=== PATIENT | male | born 1965 | race Caucasian/White ===

== ENCOUNTER 2016-03-13 05:55 | Emergency (ER) | payer OTHER ==
[~2016-03-13] VITALS: Ht 172.7 cm; Wt 125.0 kg
[~2016-03-13 05:55] MED LIST: CMD5 PO; OMEP40CA PO; PRAM1TAB52 PO
[2016-03-13 05:59] VITALS: Ht 172.7 cm; Wt 125.0 kg
[2016-03-13] MEDS ORDERED: PROPARACAINE HCL 0.5% OP SOLN 15 ML BTL OP STA (06:02)
[2016-03-13] MEDS ORDERED: VANCOMYCIN INJ 2,000 MG in SODIUM CHLORIDE 0.9% 500ML 500 ML IV STA (06:09)
[2016-03-13] MEDS ORDERED: ACETAMINOPHEN 500 MG TAB PO STA (06:09)
[2016-03-13] MEDS ORDERED: CEFTRIAXONE SOD INJ 2,000 MG in DEXTROSE 5% 50ML 50 ML IV STA (06:09)
[2016-03-13] MEDS ORDERED: WARF5TAB90 PO (06:15)
[2016-03-13] MEDS ORDERED: DEXAMETHASONE SOD INJ 10 MG/ML VIAL IV ONE (06:15)
[2016-03-13 06:36] LABS: BASO % 0.6 %; BASO ABS # 0.03 K/uL (0-0.2); COMPLETE YES; EOS % 7.7 %; HEMATOCRIT 43.1 % (42-52); IG% 0.2 %; LYMPH % 32.8 %; LYMPH ABS # 1.57 K/uL (1.2-3.4); MEAN CELL VOLUME 88.5 fL (80-100); MEAN CORPUSCULAR HEMOGLOBIN 30.4 pg (25-34); MEAN CORPUSCULAR HGB CONC 34.3 g/dl (32-36); MEAN PLATELET VOLUME 8.9 fL (7.4-10.4); MONO % 11.9 %; NEUT % 46.8 %; PLATELET COUNT 220 K/uL (130-400); RED BLOOD COUNT 4.87 M/uL (4.7-6.1); WHITE BLOOD COUNT 4.78 K/uL (4.8-10.8)
[2016-03-13] MEDS ORDERED: CIPROFLOXACIN HCL 0.3% OP SOLN 2.5 ML BTL OP STA (06:39)
[2016-03-13 06:57] LABS: INR 2.1 (0.9-1.1); PARTIAL THROMBOPLASTIN RATIO 1.5; PROTHROMBIN TIME (PATIENT) 23.2 SECONDS (9.0-12.0)
[2016-03-13 07:08] LABS: CALCIUM 9.1 mg/dl (8.5-10.1); CREATININE 0.8 mg/dl (0.60-1.40); POTASSIUM 4.1 mmol/L (3.5-5.1)
--- NOTE | 2016-03-13 08:19 | DIAGNOSTIC IMAGING REPORT ---
CT ORBITS/SELLA/TEMP WITH CT DOSE: 966.75 mGy.cm CLINICAL HISTORY: Left orbital infection. Possible orbital cellulitis. TECHNIQUE: The patient was scanned in a dynamic helical fashion during intravenous administration of 94 cc of Optiray 320. COMPARISON STUDY: None. FINDINGS: No salivary gland masses are visualized. There is no evidence of pathologic adenopathy. There is preseptal left periorbital edema, consistent with the diagnosis of a cellulitis. There is a tiny collection adjacent the left globe laterally. This may represent a small abscess. There is no evidence of a post septal abscess. There is mild mucosal thickening within the right maxilla sinus. There is a left maxilla sinus polyp/retention cyst. There are inflammatory changes within the void and sphenoid sinuses. There is sphenoid sinus wall thickening suggesting a chronic process. IMPRESSION: 1. Edema adjacent to the left globe with a possible tiny abscess adjacent the lateral margin of the left globe. The findings are consistent with the clinical diagnosis of a orbital cellulitis. There is no evidence of a post septal abscess. 2. Inflammatory changes within the maxillary ethmoid and sphenoid sinuses. Electronically signed by: Leroy Moran M.D. 03/13/2016 8:17 AM Dictated Date/Time: 03/13/2016 8:12 AM
[2016-03-13 09:45] VITALS: TEMP 36.7
--- NOTE | 2016-03-13 10:33 | EMERGENCY ROOM VISIT NOTE ---
ED Visit Note First contact with patient: 09:15 Patient care was assumed from Lexie Lora PA-C at the time of shift change. Please see Ms. Lora's dictation for full history of present illness and emergency Department course outside of this dictation. In short, the patient has what appears to be a left periorbital cellulitis on examination. Blood work was obtained and he does not have an elevated white blood cell count or lactic acid. The patient does have some pain with ocular movement of the left thigh, and CT scan was pending at the time of shift change. The patient's CT scan returned as below: CT ORBITS/SELLA/TEMP WITH CT DOSE: 966.75 mGy.cm CLINICAL HISTORY: Left orbital infection. Possible orbital cellulitis. TECHNIQUE: The patient was scanned in a dynamic helical fashion during intravenous administration of 94 cc of Optiray 320. COMPARISON STUDY: None. FINDINGS: No salivary gland masses are visualized. There is no evidence of pathologic adenopathy. There is preseptal left periorbital edema, consistent with the diagnosis of a cellulitis. There is a tiny collection adjacent the left globe laterally. This may represent a small abscess. There is no evidence of a post septal abscess. There is mild mucosal thickening within the right maxilla sinus. There is a left maxilla sinus polyp/retention cyst. There are inflammatory changes within the void and sphenoid sinuses. There is sphenoid sinus wall thickening suggesting a chronic process. IMPRESSION: 1. Edema adjacent to the left globe with a possible tiny abscess adjacent the lateral margin of the left globe. The findings are consistent with the clinical diagnosis of a orbital cellulitis. There is no evidence of a post septal abscess. 2. Inflammatory changes within the maxillary ethmoid and sphenoid sinuses. The CT scan is concerning for periorbital cellulitis and abscess. I discussed the case with ophthalmology, Dr. Minor, and we do not have the capacity to handle orbital surgery at this facility if his abscess requires drainage. Because of this the recommendation was for transfer to a tertiary care center. I discussed the CT findings and recommendations with the patient. He has a preference to go to [facility], and I spoke with the emergency department. The ED attending Dr. Dickson accepted transfer to the emergency department. Appropriate paperwork and consents were completed. The patient will be transferred via ALS. He remained in stable condition until the time of his transfer. Problem List Medical Problems: (1) Shelton esophagus Status: Chronic (2) Hernia, incisional Status: Resolved Surgical Problems: (1) H/O exploratory laparotomy Status: Resolved Current/Historical Medications Scheduled Omeprazole (Prilosec), 40 MG PO DAILY Pramipexole Dihydrochloride (Mirapex), 0.5 MG PO HS Warfarin Sod (Coumadin), 5 MG PO DAILY@16 Warfarin Sodium (Coumadin), Unknown Dose PO DAILY Allergies Coded Allergies: Latex (Verified Allergy, Intermediate, RASH, 03/13/16) Penicillin V (Verified Allergy, Intermediate, RASH, 03/13/16) Clarithromycin (Verified Allergy, Unknown, 0, 03/13/16) Vital Signs Date Time Temp Pulse Resp B/P Pulse Ox O2 Delivery O2 Flow Rate FiO2 03/13/16 09:45 36.7 78 18 153/99 96 Room Air 03/13/16 08:02 68 18 156/88 95 Room Air 03/13/16 06:11 164/94 03/13/16 05:59 36.8 77 18 174/98 95 Room Air Laboratory Results 03/13/16 06:20 Red Blood Count 4.87, Mean Corpuscular Volume 88.5, Mean Corpuscular Hemoglobin 30.4, Mean Corpuscular Hemoglobin Concent 34.3, Mean Platelet Volume 8.9, Neutrophils (%) (Auto) 46.8, Lymphocytes (%) (Auto) 32.8, Monocytes (%) (Auto) 11.9, Eosinophils (%) (Auto) 7.7, Basophils (%) (Auto) 0.6, Neutrophils # (Auto ) 2.23, Lymphocytes # (Auto) 1.57, Monocytes # (Auto) 0.57, Eosinophils # (Auto ) 0.37, Basophils # (Auto) 0.03 03/13/16 06:20 Test 03/13/16 06:20 03/13/16 06:22 White Blood Count 4.78 K/uL (4.8-10.8) Red Blood Count 4.87 M/uL (4.7-6.1) Hemoglobin 14.8 g/dL (14.0-18.0) Hematocrit 43.1 % (42-52) Mean Corpuscular Volume 88.5 fL (80-100) Mean Corpuscular Hemoglobin 30.4 pg (25-34) Mean Corpuscular Hemoglobin Concent 34.3 g/dl (32-36) Platelet Count 220 K/uL (130-400) Mean Platelet Volume 8.9 fL (7.4-10.4) Neutrophils (%) (Auto) 46.8 % Lymphocytes (%) (Auto) 32.8 % Monocytes (%) (Auto) 11.9 % Eosinophils (%) (Auto) 7.7 % Basophils (%) (Auto) 0.6 % Neutrophils # (Auto) 2.23 K/uL (1.4-6.5) Lymphocytes # (Auto) 1.57 K/uL (1.2-3.4) Monocytes # (Auto) 0.57 K/uL (0.11-0.59) Eosinophils # (Auto) 0.37 K/uL (0-0.5) Basophils # (Auto) 0.03 K/uL (0-0.2) RDW Standard Deviation 40.2 fL (36.4-46.3) RDW Coefficient of Variation 12.5 % (11.5-14.5) Immature Granulocyte % (Auto) 0.2 % Immature Granulocyte # (Auto) 0.01 K/uL (0.00-0.02) Prothrombin Time 23.2 SECONDS (9.0-12.0) Prothromb Time International Ratio 2.1 (0.9-1.1) Activated Partial Thromboplast Time 39.2 SECONDS (21.0-31.0) Partial Thromboplastin Ratio 1.5 Anion Gap 10.0 mmol/L (3-11) Est Creatinine Clear Calc Drug Dose 139.1 ml/min Estimated GFR () 119.0 Estimated GFR (Non- 102.7 BUN/Creatinine Ratio 19.0 (10-20) Calcium Level 9.1 mg/dl (8.5-10.1) Chemistry Specimen Hemolysis Bedside Lactic Acid Venous 0.94 mmol/L (0.90-1.70) Medications Administered Medications (Trade) Dose Ordered Sig/Sarah Route Start Time Stop Time Status Last Admin Dose Admin Proparacaine HCl (Alcaine 0.5% Oph Soln) 2 drops NOW STAT OP 03/13/16 06:02 03/13/16 06:04 DC 03/13/16 06:02 2 DROPS Dexamethasone Sodium Phosphate (Decadron Inj) 10 mg NOW ONCE IV 03/13/16 06:15 03/13/16 06:17 DC 03/13/16 06:35 10 MG Acetaminophen 1000 mg 1,000 mg NOW STAT PO 03/13/16 06:09 03/13/16 06:17 DC 03/13/16 06:35 1,000 MG Ceftriaxone Sodium 2000 mg/ Dextrose 70 ml @ 100 mls/hr ONE STAT IV 03/13/16 06:09 03/13/16 06:50 DC 03/13/16 07:02 100 MLS/HR Vancomycin HCl/ Sodium Chloride (Vancomycin Inj/ Nss 500ml) 540 ml @ 200 mls/hr ONE STAT IV 03/13/16 06:09 03/13/16 08:50 DC 03/13/16 08:00 200 MLS/HR Ciprofloxacin HCl (Ciprofloxacin 0.3% Op Soln) 1 drops NOW STAT OP 03/13/16 06:39 03/13/16 06:41 DC 03/13/16 06:53 1 DROPS Departure Information Impression Primary Impression: Periorbital cellulitis of left eye Additional Impression: Abscess of left periorbital region Dispostion Transfer Acute Care Facility Referrals Baljeet De La Cruz M.D.([facility]) (PCP) Patient Instructions A Signature Page, My [facility]
[2016-03-13 10:35] VITALS: BP 155/96; PULSE 88; O2SAT 95
--- NOTE | 2016-03-22 06:23 | EMERGENCY ROOM VISIT NOTE ---
History First contact with patient: 06:02 Chief Complaint: EYE PAIN Stated Complaint: SWOLLEN LEFT EYE, BURNING, EYE PAIN History of Present Illness The patient is a 51 year old male who presents to the Emergency Room with complaints of swollen left eye with white drainage and pain for the past day. Patient went to the family yesterday and was started on clindamycin. He states this has gotten worse. He describes pain as throbbing, ranging in severity 6 out of 10. He has pain with EOMI. Patient denies loss of vision, chest pain, dyspnea, fever, chills, cough, congestion, injury to the eye, ear pain, dental pain, sore throat, dysphagia. Tetanus is current. His renal carcinoma is in remission. No recent chemotherapy or radiation. Review of Systems See HPI for pertinent positives & negatives. A total of 10 systems reviewed and were otherwise negative. Past Medical/Surgical History Medical Problems: (1) Shelton esophagus (2) Hernia, incisional (3) Pulmonary embolism Surgical Problems: (1) H/O exploratory laparotomy Social History Smoking Status: Never Smoker Drug Use: none Marital Status: Housing Status: lives with family Occupation Status: employed Current/Historical Medications Scheduled Omeprazole (Prilosec), 40 MG PO DAILY Pramipexole Dihydrochloride (Mirapex), 0.5 MG PO HS Warfarin Sod (Coumadin), 5 MG PO DAILY@16 Warfarin Sodium (Coumadin), Unknown Dose PO DAILY Allergies Coded Allergies: Latex (Verified Allergy, Intermediate, RASH, 03/13/16) Penicillin V (Verified Allergy, Intermediate, RASH, 03/13/16) Clarithromycin (Verified Allergy, Unknown, 0, 03/13/16) Physical Exam Vital Signs Date Time Temp Pulse Resp B/P Pulse Ox O2 Delivery O2 Flow Rate FiO2 03/13/16 10:35 88 18 155/96 95 Room Air 03/13/16 09:45 36.7 78 18 153/99 96 Room Air 03/13/16 08:02 68 18 156/88 95 Room Air 03/13/16 06:11 164/94 03/13/16 05:59 36.8 77 18 174/98 95 Room Air Right Eye Acuity: 20/30 Physical Exam VITALS: Vitals are noted on the nurse's note and reviewed by myself. Vital signs stable. GENERAL: Pleasant male, in no acute distress, nondiaphoretic, well-developed well-nourished. SKIN: Left eye with periorbital edema and erythema concerning for cellulitis The rest of the skin was without rashes, erythema, edema, or bruising. There is no tenting of the skin. Capillary reflex less than 2 seconds. HEAD: Normocephalic atraumatic. EARS: External auditory canals clear, tympanic membranes pearly ruiz without erythema or effusion bilaterally. EYES: Pupils equal round and reactive to light and accommodation. Left conjunctiva with injection and chemosis present with minimal white discharge; right Conjunctivae without injection, sclerae without icterus. Extraocular movements intact. Painful EOMI of the left eye. NOSE: Patent, turbinates without inflammation or discharge. No sinus tenderness. MOUTH: Mucous membranes moist. Tonsils are not enlarged. Pharynx without erythema or exudate. Uvula midline. Airway patent. Tongue does not deviate. NECK: Supple without nuchal rigidity. No lymphadenopathy. No thyromegaly. Cervical spine is nontender. No JVD. HEART: Regular rate and rhythm LUNGS: Clear to auscultation bilaterally without wheezes, rales or rhonchi. No dullness to percussion. No retractions or accessory muscle use. ABDOMEN: Positive bowel sounds x 4. Normal tympanic percussion. Soft, nontender, without masses or organomegaly. Perales sign negative. No guarding or rebound tenderness. MUSCULOSKELETAL: No muscle atrophy, erythema, noted. NEURO: Patient was alert and oriented to person place and time. Normal sensation to light and sharp touch. No focal neurological deficits. Medical Decision & Procedures Laboratory Results 03/13/16 06:20 Red Blood Count 4.87, Mean Corpuscular Volume 88.5, Mean Corpuscular Hemoglobin 30.4, Mean Corpuscular Hemoglobin Concent 34.3, Mean Platelet Volume 8.9, Neutrophils (%) (Auto) 46.8, Lymphocytes (%) (Auto) 32.8, Monocytes (%) (Auto) 11.9, Eosinophils (%) (Auto) 7.7, Basophils (%) (Auto) 0.6, Neutrophils # (Auto ) 2.23, Lymphocytes # (Auto) 1.57, Monocytes # (Auto) 0.57, Eosinophils # (Auto ) 0.37, Basophils # (Auto) 0.03 03/13/16 06:20 Test 03/13/16 06:20 03/13/16 06:22 White Blood Count 4.78 K/uL (4.8-10.8) Red Blood Count 4.87 M/uL (4.7-6.1) Hemoglobin 14.8 g/dL (14.0-18.0) Hematocrit 43.1 % (42-52) Mean Corpuscular Volume 88.5 fL (80-100) Mean Corpuscular Hemoglobin 30.4 pg (25-34) Mean Corpuscular Hemoglobin Concent 34.3 g/dl (32-36) Platelet Count 220 K/uL (130-400) Mean Platelet Volume 8.9 fL (7.4-10.4) Neutrophils (%) (Auto) 46.8 % Lymphocytes (%) (Auto) 32.8 % Monocytes (%) (Auto) 11.9 % Eosinophils (%) (Auto) 7.7 % Basophils (%) (Auto) 0.6 % Neutrophils # (Auto) 2.23 K/uL (1.4-6.5) Lymphocytes # (Auto) 1.57 K/uL (1.2-3.4) Monocytes # (Auto) 0.57 K/uL (0.11-0.59) Eosinophils # (Auto) 0.37 K/uL (0-0.5) Basophils # (Auto) 0.03 K/uL (0-0.2) RDW Standard Deviation 40.2 fL (36.4-46.3) RDW Coefficient of Variation 12.5 % (11.5-14.5) Immature Granulocyte % (Auto) 0.2 % Immature Granulocyte # (Auto) 0.01 K/uL (0.00-0.02) Prothrombin Time 23.2 SECONDS (9.0-12.0) Prothromb Time International Ratio 2.1 (0.9-1.1) Activated Partial Thromboplast Time 39.2 SECONDS (21.0-31.0) Partial Thromboplastin Ratio 1.5 Anion Gap 10.0 mmol/L (3-11) Est Creatinine Clear Calc Drug Dose 139.1 ml/min Estimated GFR () 119.0 Estimated GFR (Non- 102.7 BUN/Creatinine Ratio 19.0 (10-20) Calcium Level 9.1 mg/dl (8.5-10.1) Chemistry Specimen Hemolysis Bedside Lactic Acid Venous 0.94 mmol/L (0.90-1.70) Medications Administered Medications (Trade) Dose Ordered Sig/Sarah Route Start Time Stop Time Status Last Admin Dose Admin Proparacaine HCl (Alcaine 0.5% Oph Soln) 2 drops NOW STAT OP 03/13/16 06:02 03/13/16 06:04 DC 03/13/16 06:02 2 DROPS Dexamethasone Sodium Phosphate (Decadron Inj) 10 mg NOW ONCE IV 03/13/16 06:15 03/13/16 06:17 DC 03/13/16 06:35 10 MG Acetaminophen 1000 mg 1,000 mg NOW STAT PO 03/13/16 06:09 03/13/16 06:17 DC 03/13/16 06:35 1,000 MG Ceftriaxone Sodium 2000 mg/ Dextrose 70 ml @ 100 mls/hr ONE STAT IV 03/13/16 06:09 03/13/16 06:50 DC 03/13/16 07:02 100 MLS/HR Vancomycin HCl/ Sodium Chloride (Vancomycin Inj/ Nss 500ml) 540 ml @ 200 mls/hr ONE STAT IV 03/13/16 06:09 03/13/16 08:50 DC 03/13/16 08:00 200 MLS/HR Ciprofloxacin HCl (Ciprofloxacin 0.3% Op Soln) 1 drops NOW STAT OP 03/13/16 06:39 03/13/16 06:41 DC 03/13/16 06:53 1 DROPS Procedure Slit Lamp Examination Indication: Left eye erythema and drainage The left eye was prepped with topical proparacaine. Slit lamp examination was performed in the standard fashion. Cornea appeared clear. Anterior chamber clear. Conjunctiva injection present of the left eye with clear white discharge present. Fluorescein examination performed and revealed no uptake. No foreign bodies noted. Negative Benji sign. The patient tolerated the procedure well without complication. ED Course Prior records reviewed and summarized as above. Triage Nursing notes reviewed. Additional history obtained from family The patient's history was concerning for swelling and redness of the skin around the left eye. Differential diagnosis: Etiologies such as orbital cellulitis, preseptal cellulitis, abscess, MRSA infection, conjunctivitis, as well as others were entertained.. Physical examination: As above ER treatment provided: Rocephin, vancomycin On reassessment the patient felt better. Diagnostics interpreted by me: The labs revealed no anemia No leukocytosis. Negative lactic acid Imaging studies: Pending Case was signed out to Keegan Gonzalez PA-C pending CT and reevaluation in stable condition. Medical Decision As above Impression Primary Impression: Preseptal cellulitis of left eye Departure Information Referrals Baljeet De La Cruz M.D.([facility]) (PCP) Patient Instructions A Signature Page, My [facility]
[2016-05-01] MEDS ORDERED: WARF5TAB7 PO (14:58)
[2016-05-01] MEDS ORDERED: WARF7.5T4 PO (14:58)
[2016-05-01] MEDS ORDERED: ACET325T96 PO (14:59)
[2016-05-10] MEDS ORDERED: ENOX120I SQ (07:21)
[2016-05-10] MEDS ORDERED: OXYC-57 PO (10:34)
== END 2016-03-13 10:50 | disposition short-term general hospital (02) ==
LOC: C.EDB 05:56
DX: L03.213 Periorbital cellulitis (principal); H05.012 Cellulitis of left orbit; Z79.4 Long term (current) use of insulin; K22.70 Barrett's esophagus without dysplasia

== ENCOUNTER → 2016-05-10 | Day surgery (SDC) | payer OTHER ==
[2016-05-01 15:00] VITALS: BMI 42.0
--- NOTE | 2016-05-01 15:29 | PAT Medication Instructions ---
Service Date May 01, 2016. Current Home Medication List Acetaminophen Tab (Tylenol), 650 MG PO PRN Omeprazole (Prilosec), 40 MG PO QAM Pramipexole Dihydrochloride (Mirapex), 0.5 MG PO HS Warfarin Sod (Jantoven), 5 MG PO 2XWEEK Warfarin Sod (Jantoven), 7.5 MG PO 5XWEEK Medication Instructions For Your Scheduled Surgery - Instructions per [facility] (to bridge with Lovenox): Warfarin Sod (Jantoven), 5 MG PO 2XWEEK Warfarin Sod (Jantoven), 7.5 MG PO 5XWEEK - Take the following medications the morning of surgery with a sip of water OTHERWISE NOTHING TO EAT OR DRINK AFTER MIDNIGHT: Omeprazole (Prilosec), 40 MG PO QAM Acetaminophen Tab (Tylenol), 650 MG PO PRN (may take if needed up to 4 hours prior to surgery) - DO NOT take the following medications the night before surgery: Pramipexole Dihydrochloride (Mirapex), 0.5 MG PO HS If you have any questions please call us at [phone] or [phone] or [phone]
--- NOTE | 2016-05-06 21:01 | HISTORY & PHYSICAL EXAMINATION ---
DATE OF ADMISSION: 05/10/2016 PREOPERATIVE HISTORY AND PHYSICAL CHIEF COMPLAINT: Left shoulder pain. HISTORY OF PRESENT ILLNESS: The patient is a 51-year-old male with left shoulder pain. He states that the pain was and nontraumatic in nature. The pain occurs constantly. He describes his symptoms as moderate. The pain is described as aching and sharp. He has been treated with a cortisone injection and physical therapy with no relief. He wishes to proceed with a surgical option. PAST MEDICAL HISTORY: Significant for pulmonary embolus, kidney cancer, factor V Leiden deficiency. PAST SURGICAL HISTORY: Kidney cryotherapy, sinus surgery, and shoulder surgery. SOCIAL HISTORY: He drinks alcohol occasionally. Denies smoking or tobacco use. Denies IV or illegal drug use. Lives in a [address] currently. 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 FAMILY HISTORY: His sister has a history of blood clots. MEDICATIONS: Mirapex 0.5 mg 1 tablet 3 times a day, omeprazole 40 mg 1 capsule every day, warfarin 5 mg 1 tablet every day, and acetaminophen 325 mg p.r.n. ALLERGIES: LATEX, PENICILLINS, AND CLARITHROMYCIN. REVIEW OF SYSTEMS: He denies fevers, chills, headaches, weight loss, double vision, blurry vision, sore throat, hearing loss, tremors, dizziness, numbness or tingling, tired, thirsty, hot and cold intolerance, abdominal pain, nausea, vomiting, diarrhea, heartburn, chest pain, swelling into the legs or feet, frequency, going to the bathroom, pain or burning with urination, wheezing, cough, shortness of breath, depression, thoughts to harm herself or harm others, nervousness or anxiousness. It is positive for joint pain of his left shoulder as well as swelling of his left shoulder. OBJECTIVE: GENERAL APPEARANCE: The patient is a 51-year-old male, sitting, in no acute distress. He is well dressed, well nourished. He is awake, alert and oriented x3. VITAL SIGNS: He is 5 feet 8 inches tall, 265 pounds blood pressure is 140/84. HEENT: Extraocular movements are intact. PERRLA. Mucosa was moist. No septal deviation. NECK: Supple with no lymphadenopathy, no JVD, no thyromegaly. HEART: Regular rate and rhythm with no murmurs or gallops. LUNGS: Clear to auscultation but distant. No wheezing or rhonchi. ABDOMEN: Soft, nontender, nondistended, normal bowel sounds hepatosplenomegaly. EXTREMITIES: Paying particular attention to the left upper extremity. He has tenderness over the AC joint as well as over the biceps tendon. He has active forward flexion to 90 degrees, abduction to 90 degrees, and external rotation to 35 degrees. He has a positive empty can, positive Mahmood Alvarez, positive Neer's. NEUROLOGIC: Cranial nerves II-XII are intact. Pulses were compared bilaterally and were equal. IMAGING: MRI of the left shoulder demonstrates supraspinatus calcific tendinopathy, subscapularis tendinopathy with mild interstitial tearing in the mid portion of its insertion, posterior superior labral tear, and mild acromioclavicular osteoarthritis. IMPRESSION: Calcific tendinitis of the left shoulder with possible rotator cuff tear. PLAN: The patient will be scheduled for a left shoulder subacromial decompression and possible rotator cuff repair. The patient has failed conservative therapies which cortisone injections, physical therapy and nonsteroidal anti-inflammatories. He would like to proceed with a left shoulder subacromial decompression, possible rotator cuff repair and removal of calcific deposits. Risks and benefits to surgery were discussed and included but not limited to blood loss, nerve damage, blood vessel damage, failure to relieve all pain, revision surgeries, retear and anesthesia risks. The patient understands these risks and wishes to proceed. All questions were answered to his satisfaction. PARTH
[~2016-05-10] VITALS: Ht 172.7 cm; Wt 126.5 kg
[~2016-05-10] MED LIST changes: +ACET325T96 PO; +ACETAMINOPHEN 325 MG TAB PO PRN; +ATROPINE SULFATE 0.1 MG/ML 5ML SYR IV PRN; +BUPIVACAINE 0.5 % 5 MG/1 ML MPF 30ML VIAL ONE; +BUPIVACAINE 0.5 % 5 MG/1 ML PF 10ML VIAL ONE; +CLINDAMYCIN 600 MG/54 ML D5W IV SCH; -CMD5 PO; +DEXAMETHASONE SOD INJ 4 MG/ML VIAL ONE; +ENOX120I SQ; +EpHEDrine SULFATE 50MG/5ML SYR ONE; +EpHEDrine SULFATE INJ 50 MG/ML AMP IV PRN; +FENTANYL CITRATE INJ 50 MCG/1 ML 2 ML VIAL ONE; +FLUMAZENIL 0.1 MG/1 ML 10 ML VIAL IV PRN; +GLYCOPYRROLATE INJ 0.2 MG/ML VIAL ONE; +HYDROmorphone INJ 2 MG/ML SYR/VIAL ONE; +KETOROLAC TROMETHAMINE 30 MG/ML VIAL ONE; +LABETALOL HCL IV 5 MG/ML 20ML IV PRN; +LACTATED RINGER'S 1000ML 1,000 ML IV SCH; +LIDOCAINE HCL 2% 2 ML VIAL (20MG/ML) ONE; +LIDOCAINE/EPINEPHRINE 1% 20 ML VIAL ONE; +MEPIVACAINE HCL 1.5% 30 ML VIAL ONE; +MIDAZOLAM HCL 1 MG/ML 2ML VIAL ONE; +NALOXONE HCL 0.4 MG/1 ML VIAL/CARP IV PRN; +NEOSTIGMINE METHYLSULFATE 5 MG/5 ML SYR ONE; +OMEP20CA9 PO; +ONDANSETRON INJ 2 MG/ML 2 ML VIAL IV PRN; +ONDANSETRON INJ 2 MG/ML 2 ML VIAL ONE; +OXYC-57 PO; +OXYCODONE/ACETAMINOPHEN 5-325 TAB PO PRN; +PROMETHAZINE HCL INJ 12.5 MG in SODIUM CHLORIDE 0.9% 50ML 50 ML IV PRN; +PROPOFOL IV EMULSION 10 MG/ML 20 ML VIAL IV ONE; +ROCURONIUM BROMID 50MG/5ML SYR ONE; +SUCCINYLCHOLINE 100MG/5ML SYR IV ONE; +WARF5TAB7 PO; +WARF7.5T4 PO
--- NOTE | 2016-05-10 06:55 | History & Physical Bridge Note ---
H&P Re-Evaluation Bridge Note: I have examined the patient, reviewed the History & Physical and in the interval since the performance of the History & Physical I have noted the following changes of clinical significance: No changes noted
[2016-05-10 07:10] VITALS: BP 150/90; PULSE 73; TEMP 36.9; O2SAT 95; Ht 172.7 cm; Wt 126.5 kg
[2016-05-10 07:18] LABS: INR 1.1 (0.9-1.1); PARTIAL THROMBOPLASTIN RATIO 1.2; PROTHROMBIN TIME (PATIENT) 11.4 SECONDS (9.0-12.0)
--- NOTE | 2016-05-10 10:39 | Discharge Instructions ---
Discharge Instructions Date of Service May 10, 2016. Admission Reason for Admission: Left Shoulder Impingement Syndrome, Rotator Cuff T Discharge Discharge Diagnosis / Problem: Left shoulder removal of calcific deposits, extensive debridement, SAD Discharge Goals Goal(s): Decrease discomfort, Improve function Activity Recommendations Activity Limitations: per Instructions/Follow-up section . Instructions / Follow-Up Instructions / Follow-Up [facility] DISCHARGE INSTRUCTIONS: SHOULDER ARTHROSCOPY with or without Distal Clavicle Excision SELF CARE INSTRUCTIONS AFTER: A. You are allowed to use your arm actively as comfort allows. Recommend NOT doing repetitive overhead activity or heavy lifting. B. You should start Physical Therapy within 1-3 days from your surgery. You will be provided a prescription with specific restrictions, if needed, at time of discharge. C. You can discontinue the sling as comfort allows within one to two days after surgery. A. At 48 hours post-operatively, you may change your dressing. . (Leave white steri-strips intact if present). Use band-aids and change daily. You are allowed to shower at this time and get the incision area wet, but DO NOT soak or submerge incision area in water. (No baths, swimming pools, hot tubs) B. Do NOT apply soap or any ointment/lotions directly over incision. C. You may use ice as needed to operative shoulder SPECIAL CARE INSTRUCTIONS: VERY IMPORTANT TO READ AND REVIEW A. There are a few signs you need to watch for after you are home. Call [facility] at [phone] if you experience any of the following: a. Increased severe shoulder pain. Some pain is expected especially when you exercise b. Increased swelling in your shoulder or arm; pain or swelling in either upper extremity. (Note: swelling and stiffness is normal and expected for several weeks post op, depending on type of shoulder surgery you had). c. Any fluid or drainage from the incision; redness of the incision. d. Shortness of breath or chest pain. B. Please call [facility] at [phone] if you have any questions or concerns about your operation or recovery. C. Call your physician if: a. Temperature is greater than 101 degrees (F). b. Pain is not relieved by prescribed pain medications. c. Increase drainage or redness from incision. d. Unanswered questions or concerns. D. Pain Medication: a. You will be prescribed pain medication upon discharge that should last till your first post-operative appointment. b. You may also take Advil or Ibuprofen between medication doses if you do not have any contraindication to taking them. c. You may also take Advil or Ibuprofen in place of your pain medication if the pain is tolerable. d. If you experience nausea and/or skin rash, discontinue this medication and contact our office for an alternative medication. e. Caution- narcotic pain medication can cause constipation. FOLLOW UP VISIT: Please call [facility] at [phone] to schedule a follow up appointment 10-14 days from your surgery date. Current Hospital Diet Patient's current hospital diet: Regular Diet Discharge Diet Recommended Diet: Regular Diet Procedures Procedures Performed: Left Shoulder: Arthrscopy, Subacromial Decompression, Removal of Calcium Deposits, Possible Rotator Cuff Repair Pending Studies Studies pending at discharge: no Medical Emergencies . Who to Call and When: Medical Emergencies: If at any time you feel your situation is an emergency, please call 911 immediately. . Non-Emergent Contact Non-Emergency issues call your: Surgeon Call Non-Emergent contact if: temperature is above 101.5, your pain is worsening, wound has increased drainage, wound has increased redness . "Provider Documentation" section prepared by Roger Holliday. VTE Core Measure Inpt VTE Proph given/why not?: Treatment not indicated [place] Drug Monitoring Program Search Results: patient reviewed within database, no issues identified Drug Monitoring Findings: Patient's Status reviewed and no alert or issues with this patient
--- NOTE | 2016-05-10 10:52 | [facility] Post Operative Brief Note ---
Immediate Operative Summary Operative Date May 10, 2016. Pre-Operative Diagnosis Left Shoulder calcific deposits in the RTC, impingement, labral tear, synovitis Post-Operative Diagnosis same Procedure(s) Performed Left Shoulder: Arthrscopy, Subacromial Decompression, Removal of Calcium Deposits, extensive debridement Surgeon Dr. 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
[2016-05-10 11:45] VITALS: BP 131/72; PULSE 65; TEMP 36.7; O2SAT 95
[2016-05-10 12:09] VITALS: O2SAT 94
[2016-05-10 12:15] VITALS: BP 113/65; PULSE 67; O2SAT 93
--- NOTE | 2016-05-10 12:18 | Anesthesiology Progress Note ---
Anesthesia Post Op Note Date & Time May 10, 2016 at 12:18 Vital Signs Pain Intensity: 0 Vital Signs Past 12 Hours Date Time Temp Pulse Resp B/P Pulse Ox O2 Delivery O2 Flow Rate FiO2 05/10/16 12:09 94 Nasal Cannula 1 05/10/16 11:45 36.7 65 20 131/72 95 Room Air 2 05/10/16 11:35 36.0 72 22 132/81 94 Nasal Cannula 2 05/10/16 11:25 70 17 129/86 94 Nasal Cannula 2 05/10/16 11:15 67 16 146/87 100 Mask 10 05/10/16 11:05 78 21 162/89 98 Mask 10 05/10/16 10:57 36.2 77 16 169/91 96 Mask 10 05/10/16 07:10 36.9 73 20 150/90 95 Room Air Notes Mental Status: alert / awake / arousable, participated in evaluation Pt Amnestic to Procedure: Yes Nausea / Vomiting: adequately controlled Pain: adequately controlled Airway Patency, RR, SpO2: stable & adequate BP & HR: stable & adequate Hydration State: stable & adequate Anesthetic Complications: no major complications apparent
[2016-05-10 12:45] VITALS: BP 116/77; PULSE 88; TEMP 36.5; O2SAT 93
[2016-05-10 13:17] VITALS: PULSE 77; O2SAT 92
--- NOTE | 2016-05-10 15:56 | OPERATIVE REPORT ---
DATE OF OPERATION: 05/10/2016 PREOPERATIVE DIAGNOSIS: Left shoulder impingement, calcium deposits rotator cuff, labral tear, synovitis. POSTOPERATIVE DIAGNOSIS: Same. PROCEDURES: Left shoulder subacromial decompression and extensive debridement and removal of calcific deposits in the rotator cuff. SURGEON: Dr. Gibbs. INVENTORY CONTROL ANALYST: None. ANESTHESIA: General endotracheal anesthesia with interscalene block. SPECIMENS: None. COMPLICATIONS: None. ESTIMATED BLOOD LOSS: Minimal. INDICATIONS: The patient is a 51-year-old male with persistent left shoulder pain. He has failed conservative measures including cortisone injection, physical therapy, anti-inflammatory medications. Failing conservative measures, he wished to proceed with arthroscopy. Risks, benefits, and alternatives of surgery including but not limited to infection, DVT, pain, stiffness, need for surgery, failure to relieve all symptoms, damage to blood vessels, damage to nerves, risks of anesthesia were discussed with the patient and he wished to proceed. PROCEDURE: The patient was identified, laterality was confirmed and marked. He received a preoperative antibiotic as well as interscalene block. He was transferred to the operating room, placed in supine position, induced with general endotracheal anesthesia by the anesthesia staff. He was then safely transferred to lateral decubitus position. All pressure points were well padded. Limb was placed in 10 pounds of lateral traction and then prepped and draped in usual sterile manner with ChloraPrep. Portal sites were anesthetized with lidocaine. I made a standard posterior viewing portal, made a stab incision, bluntly entered the glenohumeral joint and then spinal localization established anterior superior lateral portal. Degenerative tearing in the anterior and superior aspects of the glenoid labrum this was debrided utilizing a shaver. Synovitic change anteriorly was debrided utilizing a shaver. Cartilage of the humeral head and glenoid was normal. Undersurface of supraspinatus and infraspinatus was normal. Long head of biceps tendon and subscapularis were normal. I then removed instrumentation from the joint and entered subacromial space and established a lateral portal. There was some calcific deposit within the junction of the supraspinatus and infraspinatus that was debrided back to a stable base utilizing a shaver. There was no significant tearing of the rotator cuff, no rotator cuff repair was required. I then released the CA ligament with cautery, performed a subacromial decompression first removing the anterior inferior spur from laterally and then completing it with a cutting block technique. All instrumentation was removed from the shoulder. Portal sites were closed with nylon. Sterile dressing was applied and sling placed. All needle and sponge counts were correct at the end of procedure. The patient was transferred to the PACU in stable condition without apparent complication. I attest to the content of the Intraoperative Record and any orders documented therein. Any exceptions are noted below. ALLD
== END | disposition home or self-care (01) ==
LOC: C.ACU 06:33
PROVIDERS: ATTEND Orthopaedic Surgery
DX: M75.42 Impingement syndrome of left shoulder (principal); M71.40 Calcium deposit in bursa, unspecified site; M65.9 Synovitis and tenosynovitis, unspecified; I26.99 Other pulmonary embolism without acute cor pulmonale; D68.51 Activated protein C resistance; Z85.528 Personal history of other malignant neoplasm of kidney; Z98.890 Other specified postprocedural states; Z88.0 Allergy status to penicillin; Z88.1 Allergy status to other antibiotic agents

== ENCOUNTER 2016-05-14 07:13 | Observation (INO) | payer OTHER ==
[~2016-05-14] VITALS: Ht 172.7 cm; Wt 123.9 kg
[~2016-05-14 07:13] MED LIST changes: -ACETAMINOPHEN 325 MG TAB PO PRN; -ATROPINE SULFATE 0.1 MG/ML 5ML SYR IV PRN; -BUPIVACAINE 0.5 % 5 MG/1 ML MPF 30ML VIAL ONE; -BUPIVACAINE 0.5 % 5 MG/1 ML PF 10ML VIAL ONE; -CLINDAMYCIN 600 MG/54 ML D5W IV SCH; -DEXAMETHASONE SOD INJ 4 MG/ML VIAL ONE; -EpHEDrine SULFATE 50MG/5ML SYR ONE; -EpHEDrine SULFATE INJ 50 MG/ML AMP IV PRN; -FENTANYL CITRATE INJ 50 MCG/1 ML 2 ML VIAL ONE; -FLUMAZENIL 0.1 MG/1 ML 10 ML VIAL IV PRN; -GLYCOPYRROLATE INJ 0.2 MG/ML VIAL ONE; -HYDROmorphone INJ 2 MG/ML SYR/VIAL ONE; -KETOROLAC TROMETHAMINE 30 MG/ML VIAL ONE; -LABETALOL HCL IV 5 MG/ML 20ML IV PRN; -LACTATED RINGER'S 1000ML 1,000 ML IV SCH; -LIDOCAINE HCL 2% 2 ML VIAL (20MG/ML) ONE; -LIDOCAINE/EPINEPHRINE 1% 20 ML VIAL ONE; -MEPIVACAINE HCL 1.5% 30 ML VIAL ONE; -MIDAZOLAM HCL 1 MG/ML 2ML VIAL ONE; -NALOXONE HCL 0.4 MG/1 ML VIAL/CARP IV PRN; -NEOSTIGMINE METHYLSULFATE 5 MG/5 ML SYR ONE; -OMEP20CA9 PO; -OMEP40CA PO; -ONDANSETRON INJ 2 MG/ML 2 ML VIAL IV PRN; -ONDANSETRON INJ 2 MG/ML 2 ML VIAL ONE; -OXYCODONE/ACETAMINOPHEN 5-325 TAB PO PRN; -PROMETHAZINE HCL INJ 12.5 MG in SODIUM CHLORIDE 0.9% 50ML 50 ML IV PRN; -PROPOFOL IV EMULSION 10 MG/ML 20 ML VIAL IV ONE; -ROCURONIUM BROMID 50MG/5ML SYR ONE; -SUCCINYLCHOLINE 100MG/5ML SYR IV ONE
[2016-05-14] MEDS ORDERED: SODIUM CHLORIDE 0.9% 1000ML 1,000 ML IV STA (07:29)
[2016-05-14] MEDS: MoRPHine SULFATE 4 MG/ML 1 ML CARP\\VIAL IV PRN ×2 (07:38→08:49)
[2016-05-14 07:42] LABS: BASO % 0.4 %; BASO ABS # 0.02 K/uL (0-0.2); COMPLETE YES; EOS % 4.5 %; HEMATOCRIT 45.1 % (42-52); IG% 0.4 %; LYMPH % 34.4 %; LYMPH ABS # 1.74 K/uL (1.2-3.4); MEAN CELL VOLUME 88.1 fL (80-100); MEAN CORPUSCULAR HEMOGLOBIN 31.1 pg (25-34); MEAN CORPUSCULAR HGB CONC 35.3 g/dl (32-36); MEAN PLATELET VOLUME 8.8 fL (7.4-10.4); MONO % 10.1 %; NEUT % 50.2 %; PLATELET COUNT 244 K/uL (130-400); RED BLOOD COUNT 5.12 M/uL (4.7-6.1); WHITE BLOOD COUNT 5.06 K/uL (4.8-10.8)
[2016-05-14] MEDS ORDERED: OPTIRAY 320 IV PRN (07:45)
[2016-05-14 07:48] LABS: ISTAT CREATININE 0.7 mg/dl (0.6-1.3); ISTAT HEMOGLOBIN 16.3 g/dl (14.0-18.0); ISTAT IONIZED CALCIUM 1.16 mmol/l (1.12-1.32)
--- NOTE | 2016-05-14 07:51 | EMERGENCY ROOM VISIT NOTE ---
History Report prepared by Ruthie: Cristina Carlos Under the Supervision of: Dr. Filiberto Varghese D.O. First contact with patient: 07:25 Chief Complaint: CHEST PAIN Stated Complaint: CHEST PAIN, S/P SURGERY LEFT SHOULDER History of Present Illness The patient is a 51 year old male who presents to the Emergency Room with complaints of persistent chest pain that began around 0530 this morning. He currently rates his discomfort as a 7/10 in severity, describing his discomfort as a sharp pain. The patient states that Friday he had left shoulder surgery, noting a soreness to his left shoulder secondary to the surgery. He states that this morning he woke at 0400 with significant shortness of breath. The patient states that he was having difficulty getting enough air in. He states that around 0530 he began experiencing the chest pain. The patient localized his chest pain to his left chest, but states that now it is diffuse across his chest. He states that the pain radiates to his back. The patient states that his pain is worsened with leaning backwards. He notes pain and swelling to his right leg for the past few months. 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 He states that his PE came from his right leg in the past. The patient denies any fever, nausea, vomiting, or abdominal pain. He notes a very slight cough. The patient notes a surgical history of a kidney surgery, sinus surgery, and a previous shoulder surgery. 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 The patient states that he is a previous tobacco user. Source of History: patient Onset: 0530 this morning Position: chest Symptom Intensity: 7/10 Quality: sharp Timing: other (persistent) Modifying Factors (Worsening): other (leaning backwards) Associated Symptoms: + SOB, No abdominal pain, No fevers, No nausea, No vomiting Note: Associated Symptoms: pain and swelling to right leg Review of Systems See HPI for pertinent positives & negatives. A total of 10 systems reviewed and were otherwise negative. Past Medical & Surgical Medical Problems: (1) Shelton esophagus (2) Hernia, incisional (3) Pulmonary embolism Surgical Problems: (1) H/O exploratory laparotomy Family History Pulmonary embolism Social History Smoking Status: Unknown if Ever Smoked Drug Use: none Marital Status: Housing Status: lives with family Occupation Status: employed Current/Historical Medications Scheduled Acetaminophen Tab (Tylenol), 650 MG PO PRN Enoxaparin (Lovenox), 120 MG SQ Q12H Pramipexole Dihydrochloride (Mirapex), 0.5 MG PO HS Warfarin Sod (Jantoven), 5 MG PO 2XWEEK Warfarin Sod (Jantoven), 7.5 MG PO 5XWEEK Scheduled PRN Oxycodone/Acetaminophen 5MG/325MG (Percocet 5MG/325MG), 1-2 TABLETS PO Q4H PRN for Pain Allergies Coded Allergies: Latex (Verified Allergy, Intermediate, RASH, 05/14/16) Penicillin V (Verified Adverse Reaction, Intermediate, gi upset, 05/14/16) Clarithromycin (Verified Adverse Reaction, Unknown, DEPRESSION, 05/14/16) Physical Exam Vital Signs Date Time Temp Pulse Resp B/P Pulse Ox O2 Delivery O2 Flow Rate FiO2 05/14/16 10:03 70 18 141/91 93 Room Air 05/14/16 08:45 73 20 154/85 93 Room Air 05/14/16 08:06 68 22 144/82 94 Room Air 05/14/16 07:27 78 05/14/16 07:26 96 Room Air 05/14/16 07:26 95 Room Air 05/14/16 07:14 36.6 72 20 162/96 96 Room Air Physical Exam GENERAL: Patient is awake, alert, somewhat anxious appearing and uncomfortable. EYES: The conjunctivae are clear. The pupils are round and reactive. EARS, NOSE, MOUTH AND THROAT: The nose is without any evidence of any deformity. Mucous membranes are moist tongue is midline NECK: The neck is nontender and supple. RESPIRATORY: Normal respiratory effort is noted there is no evidence of wheezing rhonchi or rales CARDIOVASCULAR: Regular rate and rhythm noted there no murmurs rubs or gallops normal S1 normal S2 GASTROINTESTINAL: The abdomen is soft. Bowel sounds are present in all quadrants. Abdomen is nontender MUSCULOSKELETAL/EXTREMITIES: Recent left shoulder surgery site noted with swelling over the left shoulder. No erythema or warmth to the joint. Pulses were symmetric in both upper extremities. SKIN: No significant edema noted in either lower extremity. No calf tenderness. NEUROLOGIC: Patient is awake alert and oriented x3. Medical Decision & Procedures ER Provider Diagnostic Interpretation: Radiology results as stated below per my review and radiologist interpretation: CHEST ONE VIEW PORTABLE CLINICAL HISTORY: EVALUATE RESPIRATORY DISTRESS. DYSPNEA chest pain COMPARISON STUDY: 06/20/2009 FINDINGS: Moderate cardiomegaly. Lungs are clear. Diaphragms smooth. IMPRESSION: Cardiomegaly. Otherwise negative study Electronically signed by: Al Bloom M.D. 05/14/2016 8:07 AM Dictated Date/Time: 05/14/2016 7:47 AM CHEST CTA for PULMONARY ARTERIES CT DOSE: 710.06 mGy.cm HISTORY: Atypical chest pain. TECHNIQUE: Multiaxial CT images of the chest were performed following the intravenous administration of contrast to evaluate the pulmonary arteries. Maximal intensity projection images were also obtained. COMPARISON STUDY: Chest CTA 10/21/2015. FINDINGS: There is a normal caliber thoracic aorta with no evidence for dissection. There is no evidence for pulmonary embolus. No pleural effusions. No pneumothorax. Hepatic steatosis. Metallic clips are again noted within the liver. There is left basilar subsegmental atelectasis. Punctate calcified granuloma within the right middle lobe on image 129. There are a few calcified mediastinal lymph nodes. No mediastinal or hilar lymphadenopathy. The central airways are patent. IMPRESSION: No evidence for pulmonary embolus. Electronically signed by: Eric Low M.D. 05/14/2016 8:21 AM Dictated Date/Time: 05/14/2016 8:11 AM Laboratory Results 05/14/16 07:27 Red Blood Count 5.12, Mean Corpuscular Volume 88.1, Mean Corpuscular Hemoglobin 31.1, Mean Corpuscular Hemoglobin Concent 35.3, Mean Platelet Volume 8.8, Neutrophils (%) (Auto) 50.2, Lymphocytes (%) (Auto) 34.4, Monocytes (%) (Auto) 10.1, Eosinophils (%) (Auto) 4.5, Basophils (%) (Auto) 0.4, Neutrophils # (Auto ) 2.54, Lymphocytes # (Auto) 1.74, Monocytes # (Auto) 0.51, Eosinophils # (Auto ) 0.23, Basophils # (Auto) 0.02 05/14/16 07:27 Test 05/14/16 07:27 05/14/16 07:33 05/14/16 07:35 05/14/16 09:32 White Blood Count 5.06 K/uL (4.8-10.8) Red Blood Count 5.12 M/uL (4.7-6.1) Hemoglobin 15.9 g/dL (14.0-18.0) Hematocrit 45.1 % (42-52) Mean Corpuscular Volume 88.1 fL (80-100) Mean Corpuscular Hemoglobin 31.1 pg (25-34) Mean Corpuscular Hemoglobin Concent 35.3 g/dl (32-36) Platelet Count 244 K/uL (130-400) Mean Platelet Volume 8.8 fL (7.4-10.4) Neutrophils (%) (Auto) 50.2 % Lymphocytes (%) (Auto) 34.4 % Monocytes (%) (Auto) 10.1 % Eosinophils (%) (Auto) 4.5 % Basophils (%) (Auto) 0.4 % Neutrophils # (Auto) 2.54 K/uL (1.4-6.5) Lymphocytes # (Auto) 1.74 K/uL (1.2-3.4) Monocytes # (Auto) 0.51 K/uL (0.11-0.59) Eosinophils # (Auto) 0.23 K/uL (0-0.5) Basophils # (Auto) 0.02 K/uL (0-0.2) RDW Standard Deviation 40.5 fL (36.4-46.3) RDW Coefficient of Variation 12.7 % (11.5-14.5) Immature Granulocyte % (Auto) 0.4 % Immature Granulocyte # (Auto) 0.02 K/uL (0.00-0.02) Prothrombin Time 19.6 SECONDS (9.0-12.0) Prothromb Time International Ratio 1.8 (0.9-1.1) Activated Partial Thromboplast Time 38.7 SECONDS (21.0-31.0) Partial Thromboplastin Ratio 1.5 Est Creatinine Clear Calc Drug Dose 148.2 ml/min Estimated GFR () 122.2 Estimated GFR (Non- 105.5 BUN/Creatinine Ratio 15.7 (10-20) Calcium Level 9.1 mg/dl (8.5-10.1) Total Bilirubin 0.4 mg/dl (0.2-1) Aspartate Amino Transf (AST/SGOT) 41 U/L (15-37) Alanine Aminotransferase (ALT/SGPT) 69 U/L (12-78) Alkaline Phosphatase 91 U/L (45-117) Total Creatine Kinase 53 U/L (39-308) Creatine Kinase MB < 0.5 ng/ml (0.5-3.6) Creatine Kinase MB Ratio (0-3.0) Total Protein 7.3 gm/dl (6.4-8.2) Albumin 3.2 gm/dl (3.4-5.0) Globulin 4.1 gm/dl (2.5-4.0) Albumin/Globulin Ratio 0.8 (0.9-2) Chemistry Specimen Hemolysis Bedside D-Dimer 299 ng/mlFEU (0-450) Bedside Hemoglobin 16.3 g/dl (14.0-18.0) Bedside Hematocrit 48 % (42-52) Bedside Sodium 137 mEq/L (135-144) Bedside Potassium 4.3 mEq/L (3.3-5.0) Bedside Chloride 99 mEq/L (101-112) Bedside Total CO2 26 mEq/l (24-31) Anion Gap 17.0 mmol/L (16-25) Bedside Blood Urea Nitrogen 14 mg/dl (7-18) Bedside Creatinine 0.7 mg/dl (0.6-1.3) Bedside Glucose (other) 151 mg/dl (70-99) Bedside Ionized Calcium (Marni) 1.16 mmol/l (1.12-1.32) Bedside Troponin I 0.000 ng/ml (0-0.045) Laboratory results per my review. Medications Administered Medications (Trade) Dose Ordered Sig/Sarah Route Start Time Stop Time Status Last Admin Dose Admin Sodium Chloride (Nss 1000ml) 1,000 ml @ 999 mls/hr Q1H1M STAT IV 05/14/16 07:29 05/14/16 08:29 DC 05/14/16 07:38 999 MLS/HR Morphine Sulfate (MoRPHine SULFATE INJ) 4 mg Q15M PRN IV 05/14/16 07:30 05/28/16 07:29 05/14/16 08:49 4 MG ECG Indication: chest pain Rate (beats per minute): 72 Rhythm: normal sinus Findings: no ectopy, other (no acute ST segment abnormalities) Comparison ECG Date: 10/23/15 Change: no significant change ED Course 0726: The patient was evaluated in room B6. A complete history and physical examination were performed. 0729: Ordered Sodium Chloride 1000 ml @ 999 mls/hr IV, Morphine Sulfate 4 mg IV. 0846: I reevaluated the patient and he is still experiencing pain. Ordered Morphine 4 mg IV. 0945: I reevaluated the patient and he is resting comfortably. 1018: I reevaluated the patient and he is resting comfortably. I discussed the exam findings and I offered evaluation for further treatment in the hospital. The patient and his are going to discuss the options. 1035: After further discussion with the patient the patient will be evaluated further. 1044: I discussed the patient's case with Jayy Macias PA-C. She is going to evaluate the patient for further treatment. Medical Decision Differential diagnosis: Etiologies such as cardiac ischemia, aortic dissection, pulmonary embolism, pneumonia, pneumothorax, musculoskeletal, infections, pericarditis, myocarditis , esophageal rupture, gastrointestinal, as well as others were entertained. Nursing notes reviewed. The patient is a 51-year-old male who presented to the department with left- sided chest pain. The patient has a history of venous thromboembolic disease. He recently had surgery on his left shoulder. The patient is currently taking Lovenox injections. The patient had very significant left-sided chest pain initially I thought his pretest probability for pulmonary and wasn't were very high given his complaints as well as his past medical history. For this reason CT the chest was obtained in the emergency department. EKG did not show any acute changes from previous in his cardiac biomarkers were negative. He even had a subsequent troponin draw which was still negative. I discussed the patient 's laboratory radiographic studies with him. Because of his ongoing symptoms I also discussed his case with the [facility]. They've agreed to evaluate the patient in the emergency department for further management and disposition. Consults Time Called: [phone] Consulting Physician: Jayy Macias PA-C Returned Call: [phone] I discussed the patient's case with Jayy Macias PA-C. She is going to evaluate the patient for further treatment. Impression Primary Impression: Left sided chest pain Scribe Attestation The scribe's documentation has been prepared under my direction and personally reviewed by me in its entirety. I confirm that the note above accurately reflects all work, treatment, procedures, and medical decision making performed by me. Departure Information Dispostion Being Evaluated By Hospitalist Referrals Baljeet De La Cruz M.D.(KASH) (PCP)
[2016-05-14 07:58] LABS: INR 1.8 (0.9-1.1); PARTIAL THROMBOPLASTIN RATIO 1.5; PROTHROMBIN TIME (PATIENT) 19.6 SECONDS (9.0-12.0)
[2016-05-14 08:06] LABS: BLOOD UREA NITROGEN 12 mg/dl (7-18); BUN/CREATININE RATIO 15.7 (10-20); CALCIUM 9.1 mg/dl (8.5-10.1); CARBON DIOXIDE 27 mmol/L (21-32); CHLORIDE 102 mmol/L (98-107); CREATININE 0.75 mg/dl (0.60-1.40); GLUCOSE 143 mg/dl (70-99); POTASSIUM 4.6 mmol/L (3.5-5.1); SODIUM 137 mmol/L (136-145)
--- NOTE | 2016-05-14 08:08 | DIAGNOSTIC IMAGING REPORT ---
CHEST ONE VIEW PORTABLE CLINICAL HISTORY: EVALUATE RESPIRATORY DISTRESS. DYSPNEA chest pain COMPARISON STUDY: 06/20/2009 FINDINGS: Moderate cardiomegaly. Lungs are clear. Diaphragms smooth. IMPRESSION: Cardiomegaly. Otherwise negative study Electronically signed by: Al Bloom M.D. 05/14/2016 8:07 AM Dictated Date/Time: 05/14/2016 7:47 AM
[2016-05-14 08:10] LABS: ALB/GLOB RATIO 0.8 (0.9-2); ALKALINE PHOSPHATASE 91 U/L (45-117); ALT/SGPT 69 U/L (12-78); AST/SGOT 41 U/L (15-37)
--- NOTE | 2016-05-14 08:23 | DIAGNOSTIC IMAGING REPORT ---
CHEST CTA for PULMONARY ARTERIES CT DOSE: 710.06 mGy.cm HISTORY: Atypical chest pain. TECHNIQUE: Multiaxial CT images of the chest were performed following the intravenous administration of contrast to evaluate the pulmonary arteries. Maximal intensity projection images were also obtained. COMPARISON STUDY: Chest CTA 10/21/2015. FINDINGS: There is a normal caliber thoracic aorta with no evidence for dissection. There is no evidence for pulmonary embolus. No pleural effusions. No pneumothorax. Hepatic steatosis. Metallic clips are again noted within the liver. There is left basilar subsegmental atelectasis. Punctate calcified granuloma within the right middle lobe on image 129. There are a few calcified mediastinal lymph nodes. No mediastinal or hilar lymphadenopathy. The central airways are patent. IMPRESSION: No evidence for pulmonary embolus. Electronically signed by: Eric Low M.D. 05/14/2016 8:21 AM Dictated Date/Time: 05/14/2016 8:11 AM
[2016-05-14] MEDS ORDERED: ONDANSETRON INJ 2 MG/ML 2 ML VIAL IV PRN (11:15)
[2016-05-14] MEDS ORDERED: NITROGLYCERIN 0.4 MG SL PER TAB CHARGE SL PRN (11:15)
[2016-05-14 11:16] VITALS: O2SAT 93; Ht 172.7 cm; Wt 123.9 kg
[2016-05-14] MEDS ORDERED: OMEP20CA9 PO (11:21)
[2016-05-14] MEDS: ENOXAPARIN 120 MG/0.8 ML SYR SQ SCH ×2 (12:00→22:24)
[2016-05-14] MEDS ORDERED: ENOXAPARIN 1 MG/KG SQ SCH (12:00)
[2016-05-14 12:13] VITALS: O2SAT 95
[2016-05-14 12:14] VITALS: BP 143/85; PULSE 69; TEMP 36.6; O2SAT 95
[2016-05-14] MEDS ORDERED: OXYCODONE/ACETAMINOPHEN 5-325 TAB PO PRN (12:30)
--- NOTE | 2016-05-14 12:36 | History and Physical ---
History & Physical Date & Time of Service: May 14, 2016 at 11:28 Chief Complaint: Chest Pain, S/P Surgery Left Shoulder Primary Care Physician: Baljeet De La Cruz M.D.(KASH) History of Present Illness Source: patient This is a 51 y/o male with PMHx of prothrombin II mutation with h/o PEs on chronic anticoagulation and other problems as outlined below who presents to the ED c/o chest pain that began this morning. Pt reports that yesterday morning around 4am he woke up feeling SOB like he "couldn't get enough air." He was feeling better throughout the day however this morning he was woken up again around 0400 feeling short of breath. The SOB felt better when he was sitting up straight and ambulating. Around 0530 patient developed chest pain that he describes as 6/10 chest "tightness" that radiated to his back. Sxs persisted for approx 2 hours. Per attending history, patient's mentioned patient complaining of blurred vision for the past 2 days as well as "feeling off". Pt has a history of prothrombin II mutation and multiple PEs. He is on chronic anticoagulation with Coumadin. Pt had L shoulder surgery 05/10 to remove bone spurs. He was bridged with Lovenox for the procedure. He restarted the Coumadin 4 days ago. Pt denies fever/chills, diaphoresis, palpitations, wheezing , abd pain, N/V, bowel or bladder issues, LE edema, calf pain, lightheadedness/ dizziness. In the ED, vitals are stable. Pt is saturating well on room air. INR 1.8. Trop x 2 negative and EKG no acute ischemic change. CT chest negative for PE and dissection. Chest pain was relieved with morphine upon arrival to the ED. Pt will be admitted for further evaluation and treatment. Past Medical/Surgical History Medical Problems: (1) Shelton esophagus Status: Chronic (2) Pulmonary embolism Status: Resolved Surgical Problems: (1) H/O exploratory laparotomy Status: Resolved (2) H/O shoulder surgery Permanent Comment: remove bone spurs L shoulder 05/10/16 Dr. Gibbs Status: Resolved (3) H/O sinus surgery Status: Resolved (4) H/O umbilical hernia repair Status: Resolved (5) H/O vasectomy Status: Resolved Family History Pulmonary embolism Social History Smoking Status: Never Smoker Smokeless Tobacco Use: 1-2 cans per day for 10 years; quit 05/2015 Drug Use: none Marital Status: Housing status: lives with family Occupational Status: employed Immunizations History of Influenza Vaccine: Yes Influenza Vaccine Date: Dec 21, 2008 History of Tetanus Vaccine?: Unknown History of Pneumococcal: No History of Hepatitis B Vaccine: No Multi-Drug Resistant Organisms History of MDRO: No Allergies Coded Allergies: Latex (Verified Allergy, Intermediate, RASH, 05/14/16) Penicillin V (Verified Adverse Reaction, Intermediate, gi upset, 05/14/16) Clarithromycin (Verified Adverse Reaction, Unknown, DEPRESSION, 05/14/16) Home Medications Scheduled Acetaminophen Tab (Tylenol), 650 MG PO PRN Omeprazole (Prilosec), 40 MG PO DAILY Pramipexole Dihydrochloride (Mirapex), 0.5 MG PO HS Warfarin Sod (Jantoven), 5 MG PO 2XWEEK Warfarin Sod (Jantoven), 7.5 MG PO 5XWEEK Scheduled PRN Oxycodone/Acetaminophen 5MG/325MG (Percocet 5MG/325MG), 1-2 TABLETS PO Q4H PRN for Pain Review of Systems Constitutional: No chills, No fatigue, No fever, No sweats, No weakness Eyes: No worsening of vision Respiratory: + shortness of breath, No cough Cardiovascular: + chest pain, No edema Abdomen: No constipation, No diarrhea, No nausea, No pain, No vomiting Musculoskeletal: No calf pain, No swelling Genitourinary - Male: No dysuria Neurologic: No weakness Psychiatric: No depression symptoms Endocrine: No fatigue Hematologic / Lymphatic: No abnormal bleeding/bruising Integumentary: No new/changing skin lesions Physical Exam Vital Signs Date Time Temp Pulse Resp B/P Pulse Ox O2 Delivery O2 Flow Rate FiO2 05/14/16 10:03 70 18 141/91 93 Room Air 05/14/16 08:45 73 20 154/85 93 Room Air 05/14/16 08:06 68 22 144/82 94 Room Air 05/14/16 07:27 78 05/14/16 07:26 96 Room Air 05/14/16 07:26 95 Room Air 05/14/16 07:14 36.6 72 20 162/96 96 Room Air General Appearance: WD/WN, no apparent distress, + obese, + pertinent finding ( Pt is sitting in bed with at bedside ) Head: normocephalic, atraumatic Eyes: normal inspection ENT: hearing grossly normal Neck: supple Respiratory/Chest: chest non-tender, lungs clear, normal breath sounds, no respiratory distress Abdomen/GI: normal bowel sounds, non tender, soft Back: normal inspection Extremities/Musculoskelatal: normal inspection, no calf tenderness, + swelling (trace swelling to bilat LE), + pertinent finding ([address] over small healing incisions on L shoulder; no erythema or drainage noted) Neurologic/Psych: alert, normal mood/affect, oriented x 3 Skin: normal color, warm/dry Diagnostics Laboratory Results Results Past 24 Hours Test 05/14/16 07:27 05/14/16 07:33 05/14/16 07:35 05/14/16 09:32 Range/Units White Blood Count 5.06 4.8-10.8 K/uL Red Blood Count 5.12 4.7-6.1 M/uL Hemoglobin 15.9 14.0-18.0 g/dL Hematocrit 45.1 42-52 % Mean Corpuscular Volume 88.1 80-100 fL Mean Corpuscular Hemoglobin 31.1 25-34 pg Mean Corpuscular Hemoglobin Concent 35.3 32-36 g/dl Platelet Count 244 130-400 K/uL Mean Platelet Volume 8.8 7.4-10.4 fL Neutrophils (%) (Auto) 50.2 % Lymphocytes (%) (Auto) 34.4 % Monocytes (%) (Auto) 10.1 % Eosinophils (%) (Auto) 4.5 % Basophils (%) (Auto) 0.4 % Neutrophils # (Auto) 2.54 1.4-6.5 K/uL Lymphocytes # (Auto) 1.74 1.2-3.4 K/uL Monocytes # (Auto) 0.51 0.11-0.59 K/uL Eosinophils # (Auto) 0.23 0-0.5 K/uL Basophils # (Auto) 0.02 0-0.2 K/uL RDW Standard Deviation 40.5 36.4-46.3 fL RDW Coefficient of Variation 12.7 11.5-14.5 % Immature Granulocyte % (Auto) 0.4 % Immature Granulocyte # (Auto) 0.02 0.00-0.02 K/uL Prothrombin Time 19.6 9.0-12.0 SECONDS Prothromb Time International Ratio 1.8 0.9-1.1 Activated Partial Thromboplast Time 38.7 21.0-31.0 SECONDS Partial Thromboplastin Ratio 1.5 Sodium Level 137 136-145 mmol/L Potassium Level 4.6 3.5-5.1 mmol/L Chloride Level 102 98-107 mmol/L Carbon Dioxide Level 27 21-32 mmol/L Anion Gap 8.0 17.0 16-25 mmol/L Blood Urea Nitrogen 12 7-18 mg/dl Creatinine 0.75 0.60-1.40 mg/dl Est Creatinine Clear Calc Drug Dose 148.2 ml/min Estimated GFR () 122.2 Estimated GFR (Non- 105.5 BUN/Creatinine Ratio 15.7 10-20 Random Glucose 143 70-99 mg/dl Calcium Level 9.1 8.5-10.1 mg/dl Total Bilirubin 0.4 0.2-1 mg/dl Aspartate Amino Transf (AST/SGOT) 41 15-37 U/L Alanine Aminotransferase (ALT/SGPT) 69 12-78 U/L Alkaline Phosphatase 91 45-117 U/L Total Creatine Kinase 53 39-308 U/L Creatine Kinase MB < 0.5 0.5-3.6 ng/ml Creatine Kinase MB Ratio 0-3.0 Total Protein 7.3 6.4-8.2 gm/dl Albumin 3.2 3.4-5.0 gm/dl Globulin 4.1 2.5-4.0 gm/dl Albumin/Globulin Ratio 0.8 0.9-2 Chemistry Specimen Hemolysis Bedside D-Dimer 299 0-450 ng/mlFEU Bedside Troponin I 0.000 0.000 0-0.045 ng/ml Bedside Hemoglobin 16.3 14.0-18.0 g/dl Bedside Hematocrit 48 42-52 % Bedside Sodium 137 135-144 mEq/L Bedside Potassium 4.3 3.3-5.0 mEq/L Bedside Chloride 99 101-112 mEq/L Bedside Total CO2 26 24-31 mEq/l Bedside Blood Urea Nitrogen 14 7-18 mg/dl Bedside Creatinine 0.7 0.6-1.3 mg/dl Bedside Glucose (other) 151 70-99 mg/dl Bedside Ionized Calcium (Marni) 1.16 1.12-1.32 mmol/l Diagnostic Radiology CXR IMPRESSION: Cardiomegaly. Otherwise negative study CTA CHEST IMPRESSION: No evidence for pulmonary embolus. EKG EKG: NSR at 72 bpm with no acute ischemic changes; no change when compared to EKG from 10/23/15 Impression Assessment and Plan CHEST PAIN/SOB R/O PE VS. ACS pt presented with chest pain assoc with SOB; h/o prothrombin II mutation with multiple PEs -admit observation status to telemetry -RFs include obesity and prior tobacco use -CT chest negative. no evidence of PE or dissection -EKG NSR with no acute ischemic changes; repeat EKG PRN chest pain and in AM -Troponin negative x 2; continue to monitor with serial cardiac enzymes q6h -start ASA -stress echo in AM -hold off on cardiology consult for now -pt is currently chest pain free -continue to monitor VISUAL CHANGES per attending, patient c/o blurred vision and "feeling off" -check CT head to r/o CVA SUBTHERAPEUTIC INR -INR 1.8 -bridge with Lovenox until INR therapeutic -cont Coumadin -monitor INR daily RECENT SHOULDER SURGERY -L shoulder surgery to remove bone spurs performed by Dr. 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 Pt seen in collaboration with Dr. Goetz. Please see her addendum for further details. Thanks! -Pt will be followed by Dr. Adams starting tomorrow AM. I have seen, examined and discussed this patient with Lisa Workman and I agree with the above note. Patient notes feeling "off" for the past 2 days. He woke with an episode of SOB yesterday morning and this morning. He also experienced an episode of chest pain this morning. He notes blurry vision for the past 2 days. He states that he just does not "feel normal". Vitals reviewed. PE: General- awake; alert; NAD Eyes- EOMI; peripheral vision intact; pinpoint pupils ENT- clear OC/OP Neck- large circumference; no stridor Lungs- CTA bilaterally; no wheezes/crackles Heart- RRR; no m/r/g Abdomen- soft; obese; NT; nBS Back- no gross abnormalities Extremities- trace RLE edema; no deformity Neuro- strength 5/5; sensation to light touch slightly diminished on the left per patient; cn ii-xii grossly intact Skin- no appreciable rash or bruising; left shoulder surgical site c/d/i EKG with NSR; no ischemic changes. CT chest normal. CXR normal. Patient presented with episode of SOB and chest pain. SOB - Episode sounded more c/w sleep apnea. Patient does have a h/o this and does not wear his mask. CT chest negative. Patient has a f/u appointment with Pulmonary (Tawnya) in June. Chest pain - Resolved in ED with morphine. Will complete ACS r/o but initial enzymes/EKG normal. Plan for treadmill stress test tomorrow. Prothrombin mutation - Does have h/o PE/DVT. Continue Coumadin. Will bridge with Lovenox given subtherapeutic INR. Given c/o blurry vision, subjective left sided decreased sensation and feeling "not normal", CT head ordered. Anticipate discharge tomorrow. Resuscitation Status FULL RESUSCITATION VTE Prophylaxis VTE Risk Assessment Done? Y/N: Yes Risk Level: Moderate Given or contraindicated: Warfarin (Coumadin)
--- NOTE | 2016-05-14 13:52 | DIAGNOSTIC IMAGING REPORT ---
HEAD CT NONCONTRAST CT DOSE: 537.48 mGy.cm HISTORY: Mental status change visual changes r/o CVA TECHNIQUE: Multiaxial CT images of the head were performed without the use of intravenous contrast. Comparison: 03/13/2016 Findings: Moderate mucosal thickening of the ethmoid and sphenoid sinuses. Improved left periorbital cellulitis. The calvarium and skull base are intact. The ventricles and sulci are within normal limits. There is no mass, hematoma, midline shift, or acute infarct. Impression: No acute intracranial abnormality. Improved left periorbital cellulitis Electronically signed by: Al Bloom M.D. 05/14/2016 1:51 PM Dictated Date/Time: 05/14/2016 1:49 PM
[2016-05-14] MEDS ORDERED: IV FLUIDS COMPLETED PRN (14:00)
[2016-05-14 15:25] VITALS: BP 169/93; PULSE 74; TEMP 36.7; O2SAT 96
[2016-05-14] MEDS ORDERED: WARFARIN SOD 7.5 MG TAB PO SCH (16:00)
[2016-05-14 18:46] VITALS: BP 133/79; PULSE 69; TEMP 36.7; O2SAT 96
[2016-05-14] MEDS: ACETAMINOPHEN 325 MG TAB PO PRN (19:56)
[2016-05-14] MEDS ORDERED: PRAMIPEXOLE DIHYDROCHLORIDE 0.5 MG TAB PO SCH (21:00)
[2016-05-14 22:08] LABS: MANUAL MICROSCOPIC REQUIRED? NO; REVIEW REQ? NO; URINE APPEARANCE CLEAR (CLEAR); URINE BILIRUBIN NEG (NEG); URINE COLOR YELLOW; URINE NITRITE NEG (NEG); URINE PH 6.5 (4.5-7.5); UROBILINOGEN NEG (NEG)
[2016-05-14 23:53] VITALS: BP 125/80; PULSE 73; TEMP 36.8; O2SAT 96
[2016-05-15 04:05] VITALS: BP 128/72; PULSE 73; TEMP 36.8; O2SAT 94
[2016-05-15] MEDS: ACETAMINOPHEN 325 MG TAB PO PRN ×2 (05:19→11:41)
[2016-05-15 05:42] LABS: HEMATOCRIT 43.5 % (42-52); MEAN CELL VOLUME 88.8 fL (80-100); MEAN CORPUSCULAR HEMOGLOBIN 30.6 pg (25-34); MEAN CORPUSCULAR HGB CONC 34.5 g/dl (32-36); PLATELET COUNT 223 K/uL (130-400)
[2016-05-15 05:51] LABS: INR 1.9 (0.9-1.1); PROTHROMBIN TIME (PATIENT) 20.7 SECONDS (9.0-12.0)
[2016-05-15 06:10] LABS: BUN/CREATININE RATIO 16.7 (10-20); CALCIUM 8.8 mg/dl (8.5-10.1); CREATININE 0.78 mg/dl (0.60-1.40); POTASSIUM 4.2 mmol/L (3.5-5.1)
[2016-05-15 07:34] VITALS: BP 158/82; PULSE 74; TEMP 36.8; O2SAT 94
[2016-05-15] MEDS: ENOXAPARIN 120 MG/0.8 ML SYR SQ SCH (08:14)
[2016-05-15] MEDS ORDERED: ASPIRIN 81 MG ECTAB PO SCH (09:00)
[2016-05-15] MEDS ORDERED: PANTOprazole SOD 40 MG TAB PO SCH (09:00)
[2016-05-15] MEDS ORDERED: METOPROLOL TARTRATE 1 MG/ML VIAL ONE (09:50)
[2016-05-15] MEDS ORDERED: ATROPINE SULFATE 0.1 MG/ML 5ML SYR ONE (09:50)
[2016-05-15] MEDS ORDERED: DOBUTamine HCL 12.5 MG/ML 20 ML VIAL ONE (09:50)
[2016-05-15 10:59] VITALS: BP 116/77; PULSE 75; TEMP 37.1; O2SAT 90
[2016-05-15] MEDS ORDERED: PERFLUTREN LIPID MICROSPHERE (DEFINITY) IV ONE (11:47)
--- NOTE | 2016-05-15 13:10 | DOBUTAMINE ECHO ---
*NOTICE TO RECEIVING DEMOCRAT AGENCY This information is strictly Confidential and protected under [place] law. [place] law prohibits you from making any further disclosure of this information unless further disclosure is expressly permitted by the written consent of the person to whom it pertains or is authorized by law. A general authorization for the release of medical or other information is not sufficient for this purpose. Hospital accepts no responsibility if the information is made available to any other person, INCLUDING THE PATIENT. Interpretation Summary * Name: MENDY SALEEM JR Study Date: 05/15/2016 09:12 AM BP: 118/85 mmHg * Patient Location: [facility] HR: 77 * : 1965 (M/d/yyyy) Gender: Male Height: 68 in * Age: 51 yrs Ethnicity: CA Weight: 275 lb * Ordering Physician: Edwige Adams DO * Performed By: Ariana Gleason RDCS * * Reason For Study: Chest pain * BSA: 2.3 m2 * -- Conclusions -- * Nonischemic dobutamine stress echocardiogram. * No arrhythmias. * Normal HR and BP response to dobutamine infusion. * At rest, normal LV chamber size and wall thickness. * Normal LV systolic function, EF 55-60%. * No segmental left ventricular wall motion abnormalities are noted. * Grade II diastolic dysfunction. * No significant valvular pathology. Procedure Details * DOBUTAMINE ECHO, CPT#99362 * ECHO DOPPLER, CPT #94295 * ECHO COLOR FLOW, CPT #60943 * A contrast injection of Definity was performed to improve assessment of LV function. * Contrast was injected into an intravenous site in the right arm. * One vial of Definity ultrasound contrast was diluted in normal saline to a total volume of 10 ml. A total of '4.5' ml of solution was administered during imaging. * Lot # [id number] of Definity utilized for procedure. * Expiration date MAR 20. * The attending nurse who injected the contrast agent was Marija Rucker RN. Left Ventricle * The left ventricle is normal in size. * There is normal left ventricular wall thickness. * Ejection Fraction = 55-60%. * Left ventricular systolic function is normal. * No segmental left ventricular wall motion abnormalities are noted. * Resting wall motion: Normal. Stress wall motion: Appropriate increase in Left ventricular systolic function and decrease in cavity size. No stress induced segmental wall motion abnormalities. Right Ventricle * The right ventricular cavity size is normal (basal dimension <4.2 cm in right ventricular apical 4-chamber view). * The right ventricular systolic function is normal as assessed by tricuspid annular plane systolic excursion (TAPSE) (normal >1.5 cm). Atria * The left atrial size is normal. * Right atrial size is normal. * No ASD detected; PFO is not assessed. Mitral Valve * The mitral valve is normal in structure and function. Tricuspid Valve * The tricuspid valve is normal in structure and function. Aortic Valve * The aortic valve is not well visualized. * No hemodynamically significant valvular aortic stenosis. * There is no significant aortic regurgitation. Pulmonic Valve * The pulmonary valve is not well seen, but the Doppler examination is normal without significant regurgitation or stenosis. Great Vessels * The aortic root and proximal ascending aorta are normal sized. Pericardium * There is no pericardial effusion. Stress Parameters * Normal baseline electrocardiogram. * Stress ECG: No ST changes. No arrhythmias. * No arrhythmia were noted with stress. * The stress portion of this study was personally supervised by the undersigned interpreting physician. * Rest heart rate was '77' BPM. * Rest blood pressure was '118/85' * Maximum heart rate achieved was 155 bpm. * Maximum heart rate was 92 % of maximum age-predicted heart rate. * Maximum blood pressure was '181/55' * Maximum Dobutamine infusion rate was '50' mcg/kg/min. * A total of 1 mg of intravenous Atropine was used to supplement Dobutamine for heart rate response. * Dobutamine infusion was terminated due to achieving target heart rate * A total of 10 mg of IV Metoprolol was administered to reverse Dobutamine-induced tachycardia. * The patient did not exhibit any symptoms during drug infusion. Left Ventricular Diastolic Function * Diastolic dysfunction, Grade II (pseudonormalization pattern). MMode 2D Measurements and Calculations IVSd 0.96 cm LVIDd 5.0 cm LVIDs 3.5 cm LVPWd 1.2 cm IVS/LVPW 0.77 FS 29.9 % EDV(Teich) 118.6 ml ESV(Teich) 51.2 ml EF(Teich) 56.8 % EDV(cubed) 125.5 ml ESV(cubed) 43.2 ml EF(cubed) 65.6 % LV mass(C)d 208.4 grams LV mass(C)dI 89.1 grams/m\S\2 SV(Teich) 67.4 ml SI(Teich) 28.8 ml/m\S\2 SV(cubed) 82.3 ml SI(cubed) 35.1 ml/m\S\2 Ao root diam 2.9 cm Ao root area 6.8 cm\S\2 ACS 1.7 cm LA dimension 2.8 cm asc Aorta Diam 2.9 cm LA/Ao 0.97 LVOT diam 2.0 cm LVOT area 3.3 cm\S\2 LVAd ap4 31.0 cm\S\2 LVLd ap4 7.6 cm EDV(MOD-sp4) 103.6 ml EDV(sp4-el) 107.6 ml LVAs ap4 18.4 cm\S\2 LVLs ap4 6.3 cm ESV(MOD-sp4) 44.6 ml ESV(sp4-el) 45.2 ml EF(MOD-sp4) 57.0 % EF(sp4-el) 58.0 % LVAd ap2 27.7 cm\S\2 LVLd ap2 7.4 cm EDV(MOD-sp2) 85.8 ml EDV(sp2-el) 87.9 ml LVAs ap2 16.5 cm\S\2 LVLs ap2 6.2 cm ESV(MOD-sp2) 35.6 ml ESV(sp2-el) 37.2 ml EF(MOD-sp2) 58.5 % EF(sp2-el) 57.7 % LVLd %diff -2.74 % EDV(MOD-bp) 94.3 ml LVLs %diff -1.54 % ESV(MOD-bp) 40.3 ml EF(MOD-bp) 57.3 % SV(MOD-sp4) 59.0 ml SI(MOD-sp4) 25.2 ml/m\S\2 SV(MOD-sp2) 50.2 ml SI(MOD-sp2) 21.4 ml/m\S\2 SV(MOD-bp) 54.0 ml SI(MOD-bp) 23.1 ml/m\S\2 SV(sp4-el) 62.4 ml SI(sp4-el) 26.7 ml/m\S\2 SV(sp2-el) 50.7 ml SI(sp2-el) 21.7 ml/m\S\2 Doppler Measurements and Calculations MV E max jad 65.8 cm/sec MV A max jad 55.4 cm/sec MV E/A 1.2 MV dec time 0.23 sec Ao V2 max 126.3 cm/sec Ao max PG 6.4 mmHg Ao max PG (full) 4.8 mmHg Ao V2 mean 87.3 cm/sec Ao mean PG 3.5 mmHg Ao V2 VTI 22.2 cm MYKEL(V,A) 1.6 cm\S\2 MYKEL(V,D) 1.6 cm\S\2 LV V1 max PG 1.5 mmHg LV V1 max 61.8 cm/sec SV(Ao) 150.9 ml SI(Ao) 64.5 ml/m\S\2 PA V2 max 61.9 cm/sec PA max PG 1.5 mmHg PA acc slope 388.2 cm/sec\S\2 PA acc time 0.13 sec PA pr(Accel) 22.8 mmHg
--- NOTE | 2016-05-15 15:26 | Progress Note ---
Subjective Date of Service: May 15, 2016. Subjective Pt evaluation today including: conversation w/ patient, conversation w/ family , physical exam, lab review, review of studies, conversation w/ instructional design consultant, review of inpatient medication list Saw/examined the patient in room 229 He presented with some chest pain stress test was performed today and negative - other w/up negative no other problems/issues to note Problem List Medical Problems: (1) Abscess of left periorbital region Status: Acute (2) DVT (deep venous thrombosis) Status: Acute (3) Left sided chest pain Status: Acute (4) Periorbital cellulitis of left eye Status: Acute (5) Right groin pain Status: Acute Review of Systems Constitutional: No chills, No fever Respiratory: No cough, No dyspnea at rest, No dyspnea on exertion, No hemoptysis, No shortness of breath, No sputum, No wheezing Cardiac: No chest pain, No edema, No palpitations Abdomen: No diarrhea, No nausea, No pain, No vomiting Medications Current Inpatient Medications Medications (Trade) Dose Ordered Sig/Sarah Route Start Time Stop Time Status Last Admin Dose Admin Ioversol (Optiray 320) 100 ml UD PRN IV 05/14/16 07:45 05/18/16 07:44 Acetaminophen (Tylenol Tab) 650 mg Q4H PRN PO 05/14/16 11:15 06/13/16 11:14 05/15/16 11:41 650 MG Ondansetron HCl (Zofran Inj) 4 mg Q6H PRN IV 05/14/16 11:15 06/13/16 11:14 Nitroglycerin (Nitrostat Tab) 0.4 mg UD PRN SL 05/14/16 11:15 06/13/16 11:14 Aspirin (Ecotrin Tab) 81 mg QAM PO 05/15/16 09:00 06/14/16 08:59 05/15/16 08:14 81 MG Enoxaparin Sodium (Lovenox Inj) 120 mg Q12 SQ 05/14/16 12:00 06/13/16 11:59 05/15/16 08:14 120 MG Oxycodone/ Acetaminophen (Percocet 5-325mg Tab) 1 tab Q6 PRN PO 05/14/16 12:30 05/28/16 12:29 05/14/16 15:11 1 TAB Pramipexole Dihydrochloride (miraPEX TAB) 0.5 mg HS PO 05/14/16 21:00 06/13/16 20:59 05/14/16 19:54 0.5 MG Warfarin Sodium (Coumadin Tab) 5 mg SuTh@1600 PO 05/16/16 16:00 06/15/16 15:59 Warfarin Sodium (Coumadin Tab) 7.5 mg MoTuWeFrSa@1600 PO 05/14/16 16:00 06/13/16 15:59 05/14/16 19:55 7.5 MG Pantoprazole Sodium (Protonix Tab) 40 mg QAM PO 05/15/16 09:00 06/14/16 08:59 05/15/16 08:14 40 MG Miscellaneous (Iv Fluids Completed) 1 ea PRN PRN N/A 05/14/16 14:00 05/14/17 13:59 Objective Vital Signs Date Time Temp Pulse Resp B/P Pulse Ox O2 Delivery O2 Flow Rate FiO2 05/15/16 11:30 Room Air 05/15/16 07:34 36.8 74 18 158/82 94 Room Air 05/15/16 07:30 Room Air 05/15/16 04:05 36.8 73 18 128/72 94 Room Air 05/15/16 04:00 Room Air 05/15/16 00:01 Room Air 05/14/16 23:53 36.8 73 20 125/80 96 Room Air 05/14/16 20:00 Room Air 05/14/16 18:46 36.7 69 16 133/79 96 Room Air 05/14/16 16:00 Room Air 05/14/16 15:25 36.7 74 16 169/93 96 Room Air Physical Exam General Appearance: no apparent distress, + obese Respiratory/Chest: lungs clear, normal breath sounds, no respiratory distress, no accessory muscle use Cardiovascular: regular rate, rhythm, no edema, no murmur Abdomen: normal bowel sounds, non tender, soft Extremities: normal inspection, no pedal edema Laboratory Results Last 24 Hours Test 05/14/16 15:30 05/14/16 15:31 05/14/16 21:27 05/14/16 21:51 Creatine Kinase MB Ratio Creatine Kinase MB < 0.5 ng/ml < 0.5 ng/ml Troponin I < 0.015 ng/ml < 0.015 ng/ml Urine Color YELLOW Urine Appearance CLEAR Urine pH 6.5 Urine Specific [place] 1.020 Urine Protein NEG Urine Glucose (UA) NEG Urine Ketones NEG Urine Occult Blood NEG Urine Nitrite NEG Urine Bilirubin NEG Urine Urobilinogen NEG Urine Leukocyte Esterase NEG Test 05/15/16 05:03 White Blood Count 5.20 K/uL Red Blood Count 4.90 M/uL Hemoglobin 15.0 g/dL Hematocrit 43.5 % Mean Corpuscular Volume 88.8 fL Mean Corpuscular Hemoglobin 30.6 pg Mean Corpuscular Hemoglobin Concent 34.5 g/dl RDW Standard Deviation 41.9 fL RDW Coefficient of Variation 12.8 % Platelet Count 223 K/uL Mean Platelet Volume 9.0 fL Prothrombin Time 20.7 SECONDS Prothromb Time International Ratio 1.9 Sodium Level 136 mmol/L Potassium Level 4.2 mmol/L Chloride Level 101 mmol/L Carbon Dioxide Level 27 mmol/L Anion Gap 8.0 mmol/L Blood Urea Nitrogen 13 mg/dl Creatinine 0.78 mg/dl Est Creatinine Clear Calc Drug Dose 141.9 ml/min Estimated GFR () 120.3 Estimated GFR (Non- 103.8 BUN/Creatinine Ratio 16.7 Random Glucose 134 mg/dl Calcium Level 8.8 mg/dl Assessment and Plan This is a 51 year old male with PMH of prothrombin II mutation with history of PEs and chronic anticoagulation use presents with chest pain Chest Pain r/o ACS patient presented with chest pain concerning for PE Chest CT - negative for PE Lovenox to Coumadin bridge dobutamine stress performed and negative clinically patient feels better labs and vitals look fine will d/c patient home outpatient Coumadin clinic follow-up DVT ppx Lovenox --> Coumadin FULL CODE
--- NOTE | 2016-05-15 15:28 | Discharge Instructions ---
Discharge Instructions Date of Service May 15, 2016. Admission Reason for Admission: Left Sided Chest Pain Discharge Discharge Diagnosis / Problem: Chest Pain - ACS ruled out Discharge Goals Goal(s): Decrease discomfort, Improve function Activity Recommendations Activity Limitations: resume your previous activity . Instructions / Follow-Up Instructions / Follow-Up Please follow-up with Dr. De La Cruz on May 21 @ 1:00PM * Take an 7.5mg of Coumadin on , 05/16 - follow-up with Coumadin clinic to recheck INR Current Hospital Diet Patient's current hospital diet: Regular Diet Discharge Diet Recommended Diet: Regular Diet Pending Studies Studies pending at discharge: no Medical Emergencies . Who to Call and When: Medical Emergencies: If at any time you feel your situation is an emergency, please call 911 immediately. . Non-Emergent Contact Non-Emergency issues call your: Primary Care Provider . . "Provider Documentation" section prepared by Edwige Adams. VTE Core Measure Inpt VTE Proph given/why not?: Warfarin (Coumadin)
[2016-05-15 15:29] VITALS: BP 158/82; PULSE 74; TEMP 36.8; O2SAT 94
--- NOTE | 2016-05-15 15:30 | Discharge Summary ---
Discharge Summary Date of Service May 15, 2016. Discharge Summary Admission Date: May 14, 2016 at 11:18 Discharge Date: May 15, 2016 Discharge Disposition: Home Principal Diagnosis: Chest Pain - ACS ruled out, no acute PE Medication Reconciliation Continued Medications: Acetaminophen Tab (Tylenol) 325 Mg Tab 650 MG PO PRN, TAB Omeprazole (Prilosec) 20 Mg Cap 40 MG PO DAILY, CAP Oxycodone/Acetaminophen 5MG/325MG (Percocet 5MG/325MG) Tab 1-2 TABLETS PO Q4H PRN for Pain, #60 TAB Pramipexole Dihydrochloride (Mirapex) 0.25 Mg Tab 0.5 MG PO HS, TAB Warfarin Sod (Jantoven) 5 Mg Tab 5 MG PO 2XWEEK, TAB ,FRIDAYT Warfarin Sod (Jantoven) 7.5 Mg Tab 7.5 MG PO 5XWEEK, TAB Friday Admission Information HPI (per Admitting provider): This is a 51 y/o male with PMHx of prothrombin II mutation with h/o PEs on chronic anticoagulation and other problems as outlined below who presents to the ED c/o chest pain that began this morning. Pt reports that yesterday morning around 4am he woke up feeling SOB like he "couldn't get enough air." He was feeling better throughout the day however this morning he was woken up again around 0400 feeling short of breath. The SOB felt better when he was sitting up straight and ambulating. Around 0530 patient developed chest pain that he describes as 6/10 chest "tightness" that radiated to his back. Sxs persisted for approx 2 hours. Per attending history, patient's mentioned patient complaining of blurred vision for the past 2 days as well as "feeling off". Pt has a history of prothrombin II mutation and multiple PEs. He is on chronic anticoagulation with Coumadin. Pt had L shoulder surgery 05/10 to remove bone spurs. He was bridged with Lovenox for the procedure. He restarted the Coumadin 4 days ago. Pt denies fever/chills, diaphoresis, palpitations, wheezing , abd pain, N/V, bowel or bladder issues, LE edema, calf pain, lightheadedness/ dizziness. In the ED, vitals are stable. Pt is saturating well on room air. INR 1.8. Trop x 2 negative and EKG no acute ischemic change. CT chest negative for PE and dissection. Chest pain was relieved with morphine upon arrival to the ED. Pt will be admitted for further evaluation and treatment. Physical Exam (per Admitting): General Appearance: WD/WN, no apparent distress, + obese, + pertinent finding (Pt is sitting in bed with at bedside ) Head: normocephalic, atraumatic Eyes: normal inspection ENT: hearing grossly normal Neck: supple Respiratory/Chest: chest non-tender, lungs clear, normal breath sounds, no respiratory distress Abdomen/GI: normal bowel sounds, non tender, soft Back: normal inspection Extremities/Musculoskelatal: normal inspection, no calf tenderness, + swelling (trace swelling to bilat LE), + pertinent finding ([address] over small healing incisions on L shoulder; no erythema or drainage noted) Neurologic/Psych: alert, normal mood/affect, oriented x 3 Skin: normal color, warm/dry Hospital Course This is a 51 year old male with PMH of prothrombin II mutation with history of PEs and chronic anticoagulation use presents with chest pain Chest Pain r/o ACS patient presented with chest pain concerning for PE Chest CT - negative for PE Lovenox to Coumadin bridge dobutamine stress performed and negative clinically patient feels better labs and vitals look fine will d/c patient home outpatient Coumadin clinic follow-up DVT ppx Lovenox --> Coumadin FULL CODE Total time spent on discharge = 25 minutes This includes examination of the patient, discharge planning, medication reconciliation, and communication with other providers. Discharge Instructions Please follow-up with Dr. De La Cruz on May 21 @ 1:00PM * Take an 7.5mg of Coumadin on , 05/16 - follow-up with Coumadin clinic to recheck INR
[2016-05-16] MEDS ORDERED: WARFARIN SOD 5 MG TAB PO SCH (16:00)
== END 2016-05-15 15:39 | disposition home or self-care (01) ==
LOC: ENRESERVTM → ENRESERVDT → C.EDB 07:14 → UNDOADMOB 11:18 → C.2T 11:18
PROVIDERS: ADMIT Internal Medicine; ATTEND Family Medicine
DX: R07.9 Chest pain, unspecified (principal); D68.52 Prothrombin gene mutation; H53.9 Unspecified visual disturbance; E66.9 Obesity, unspecified; K21.9 Gastro-esophageal reflux disease without esophagitis; R79.1 Abnormal coagulation profile; G47.33 Obstructive sleep apnea (adult) (pediatric); Z85.528 Personal history of other malignant neoplasm of kidney; Z79.01 Long term (current) use of anticoagulants; Z86.711 Personal history of pulmonary embolism; Z88.0 Allergy status to penicillin; Z87.891 Personal history of nicotine dependence; Z91.040 Latex allergy status

== ENCOUNTER 2016-10-22 16:50 | Emergency (ER) | payer OTHER ==
[~2016-10-22] VITALS: Ht 172.7 cm; Wt 126.0 kg
[~2016-10-22 16:50] MED LIST changes: -ENOX120I SQ; +OMEP20CA9 PO
[2016-10-22 16:57] VITALS: BP 149/91; PULSE 78; TEMP 36.7; O2SAT 97; Ht 172.7 cm; Wt 126.0 kg
== END 2016-10-22 17:55 | disposition left against medical advice (07) ==
LOC: C.EDB 16:51
DX: R06.02 Shortness of breath (principal)

== ENCOUNTER 2017-03-02 23:26 | Emergency (ER) | payer OTHER ==
[~2017-03-02] VITALS: Ht 172.7 cm; Wt 113.4 kg
[~2017-03-02 23:26] MED LIST changes: +ACET-1693 PO; -ACET325T96 PO; -OXYC-57 PO
[2017-03-02 23:45] VITALS: TEMP 36.9; Ht 172.7 cm; Wt 113.4 kg
[2017-03-02] MEDS ORDERED: SODIUM CHLORIDE 0.9% 1000ML 1,000 ML IV STA (23:50)
[2017-03-02] MEDS ORDERED: ACETAMINOPHEN 500 MG TAB PO STA (23:50)
[2017-03-03] MEDS ORDERED: ALBUT/IPRATROP 3MG/0.5MG NEB 3 ML VIAL INH ONE
[2017-03-03] MEDS ORDERED: ONDANSETRON INJ 2 MG/ML 2 ML VIAL IV STA (00:11)
[2017-03-03 00:21] VITALS: PULSE 85; O2SAT 96
[2017-03-03 00:37] LABS: BASO % 0.4 %; BASO ABS # 0.03 K/uL (0-0.2); EOS % 2.2 %; EOS ABS # 0.15 K/uL (0-0.5); HEMATOCRIT 45.2 % (42-52); HEMOGLOBIN 15.6 g/dL (14.0-18.0); IG# 0.01 K/uL (0.00-0.02); LYMPH % 12.9 %; MEAN CELL VOLUME 89.3 fL (80-100); MEAN CORPUSCULAR HEMOGLOBIN 30.8 pg (25-34); MEAN CORPUSCULAR HGB CONC 34.5 g/dl (32-36); MEAN PLATELET VOLUME 8.8 fL (7.4-10.4); MONO % 10.4 %; MONO ABS # 0.72 K/uL (0.11-0.59); NEUT ABS # 5.14 K/uL (1.4-6.5); PLATELET COUNT 203 K/uL (130-400); RED CELL DISTRIBUTION WIDTH CV 12.7 % (11.5-14.5); RED CELL DISTRIBUTION WIDTH SD 41.2 fL (36.4-46.3); WHITE BLOOD COUNT 6.95 K/uL (4.8-10.8)
[2017-03-03 00:50] LABS: INR 2.3 (0.9-1.1)
[2017-03-03 00:58] LABS: ALBUMIN 3.4 gm/dl (3.4-5.0); ALT/SGPT 61 U/L (12-78); AST/SGOT 33 U/L (15-37); BLOOD UREA NITROGEN 11 mg/dl (7-18); CALCIUM 9.1 mg/dl (8.5-10.1); CARBON DIOXIDE 27 mmol/L (21-32); CREATININE 0.86 mg/dl (0.60-1.40); GLUCOSE 120 mg/dl (70-99); LIPASE 223 U/L (73-393); SODIUM 135 mmol/L (136-145)
[2017-03-03 01:03] LABS: ALKALINE PHOSPHATASE 95 U/L (45-117); TOTAL PROTEIN 7.9 gm/dl (6.4-8.2)
[2017-03-03] MEDS ORDERED: FAMOTIDINE 20MG/5ML IV PUSH IV STA (01:36)
[2017-03-03] MEDS ORDERED: LEVOFLOXACIN 250 MG TAB PO STA (01:36)
[2017-03-03] MEDS ORDERED: METOCLOPRAMIDE HCL INJ 5 MG/ML 2 ML VIAL IV STA (01:36)
[2017-03-03] MEDS ORDERED: LEVO-18 PO (01:51)
[2017-03-03] MEDS ORDERED: PRED20TA PO (01:51)
--- NOTE | 2017-03-03 01:52 | EMERGENCY ROOM VISIT NOTE ---
History Report prepared by Ruthie: Diogenes Tan Under the Supervision of: Dr. Angelito Dawn M.D. First contact with patient: 23:47 Chief Complaint: SHORTNESS OF BREATH Stated Complaint: SOB, WHEEZING, COUGHING, NAUSEA History of Present Illness The patient is a 52 year old male who presents to the Emergency Room with complaints of a persistent cough beginning this week. The patient also complains of shortness of breath, chills, chest pain with coughing, headache, and nausea beginning today. He states that he developed a sore throat last night. He denies any fevers, or diarrhea. The patient was seen by his PCP last week and was diagnosed with a sinus infection for which he was started on antibiotics. He stopped taking his antibiotics this week before. The patient has a history of Factor V with PE x3, and restrictive lung disease. Source of History: patient Onset: This week Quality: other (cough) Timing: other (persistent) Associated Symptoms: + chills, + headache, + sorethroat, + chest pain (with coughing), + SOB, No fevers, No diarrhea Review of Systems See HPI for pertinent positives and negatives. A total of ten systems were reviewed and were otherwise negative. Past Medical & Surgical Medical Problems: (1) Shelton esophagus (2) Pulmonary embolism Surgical Problems: (1) H/O exploratory laparotomy (2) H/O shoulder surgery (3) H/O sinus surgery (4) H/O umbilical hernia repair (5) H/O vasectomy Family History Pulmonary embolism Social History Smoking Status: Never Smoker Drug Use: none Marital Status: Housing Status: lives with family Occupation Status: employed Current/Historical Medications Scheduled Levofloxacin (Levaquin), 750 MG PO DAILY Pramipexole Dihydrochloride (Mirapex), 0.5 MG PO HS Prednisone (Prednisone), 3 TAB PO DAILY Warfarin Sod (Jantoven), 5 MG PO 2XWEEK Warfarin Sod (Jantoven), 7.5 MG PO 5XWEEK Allergies Coded Allergies: Latex (Verified Allergy, Intermediate, RASH, 03/03/17) Penicillin V (Verified Adverse Reaction, Intermediate, gi upset, 03/03/17) Clarithromycin (Verified Adverse Reaction, Unknown, DEPRESSION, 03/03/17) Physical Exam Vital Signs Date Time Temp Pulse Resp B/P (MAP) Pulse Ox O2 Delivery O2 Flow Rate FiO2 03/03/17 02:18 116 18 102/66 95 03/03/17 01:46 124 26 93 03/03/17 01:31 120 24 111/70 94 03/03/17 01:16 122 23 100 03/03/17 01:01 112 35 100 03/03/17 01:00 143/92 03/03/17 00:46 98 26 100 03/03/17 00:41 96 25 100 Nebulizer 03/03/17 00:30 131/79 03/03/17 00:26 89 17 100 03/03/17 00:21 85 23 96 Room Air 03/03/17 00:11 93 18 96 Room Air 03/03/17 00:10 90 03/03/17 00:03 121/77 03/02/17 23:45 36.9 96 18 137/85 97 Room Air Physical Exam GENERAL: Awake, alert, well-appearing, in no distress HENT: Normocephalic, atraumatic. Oropharynx unremarkable. EYES: Normal conjunctiva. Sclera non-icteric. NECK: Supple. No nuchal rigidity. FROM. No JVD. RESPIRATORY: Scant scattered wheezes. CARDIAC: Regular rate, normal rhythm. Extremities warm and well perfused. Pulses equal. ABDOMEN: Soft, non-distended. No tenderness to palpation. No rebound or guarding. No masses. RECTAL: Deferred. MUSCULOSKELETAL: Chest examination reveals no tenderness. The back is symmetrical on inspection without obvious abnormality. There is no CVA tenderness to palpation. No joint edema. LOWER EXTREMITIES: Calves are equal size bilaterally and non-tender. No edema. No discoloration. NEURO: Normal sensorium. No sensory or motor deficits noted. SKIN: No rash or jaundice noted. Medical Decision & Procedures ER Provider Diagnostic Interpretation: One View Chest X-ray interpreted by me: Peribronchial thickening. No gross infiltrates. Laboratory Results 03/03/17 00:25 Red Blood Count 5.06, Mean Corpuscular Volume 89.3, Mean Corpuscular Hemoglobin 30.8, Mean Corpuscular Hemoglobin Concent 34.5, Mean Platelet Volume 8.8, Neutrophils (%) (Auto) 74.0, Lymphocytes (%) (Auto) 12.9, Monocytes (%) (Auto) 10.4, Eosinophils (%) (Auto) 2.2, Basophils (%) (Auto) 0.4, Neutrophils # (Auto ) 5.14, Lymphocytes # (Auto) 0.90, Monocytes # (Auto) 0.72, Eosinophils # (Auto ) 0.15, Basophils # (Auto) 0.03 03/03/17 00:25 Test 03/03/17 00:25 White Blood Count 6.95 K/uL (4.8-10.8) Red Blood Count 5.06 M/uL (4.7-6.1) Hemoglobin 15.6 g/dL (14.0-18.0) Hematocrit 45.2 % (42-52) Mean Corpuscular Volume 89.3 fL (80-100) Mean Corpuscular Hemoglobin 30.8 pg (25-34) Mean Corpuscular Hemoglobin Concent 34.5 g/dl (32-36) Platelet Count 203 K/uL (130-400) Mean Platelet Volume 8.8 fL (7.4-10.4) Neutrophils (%) (Auto) 74.0 % Lymphocytes (%) (Auto) 12.9 % Monocytes (%) (Auto) 10.4 % Eosinophils (%) (Auto) 2.2 % Basophils (%) (Auto) 0.4 % Neutrophils # (Auto) 5.14 K/uL (1.4-6.5) Lymphocytes # (Auto) 0.90 K/uL (1.2-3.4) Monocytes # (Auto) 0.72 K/uL (0.11-0.59) Eosinophils # (Auto) 0.15 K/uL (0-0.5) Basophils # (Auto) 0.03 K/uL (0-0.2) RDW Standard Deviation 41.2 fL (36.4-46.3) RDW Coefficient of Variation 12.7 % (11.5-14.5) Immature Granulocyte % (Auto) 0.1 % Immature Granulocyte # (Auto) 0.01 K/uL (0.00-0.02) Prothrombin Time 23.8 SECONDS (9.0-12.0) Prothromb Time International Ratio 2.3 (0.9-1.1) Anion Gap 7.0 mmol/L (3-11) Est Creatinine Clear Calc Drug Dose 121.4 ml/min Estimated GFR () 114.7 Estimated GFR (Non- 99.0 BUN/Creatinine Ratio 12.7 (10-20) Calcium Level 9.1 mg/dl (8.5-10.1) Total Bilirubin 0.7 mg/dl (0.2-1) Direct Bilirubin 0.1 mg/dl (0-0.2) Aspartate Amino Transf (AST/SGOT) 33 U/L (15-37) Alanine Aminotransferase (ALT/SGPT) 61 U/L (12-78) Alkaline Phosphatase 95 U/L (45-117) Troponin I < 0.015 ng/ml (0-0.045) Total Protein 7.9 gm/dl (6.4-8.2) Albumin 3.4 gm/dl (3.4-5.0) Lipase 223 U/L (73-393) Laboratory results reviewed by me Medications Administered Medications (Trade) Dose Ordered Sig/Sarah Route Start Time Stop Time Status Last Admin Dose Admin Sodium Chloride 1,000 ml @ 999 mls/hr Q1H1M STAT IV 03/02/17 23:50 03/03/17 00:50 DC 03/03/17 00:24 999 MLS/HR Acetaminophen (Tylenol Tab) 1,000 mg NOW STAT PO 03/02/17 23:50 03/02/17 23:56 DC 03/03/17 00:04 1,000 MG Albuterol/ Ipratropium (Duoneb) 12 ml ONE ONCE INH 03/03/17 00:00 03/03/17 00:01 DC 03/03/17 00:18 12 ML Prednisone (PredniSONE TAB) 60 mg NOW STAT PO 03/02/17 23:50 03/02/17 23:56 DC 03/03/17 00:04 60 MG Ondansetron HCl (Zofran Inj) 4 mg NOW STAT IV 03/03/17 00:11 03/03/17 00:12 DC 03/03/17 00:51 4 MG Metoclopramide HCl (Reglan Inj) 10 mg NOW STAT IV 03/03/17 01:36 03/03/17 01:39 DC 03/03/17 01:55 10 MG Famotidine (Pepcid 20mg Iv Push) 20 mg NOW STAT IV 03/03/17 01:36 03/03/17 01:39 DC 03/03/17 01:51 20 MG Levofloxacin (Levaquin Tab) 750 mg NOW STAT PO 03/03/17 01:36 03/03/17 01:39 DC 03/03/17 01:49 750 MG ECG Indication: SOB/dyspnea Rate (beats per minute): 86 Rhythm: normal sinus Findings: no acute ischemic change, other (Normal axis. ) ED Course 2350: The patient was evaluated in room B11B. A complete history and physical exam was performed. 0145: I reevaluated the patient. Discussed results and discharge instructions: he verbalized understanding and agreement. The patient is ready for discharge. Medical Decision I reviewed the patient's past medical history, medications, and the nursing notes as described above. The patient's presentation and history were concerning for URI, bronchitis, pneumonia, restrictive lung disease, ACS, and CHF. The patient is a 52 yo gentleman with a pmhx of restrictive lung disease and factor V leiden who presents to the ED with persistent cough and congestion for the past week per HPI. ON arrival the patient is in NAD, AFVSS. Of note, patieint was being treated by pcp for sinusiis with augmentin and had felt improvement but missed and dose and then stopped taking it. Patient has scant scattered wheezes on exam. Sating normally on RA. Patient given hour long neb with steroids and had some improvement. Additional given reglan for nausea and VALENZUELA. Labs unremarkable including wbc wnl. CXR prelim read with peribronchial thickening but no gross infiltrates. Given patient's h/o RLD will tx with course of Levaquin. Findings and plan for follow-up reviewed with patient. Patient agreeable and d/c'd per discharge instructions. Medication Reconcilliation Current Medication List: was personally reviewed by me Blood Pressure Screening Patient's blood pressure: Normal blood pressure Blood pressure disposition: Did not require urgent referral Impression Primary Impression: Acute bronchitis Scribe Attestation The scribe's documentation has been prepared under my direction and personally reviewed by me in its entirety. I confirm that the note above accurately reflects all work, treatment, procedures, and medical decision making performed by me. Departure Information Dispostion Home / Self-Care Prescriptions Prednisone (Prednisone) 20 Mg Tab 3 TAB PO DAILY for 4 Days, #12 TAB FOR 4 DAYS Prov: Angelito Dawn M.D. 03/03/17 Levofloxacin (LEVAQUIN) 750 Mg Tab 750 MG PO DAILY for 4 Days, #4 TAB Prov: Angelito Dawn M.D. 03/03/17 Referrals Baljeet De La Cruz M.D.(KASH) (PCP) Patient Instructions Bronchitis Acute Dc, My [facility] Additional Instructions Please follow up with your primary care physician on Friday for re-evaluation and to recheck your INR since you were started on prednisone. You likely have a bronchitis. Otherwise, your exam, EKG, chest xray, and lab results did not show signs of an emergent condition at this time. Levaquin and Prednisone as directed. Use your albuterol inhaler 2 puffs every 4 hours for the next 48 hours and then as needed thereafter Return to the emergency department for worsening symptoms as described in the accompanying instructions.
[2017-03-03 02:18] VITALS: BP 102/66; PULSE 116; O2SAT 95
--- NOTE | 2017-03-03 11:00 | DIAGNOSTIC IMAGING REPORT ---
SINGLE VIEW CHEST CLINICAL HISTORY: Atypical chest pain. FINDINGS: An AP, portable, upright chest radiograph is compared to chest x-ray and chest CT dated 05/14/2016. The examination is degraded by portable technique, large body habitus, and patient rotation. The cardiomediastinal silhouette is unremarkable. There is minimal bibasilar atelectasis. The lungs and pleural spaces are otherwise clear. No pneumothorax is seen. The bony thorax is grossly intact. Surgical clips are noted in the right upper quadrant. IMPRESSION: No acute cardiopulmonary abnormality. Electronically signed by: Ezequiel Byers M.D. 03/03/2017 10:58 AM Dictated Date/Time: 03/03/2017 10:57 AM
[2017-03-09] MEDS ORDERED: PRED10TA PO (11:23)
[2017-03-09] MEDS ORDERED: LVQ750 PO (11:23)
[2017-03-09] MEDS ORDERED: FLNIN (11:23)
[2017-03-09] MEDS ORDERED: TMF75 PO (11:23)
== END 2017-03-03 02:19 | disposition home or self-care (01) ==
LOC: C.EDB 23:26
DX: J20.9 Acute bronchitis, unspecified (principal); D68.51 Activated protein C resistance; Z86.711 Personal history of pulmonary embolism; Z98.52 Vasectomy status; Z98.890 Other specified postprocedural states; Z82.49 Family history of ischemic heart disease and other diseases of the circulatory system; Z79.01 Long term (current) use of anticoagulants

== ENCOUNTER 2017-03-07 17:22 | Inpatient (IN) | payer OTHER ==
[~2017-03-07] VITALS: Ht 172.7 cm; Wt 124.6 kg
[~2017-03-07 17:22] MED LIST changes: -ACET-1693 PO; +LEVO-18 PO; -OMEP20CA9 PO; +PRED20TA PO
[2017-03-07] MEDS ORDERED: ALBUT/IPRATROP 3MG/0.5MG NEB 3 ML VIAL INH STA (17:33)
[2017-03-07] MEDS ORDERED: SODIUM CHLORIDE 0.9% 1000ML 1,000 ML IV STA ×2 (17:33→17:52)
--- NOTE | 2017-03-07 17:37 | EMERGENCY ROOM VISIT NOTE ---
History Report prepared by Ruthie: Juan Antonio Reid Under the Supervision of: Dr. Ubaldo Ribeiro M.D. First contact with patient: 17:26 Chief Complaint: SHORTNESS OF BREATH Stated Complaint: REF BY ,JOE,BLURRY VISION,PNEUMONIA History of Present Illness The patient is a 52 year old male who presents to the Emergency Room with complaints of shortness of breath that began 11 days ago. He recently completed a course of Levaquin and Augmentin and had a CT scan at [facility] that showed Pneumonia. He reports chills, shakiness, nausea, dizziness, and visual changes. The patient denies fevers, chest pain, and syncope. The patient denies a history of diabetes mellitus. The patient is currently on Coumadin for history of PEs. Admits chronic lung disease with previous admission for respiratory difficulties. No trauma, chest pain, vomiting, passing out. Does not have any headache though did have one recently. No head injuries. Source of History: patient Onset: 11 days ago Position: other (global) Timing: constant Associated Symptoms: + chills, + SOB, + nausea, No fevers, No chest pain Note: Pt reports shakiness, dizziness, and visual changes. Pt denies syncope. Review of Systems See HPI for pertinent positives & negatives. A total of 10 systems reviewed and were otherwise negative. Past Medical & Surgical Medical Problems: (1) Shelton esophagus (2) Influenza (3) Pneumonia (4) Pulmonary embolism Surgical Problems: (1) H/O exploratory laparotomy (2) H/O shoulder surgery (3) H/O sinus surgery (4) H/O umbilical hernia repair (5) H/O vasectomy Family History Pulmonary embolism Social History Smoking Status: Never Smoker Drug Use: none Marital Status: Housing Status: lives with family Occupation Status: employed Current/Historical Medications Scheduled Pramipexole Dihydrochloride (Mirapex), 0.5 MG PO HS Prednisone (Prednisone Tab), 20 MG PO TAPER Warfarin Sod (Jantoven), 5 MG PO 2XWEEK Warfarin Sod (Jantoven), 7.5 MG PO 5XWEEK Allergies Coded Allergies: Latex (Verified Allergy, Intermediate, RASH, 03/07/17) Penicillin V (Verified Adverse Reaction, Intermediate, gi upset, 03/07/17) Clarithromycin (Verified Adverse Reaction, Unknown, DEPRESSION, 03/07/17) Physical Exam Vital Signs Date Time Temp Pulse Resp B/P (MAP) Pulse Ox O2 Delivery O2 Flow Rate FiO2 03/07/17 19:44 71 20 164/90 94 Room Air 03/07/17 18:22 77 03/07/17 18:06 96 Room Air 03/07/17 18:04 97 Room Air 5.0 Mask 03/07/17 18:00 67 22 146/78 98 Nebulizer 5.0 03/07/17 17:26 36.4 68 24 153/76 95 Room Air Physical Exam GENERAL: Patient is uncomfortable appearing and in moderate distress. HEENT: No acute trauma, normocephalic atraumatic, dry mucous membranes, no nasal congestion, no scleral icterus. NECK: No stridor, no adenopathy, no meningismus, trachea is midline. LUNGS: Dyspneic. Tachypneic. Clear to auscultation and equal bilaterally. Right lung wheezing and crackles. HEART: Regular rate and rhythm. No murmurs, rubs, gallops appreciated. ABDOMEN: Soft, nontender, bowel sounds positive, no masses appreciated, no peritonitis. BACK: No midline tenderness, no CVA tenderness EXTREMITIES: Normal motion all extremities, no cyanosis, no edema. NEUROLOGIC: Alert and oriented, no acute motor or sensory deficits, no focal weakness, cranial nerves grossly intact. SKIN: No rash, no jaundice, no diaphoresis. Medical Decision & Procedures ER Provider Diagnostic Interpretation: Radiology results and stated below per my review and radiologist interpretation: CHEST ONE VIEW PORTABLE CLINICAL HISTORY: Shortness of breath. Pneumonia. COMPARISON STUDY: 03/02/2017 FINDINGS: The heart is mildly enlarged. There is no failure. There is no focal pulmonary consolidation. There are no pleural effusions. Surgical clips project over the liver.[ IMPRESSION: No active disease in the chest. Electronically signed by: Leroy Moran M.D. 03/07/2017 6:03 PM Dictated Date/Time: 03/07/2017 6:02 PM Laboratory Results 03/07/17 17:40 Red Blood Count 5.28, Mean Corpuscular Volume 90.0, Mean Corpuscular Hemoglobin 31.1, Mean Corpuscular Hemoglobin Concent 34.5, Mean Platelet Volume 8.8, Neutrophils (%) (Auto) 77.5, Lymphocytes (%) (Auto) 16.4, Monocytes (%) (Auto) 5.8, Eosinophils (%) (Auto) 0.0, Basophils (%) (Auto) 0.0, Neutrophils # (Auto) 4.57, Lymphocytes # (Auto) 0.97, Monocytes # (Auto) 0.34, Eosinophils # (Auto) 0.00, Basophils # (Auto) 0.00 03/07/17 17:40 Test 03/07/17 17:40 03/07/17 17:48 03/07/17 18:10 White Blood Count 5.90 K/uL (4.8-10.8) Red Blood Count 5.28 M/uL (4.7-6.1) Hemoglobin 16.4 g/dL (14.0-18.0) Hematocrit 47.5 % (42-52) Mean Corpuscular Volume 90.0 fL (80-100) Mean Corpuscular Hemoglobin 31.1 pg (25-34) Mean Corpuscular Hemoglobin Concent 34.5 g/dl (32-36) Platelet Count 232 K/uL (130-400) Mean Platelet Volume 8.8 fL (7.4-10.4) Neutrophils (%) (Auto) 77.5 % Lymphocytes (%) (Auto) 16.4 % Monocytes (%) (Auto) 5.8 % Eosinophils (%) (Auto) 0.0 % Basophils (%) (Auto) 0.0 % Neutrophils # (Auto) 4.57 K/uL (1.4-6.5) Lymphocytes # (Auto) 0.97 K/uL (1.2-3.4) Monocytes # (Auto) 0.34 K/uL (0.11-0.59) Eosinophils # (Auto) 0.00 K/uL (0-0.5) Basophils # (Auto) 0.00 K/uL (0-0.2) RDW Standard Deviation 42.8 fL (36.4-46.3) RDW Coefficient of Variation 12.9 % (11.5-14.5) Immature Granulocyte % (Auto) 0.3 % Immature Granulocyte # (Auto) 0.02 K/uL (0.00-0.02) Prothrombin Time 26.5 SECONDS (9.0-12.0) Prothromb Time International Ratio 2.6 (0.9-1.1) Venous Blood pH 7.46 (7.36-7.41) Venous Blood Partial Pressure CO2 36 mmHg (38.0-50.0) Venous Blood Partial Pressure O2 60 mmHg Venous Blood HCO3 25 mmol/L Venous Blood Oxygen Saturation 90.8 % Venous Blood Base Excess 1.1 mEq/L Anion Gap 9.0 mmol/L (3-11) Est Creatinine Clear Calc Drug Dose 115.3 ml/min Estimated GFR () 106.9 Estimated GFR (Non- 92.2 BUN/Creatinine Ratio 21.0 (10-20) Calcium Level 8.9 mg/dl (8.5-10.1) Magnesium Level 1.8 mg/dl (1.8-2.4) Total Creatine Kinase 64 U/L (39-308) Creatine Kinase MB 0.7 ng/ml (0.5-3.6) Creatine Kinase MB Ratio 1.1 (0-3.0) Troponin I < 0.015 ng/ml (0-0.045) Beta-Hydroxybutyric Acid 0.83 mg/dL (0.2-2.81) Procalcitonin < 0.05 ng/ml (0-0.5) Bedside Lactic Acid Venous 2.40 mmol/L (0.90-1.70) Influenza Type A (RT-PCR) POS for Influ A (NEG) Influenza Type A Antigen Neg for Influ A (NEG) Influenza Type B Antigen Neg for Influ B (NEG) Influenza Type B (RT-PCR) Neg for Influ B (NEG) Laboratory results as reviewed by me. Medications Administered Medications (Trade) Dose Ordered Sig/Sarah Route Start Time Stop Time Status Last Admin Dose Admin Sodium Chloride 1,000 ml @ 75 mls/hr [id number] STAT IV 03/07/17 17:33 03/08/17 06:52 03/07/17 17:56 75 MLS/HR Albuterol/ Ipratropium (Duoneb) 3 ml NOW STAT INH 03/07/17 17:33 03/07/17 17:35 DC 03/07/17 17:56 3 ML Sodium Chloride 1,000 ml @ 999 mls/hr Q1H1M STAT IV 03/07/17 17:52 03/07/17 18:52 DC 03/07/17 17:56 999 MLS/HR Cefepime HCl 2000 mg/Dextrose 122 ml @ 200 mls/hr NOW STAT IV 03/07/17 17:52 03/07/17 18:28 DC 03/07/17 18:13 200 MLS/HR Vancomycin HCl 2500 mg/Sodium Chloride 550 ml @ 200 mls/hr ONE STAT IV 03/07/17 17:52 03/07/17 20:38 DC 03/07/17 18:14 200 MLS/HR Oseltamivir Phosphate (Tamiflu Cap) 75 mg NOW STAT PO 03/07/17 19:27 03/07/17 19:28 DC 03/07/17 19:43 75 MG ECG Indication: SOB/dyspnea Rate (beats per minute): 69 Rhythm: normal sinus Findings: no acute ischemic change, no ectopy ED Course 172: The patient was evaluated in room A10. A complete history and physical exam was performed. 1754: I checked on the patient and they are doing better. 1847: Discussed the patient's case with Dr. Myrtle GALAN hospitalist. The patient will be evaluated for further treatment and disposition. Medical Decision Differential: Infectious, Reactive Airway Disease, Pneumonia, Pneumothorax, COPD , CHF, ACS, Pulmonary Embolism, MSK, GI, Dissection, amongst other etiologies entertained. 52 yr old male with 2 weeks respiratory difficulties significantly worse over last week. Initially Augmentin and then Levaquin for the last 5 days with continued worsening. Seen by PCP and outpatient CT showing pneumonia still and thus sent here. Not hypoxic though is dyspneic. CXR unremarkable though suspect he is on dry side, which may be cause of his lactic acid elevation as well. CBC and temp OK. Not hypotensive. Given empiric broad abx just in case this is early sepsis. Given IV fluids for re-hydration, hold on 30ml/kg as not in septic shock. Already had prednisone today thus will hold on current steroids. On coumadin for PE treatment and I feel repeat CT is not indicated. Recent headache though none now and thus I feel ct head not indicated given gcs 15 without neuro deficits by exam. Hyperglycemic likely secondary to steroids and stress response will need to be further monitored and addressed by hospitalist as well. Medication Reconcilliation Current Medication List: was personally reviewed by me Blood Pressure Screening Patient's blood pressure: Elevated blood pressure Blood pressure disposition: Elevated BP felt to be situational Consults Time Called: [id number] Consulting Physician: Dr. Myrtle GALAN hospitalist Returned Call: [phone] Discussed the patient's case with Dr. Myrtle GALAN hospitalist. The patient will be evaluated for further treatment and disposition. Impression Primary Impression: Pneumonia Additional Impressions: Dehydration Influenza Respiratory distress Hyperglycemia Scribe Attestation The scribe's documentation has been prepared under my direction and personally reviewed by me in its entirety. I confirm that the note above accurately reflects all work, treatment, procedures, and medical decision making performed by me. Departure Information Referrals Baljeet De La Cruz M.D.(KASH) (PCP) Patient Instructions [facility] Problem Qualifiers
[2017-03-07] MEDS ORDERED: CEFEPIME IV 2,000 MG in DEXTROSE 5% 100ML 100 ML IV STA (17:52)
[2017-03-07] MEDS ORDERED: VANCOMYCIN INJ 2,500 MG in SODIUM CHLORIDE 0.9% 500ML 500 ML IV STA (17:52)
[2017-03-07] MEDS ORDERED: PRED20TA2 PO (18:00)
[2017-03-07 18:02] LABS: HEMATOCRIT 47.5 % (42-52); HEMOGLOBIN 16.4 g/dL (14.0-18.0); IG# 0.02 K/uL (0.00-0.02); LYMPH % 16.4 %; LYMPH ABS # 0.97 K/uL (1.2-3.4); MEAN CORPUSCULAR HEMOGLOBIN 31.1 pg (25-34); MEAN CORPUSCULAR HGB CONC 34.5 g/dl (32-36); MEAN PLATELET VOLUME 8.8 fL (7.4-10.4); MONO % 5.8 %; MONO ABS # 0.34 K/uL (0.11-0.59); NEUT % 77.5 %; NEUT ABS # 4.57 K/uL (1.4-6.5); PLATELET COUNT 232 K/uL (130-400); RED CELL DISTRIBUTION WIDTH CV 12.9 % (11.5-14.5); RED CELL DISTRIBUTION WIDTH SD 42.8 fL (36.4-46.3)
--- NOTE | 2017-03-07 18:04 | DIAGNOSTIC IMAGING REPORT ---
CHEST ONE VIEW PORTABLE CLINICAL HISTORY: Shortness of breath. Pneumonia. COMPARISON STUDY: 03/02/2017 FINDINGS: The heart is mildly enlarged. There is no failure. There is no focal pulmonary consolidation. There are no pleural effusions. Surgical clips project over the liver.[ IMPRESSION: No active disease in the chest. Electronically signed by: Leroy Moran M.D. 03/07/2017 6:03 PM Dictated Date/Time: 03/07/2017 6:02 PM
[2017-03-07 18:30] LABS: BLOOD UREA NITROGEN 20 mg/dl (7-18); CALCIUM 8.9 mg/dl (8.5-10.1); CARBON DIOXIDE 25 mmol/L (21-32); CREATININE 0.94 mg/dl (0.60-1.40); GLUCOSE 335 mg/dl (70-99); POTASSIUM 3.9 mmol/L (3.5-5.1); SODIUM 134 mmol/L (136-145)
[2017-03-07 18:38] LABS: INFLUENZA B ANTIGEN Neg for Influ B (NEG)
[2017-03-07 18:40] LABS: CKMB 0.7 ng/ml (0.5-3.6)
[2017-03-07 19:24] LABS: INR 2.6 (0.9-1.1)
[2017-03-07 19:25] LABS: INFLUENZA B PCR Neg for Influ B (NEG)
[2017-03-07 19:27] LABS: INFLUENZA A PCR POS for Influ A (NEG)
[2017-03-07] MEDS ORDERED: OSELTAMIVIR PHOSPHATE 75 MG CAP PO STA (19:27)
[2017-03-07] MEDS ORDERED: NITROGLYCERIN 0.4 MG SL PER TAB CHARGE SL PRN (19:45)
[2017-03-07] MEDS ORDERED: ACETAMINOPHEN 325 MG TAB PO PRN (19:45)
[2017-03-07] MEDS ORDERED: ONDANSETRON INJ 2 MG/ML 2 ML VIAL IV PRN (19:45)
[2017-03-07] MEDS ORDERED: GLUCOSE 10 TABS/TUBE PO PRN (20:15)
[2017-03-07] MEDS ORDERED: GLUCOSE 40% GEL 15 GM TUBE PO PRN (20:15)
[2017-03-07] MEDS ORDERED: DEXTROSE 50% 50 ML SYR IV PRN (20:15)
[2017-03-07] MEDS ORDERED: SODIUM CHLORIDE 0.9% 1000ML 1,000 ML IV SCH (20:15)
[2017-03-07] MEDS: ALBUT/IPRATROP 3MG/0.5MG NEB 3 ML VIAL INH SCH (20:15)
[2017-03-07] MEDS ORDERED: GLUCAGON FOR INJ 1 MG VIAL SQ PRN (20:15)
[2017-03-07] MEDS ORDERED: VANCOMYCIN CONSULT ACTIVE PRN (20:33)
[2017-03-07] MEDS ORDERED: WARFARIN SOD 5 MG TAB PO SCH (21:00)
[2017-03-07 21:28] VITALS: BP 149/81; PULSE 64; TEMP 36.5; O2SAT 97; Ht 172.7 cm; Wt 124.6 kg
--- NOTE | 2017-03-07 21:38 | History and Physical ---
History & Physical Date & Time of Service: Mar 07, 2017 at 20:21 Chief Complaint: Ref By Dr,Sob,Blurry Vision,Pneumonia Primary Care Physician: Baljeet De La Cruz M.D.(KASH) History of Present Illness Source: patient, spouse, clinic records, hospital records Pt is 52 y/o M with PMH restrictive lung disease, Hx previous PE, hypercoagulably on Coumadin, ISABELA not on CPAP, Renal CA presented to ER from PCP with c/o SOB, cough. Pt reports 2 weeks ago started with rhinorrhea, sore throat , cough, otalgia and seen at PCP on 02/23 and started on Augmentin for sinusitis. States had worsening cough and SOB and tactile fevers and seen in ER on 03/02/17 with negative CXR and started on Levaquin and prednisone for bronchitis. Seen by PCP on 03/05/17 and started on ceftin also and prednisone taper (which he started today). Had out pt CT CHEST with Contrast: No PE, patchy airspace opacification w/i L posterior base compatible with pneumonia. He states chronic SOB and has albuterol inhaler to use however reports doesn't work, reports restrictive lung disease on previous PFT's. Denies hx diabetes. States just received influenza vaccine couple days ago. has cough symptoms. Denies diaphoresis, N/V/D/C, VALENZUELA, syncope, vision changes, neck pain, CP, palpitations, hemoptysis, choking, abdominal pain, paresthesias, weakness, extremity edema, rashes, urinary symptoms. In ER afebrile, R: 22, BP: 146/78, P:68, 95% on RA. WBC: 5.9. POC lactic acid: 2.4. Procalcitonin <0.05. Glucose: 335, repeat after IVF 196. beta- hydroxybutyric acid: 0.83. Na: 134 K: 3.9. +influenza A. negative CXR. pending blood cultures. EKG: NSR, rate 69. Given 1L NSS, duoneb, cefepime, vancomycin. Past Medical/Surgical History Medical Problems: (1) Adenocarcinoma, renal cell Permanent Comment: 2016 - Follows with [facility] currently. Clear cell [place] R [place]. [place] [facility] [place]: Chronic (2) [place] esophagus Status: Chronic (3) Hypercoagulability due to prothrombin II mutation Permanent Comment: on coumadin Status: Chronic (4) Pulmonary embolism Status: Resolved (5) Sleep apnea Status: Chronic Surgical Problems: (1) H/O exploratory laparotomy Status: Resolved (2) H/O shoulder surgery Permanent Comment: remove bone spurs L shoulder 05/10/16 Dr. Gibbs Status: Resolved (3) H/O sinus surgery Status: Resolved (4) H/O umbilical hernia repair Status: Resolved (5) H/O vasectomy Status: Resolved Family History Diabetes mellitus Hypertension Pulmonary embolism Stroke Thromboembolic disease Social History Smoking Status: Never Smoker Smokeless Tobacco Use: Quit 2016 - chewed 1-2 can snuff daily x 10 years Alcohol Use: 2-3 beers a week Drug Use: none Marital Status: Housing status: lives with family Occupational Status: employed Immunizations History of Influenza Vaccine: Yes Influenza Vaccine Date: Dec 21, 2008 History of Tetanus Vaccine?: Unknown History of Pneumococcal: No History of Hepatitis B Vaccine: No Multi-Drug Resistant Organisms History of MDRO: No Allergies Coded Allergies: Latex (Verified Allergy, Intermediate, RASH, 03/07/17) Penicillin V (Verified Adverse Reaction, Intermediate, gi upset, 03/07/17) Clarithromycin (Verified Adverse Reaction, Unknown, DEPRESSION, 03/07/17) Home Medications Scheduled Pramipexole Dihydrochloride (Mirapex), 0.5 MG PO HS Prednisone (Prednisone Tab), 20 MG PO TAPER Warfarin Sod (Jantoven), 5 MG PO 2XWEEK Warfarin Sod (Jantoven), 7.5 MG PO 5XWEEK Review of Systems Constitutional: + weight loss (20 pounds past couple weeks - pt reports not eating well with his illness) Eyes: No worsening of vision, No eye pain, No redness, No discharge, No diplopia ENT: + problem reported (see HPI), No trouble swallowing Respiratory: + problem reported (see HPI) Cardiovascular: + problem reported (see HPI) Abdomen: No pain, No nausea, No vomiting, No diarrhea, No constipation Musculoskeletal: No joint pain, No muscle pain, No swelling, No calf pain Genitourinary - Male: No hematuria, No dysuria, No urinary frequency, No urinary urgency Neurologic: No numbness/tingling, No vertigo Endocrine: No excessive thirst, No excessive urination Hematologic / Lymphatic: No abnormal bleeding/bruising, No night sweats Integumentary: No rash, No itch Physical Exam Vital Signs Date Time Temp Pulse Resp B/P (MAP) Pulse Ox O2 Delivery O2 Flow Rate FiO2 03/07/17 19:44 71 20 164/90 94 Room Air 03/07/17 18:22 77 03/07/17 18:06 96 Room Air 03/07/17 18:04 97 Room Air 5.0 Mask 03/07/17 18:00 67 22 146/78 98 Nebulizer 5.0 03/07/17 17:26 36.4 68 24 153/76 95 Room Air General Appearance: no apparent distress, + obese, + pertinent finding (ill appearing but non-toxic appearance) Head: normocephalic, atraumatic Eyes: normal inspection, PERRL, EOMI, sclerae normal ENT: TMs normal, pharynx normal, + pertinent finding (dry mucous membranes) Neck: supple, no adenopathy, trachea midline Respiratory/Chest: chest non-tender, no respiratory distress, no accessory muscle use, + pertinent finding (+wheezing and rhonchi throughout, diminished breath sounds throughout ) Cardiovascular: regular rate, rhythm, no murmur, normal peripheral pulses Abdomen/GI: normal bowel sounds, non tender, soft Extremities/Musculoskelatal: normal inspection, no calf tenderness, normal capillary refill, no pedal edema Neurologic/Psych: alert, normal mood/affect, oriented x 3 Skin: normal color, warm/dry, no rash Diagnostics Laboratory Results Last 24 Hours Test 03/07/17 17:40 03/07/17 17:48 03/07/17 18:10 03/07/17 19:59 White Blood Count 5.90 K/uL Red Blood Count 5.28 M/uL Hemoglobin 16.4 g/dL Hematocrit 47.5 % Mean Corpuscular Volume 90.0 fL Mean Corpuscular Hemoglobin 31.1 pg Mean Corpuscular Hemoglobin Concent 34.5 g/dl Platelet Count 232 K/uL Mean Platelet Volume 8.8 fL Neutrophils (%) (Auto) 77.5 % Lymphocytes (%) (Auto) 16.4 % Monocytes (%) (Auto) 5.8 % Eosinophils (%) (Auto) 0.0 % Basophils (%) (Auto) 0.0 % Neutrophils # (Auto) 4.57 K/uL Lymphocytes # (Auto) 0.97 K/uL Monocytes # (Auto) 0.34 K/uL Eosinophils # (Auto) 0.00 K/uL Basophils # (Auto) 0.00 K/uL RDW Standard Deviation 42.8 fL RDW Coefficient of Variation 12.9 % Immature Granulocyte % (Auto) 0.3 % Immature Granulocyte # (Auto) 0.02 K/uL Prothrombin Time 26.5 SECONDS Prothromb Time International Ratio 2.6 Venous Blood pH 7.46 Venous Blood Partial Pressure CO2 36 mmHg Venous Blood Partial Pressure O2 60 mmHg Venous Blood HCO3 25 mmol/L Venous Blood Oxygen Saturation 90.8 % Venous Blood Base Excess 1.1 mEq/L Sodium Level 134 mmol/L Potassium Level 3.9 mmol/L Chloride Level 100 mmol/L Carbon Dioxide Level 25 mmol/L Anion Gap 9.0 mmol/L Blood Urea Nitrogen 20 mg/dl Creatinine 0.94 mg/dl Est Creatinine Clear Calc Drug Dose 115.3 ml/min Estimated GFR () 106.9 Estimated GFR (Non- 92.2 BUN/Creatinine Ratio 21.0 Random Glucose 335 mg/dl Calcium Level 8.9 mg/dl Magnesium Level 1.8 mg/dl Total Creatine Kinase 64 U/L Creatine Kinase MB 0.7 ng/ml Creatine Kinase MB Ratio 1.1 Troponin I < 0.015 ng/ml Beta-Hydroxybutyric Acid 0.83 mg/dL Procalcitonin < 0.05 ng/ml Bedside Lactic Acid Venous 2.40 mmol/L Influenza Type A (RT-PCR) POS for Influ A Influenza Type A Antigen Neg for Influ A Influenza Type B Antigen Neg for Influ B Influenza Type B (RT-PCR) Neg for Influ B Bedside Glucose 196 mg/dl Diagnostic Radiology CXR: IMPRESSION: No active disease in the chest. Out patient CT CHEST WITH CONTRAST FROM 03/06/17 IMPRESSION: 1. No pulmonary embolus. 2. Patchy airspace opacification within the left posterior base, which in the proper clinical settins is compatible with pneumonia. Given history of renal cell carcinoma, consider 2 month follow up chest CT. Callie Barreto MD EKG EKG: NSR, rate 69, no ST elevation noted Read by fat pressroom worker: Normal sinus rhythm Normal ECG When compared with ECG of 03-MAR-2017 00:07, No significant change was found Confirmed by Wili, Christopher ([id number]) on 03/07/2017 6:31:46 PM Impression Assessment and Plan PNEUMONIA & INFLUENZA Pt with hx cough x 2 weeks, failed out pt treatment with Augmentin, Levaquin, Prednisone. Yesterday CT CHEST: No PE, patchy airspace opacity L base. In ER pt afebrile, P: 68, R:22, BP: 146/78, O2 sat: 95% on RA. Today WBC: 5.9. POC lactic acid: 2.4, negative procalcitonin. +Influenza A. Pt given cefepime and vancomycin, tamilfu 1L NSS, duoneb in ER -pending blood cultures -sputum culture -duonebs -cefepime and vancomycin -prednisone 60mg po -Tamiflu -trend lactic acid -cbc, prp in am DEHYDRATION Pt with dehydration. BUN/CR ratio: 21 Given 1L NSS -IVF-cautious amount HYPERGLYCEMIA Pt no hx DM. Has been on prednisone. Reports drank soda prior to ER arrival. Glucose 335, pt received 1L NSS and down to 196 -HA1c in am -Novolog sliding scale per protocol -continue to monitor HYPERCOAGULABLY ON COUMADIN INR: 2.6 -continue Coumadin. Will give Coumadin 5mg tonight with pt on antibiotics -continue to monitor INR ISABELA Pt doesn't tolerate CPAP DVT PROPHYLAXIS -coumadin DISPOSITION -admit tele -Full Code -Follows with Dr De La Cruz for routine care Pt was seen with Dr Story. See addendum Attending addendum: The patient was seen and examined Increase in SOB with cough and generalized weakness Noted to have Flu and also bibasilar infiltrate O/E Moderate SOB at rest Chest-decreased breath sound bilaterally with widespread wheezing Heart-regular Abdomen-benign,no masses,bowel sound present Extremities-trace edema bilaterally Labs and Imaging studies were reviewed Agree with the assessment and plan. Dr Amrit story Level of Care Telemetry Resuscitation Status FULL RESUSCITATION VTE Prophylaxis VTE Risk Assessment Done? Y/N: Yes Risk Level: High Given or contraindicated: Warfarin (Coumadin) Additional Copies To Baljeet De La Cruz M.D.(DARIO
[2017-03-07] MEDS ORDERED: CEFEPIME IV 2,000 MG in DEXTROSE 5% 100ML 100 ML IV SCH (22:00)
[2017-03-07] MEDS ORDERED: INSULIN GLARGINE SOLOSTAR 100 UNITS/ML 3 ML PEN SC ONE (22:23)
[2017-03-07] MEDS: PRAMIPEXOLE DIHYDROCHLORIDE 0.25MG TAB PO SCH (22:52)
[2017-03-07] MEDS: INSULIN ASPART 100 UNITS/ML 3 ML PEN SC SCH (22:54)
[2017-03-07 23:30] VITALS: BP 134/85; PULSE 76; TEMP 36.8; O2SAT 99
[2017-03-08] VITALS (13 sets, daily range): BP systolic 125–153; BP diastolic 72–95; PULSE 55–78; TEMP 36.3–36.9; O2SAT 92–98
[2017-03-08] MEDS: CEFEPIME IV 2,000 MG in SYRINGE 7.5 ML IV SCH ×3 (02:05→18:40)
[2017-03-08] MEDS: VANCOMYCIN INJ 1,500 MG in SODIUM CHLORIDE 0.9% 500ML 500 ML IV SCH ×2 (04:15→15:49)
[2017-03-08 06:38] LABS: EOS % 0.5 %; EOS ABS # 0.03 K/uL (0-0.5); HEMATOCRIT 42.7 % (42-52); HEMOGLOBIN 14.2 g/dL (14.0-18.0); IG# 0.02 K/uL (0.00-0.02); LYMPH % 35.9 %; MEAN CELL VOLUME 91.8 fL (80-100); MEAN CORPUSCULAR HEMOGLOBIN 30.5 pg (25-34); MEAN CORPUSCULAR HGB CONC 33.3 g/dl (32-36); MEAN PLATELET VOLUME 8.6 fL (7.4-10.4); MONO % 8.8 %; MONO ABS # 0.54 K/uL (0.11-0.59); NEUT % 54.5 %; NEUT ABS # 3.33 K/uL (1.4-6.5); PLATELET COUNT 174 K/uL (130-400); RED CELL DISTRIBUTION WIDTH CV 13.2 % (11.5-14.5); RED CELL DISTRIBUTION WIDTH SD 44.1 fL (36.4-46.3); WHITE BLOOD COUNT 6.12 K/uL (4.8-10.8)
[2017-03-08 06:48] LABS: INR 2.5 (0.9-1.1)
[2017-03-08] MEDS: INSULIN ASPART 100 UNITS/ML 3 ML PEN SC SCH ×4 (07:00→21:11)
[2017-03-08 07:04] LABS: HEMOGLOBIN A1C 7.2 % (4.5-5.6)
[2017-03-08 07:20] LABS: CALCIUM 8.2 mg/dl (8.5-10.1); CREATININE 0.91 mg/dl (0.60-1.40)
[2017-03-08] MEDS: ALBUT/IPRATROP 3MG/0.5MG NEB 3 ML VIAL INH SCH ×4 (07:41→19:14)
[2017-03-08] MEDS: OSELTAMIVIR PHOSPHATE 75 MG CAP PO SCH ×2 (08:04→21:02)
--- NOTE | 2017-03-08 10:46 | Progress Note ---
Subjective Date of Service: Mar 08, 2017. Subjective Pt evaluation today including: conversation w/ patient, physical exam, lab review, review of studies, review of inpatient medication list Saw/examined the patient in room 236 He states he's had trouble breathing and congestion issues for a few weeks Was on Augmentin and then Ceftin as well as a prednisone taper as an outpatient Found to have the flu and pneumonia, as well as wheezing Currently, he feels tired, lethargic. Problem List Medical Problems: (1) Abscess of left periorbital region Status: Acute (2) Acute bronchitis Status: Acute (3) Dehydration Status: Acute (4) DVT (deep venous thrombosis) Status: Acute (5) Hyperglycemia Status: Acute (6) Left sided chest pain Status: Acute (7) Periorbital cellulitis of left eye Status: Acute (8) Respiratory distress Status: Acute (9) Right groin pain Status: Acute Review of Systems Constitutional: + weakness, + fatigue, No fever, No chills Respiratory: + cough, + sputum, + wheezing, + shortness of breath, No dyspnea on exertion, No dyspnea at rest, No hemoptysis Cardiac: No chest pain, No edema, No palpitations Abdomen: No pain, No nausea, No vomiting, No diarrhea Medications Current Inpatient Medications Medications (Trade) Dose Ordered Sig/Sarah Route Start Time Stop Time Status Last Admin Dose Admin Acetaminophen (Tylenol Tab) 650 mg Q4H PRN PO 03/07/17 19:45 04/06/17 19:44 Ondansetron HCl (Zofran Inj) 4 mg Q6H PRN IV 03/07/17 19:45 04/06/17 19:44 Nitroglycerin (Nitrostat Tab) 0.4 mg UD PRN SL 03/07/17 19:45 04/06/17 19:44 Albuterol/ Ipratropium (Duoneb) 3 ml QIDR INH 03/07/17 20:15 04/06/17 20:14 03/08/17 07:41 3 ML Oseltamivir Phosphate (Tamiflu Cap) 75 mg BID PO 03/08/17 09:00 03/13/17 08:59 03/08/17 08:04 75 MG Vancomycin HCl (Consult) 1 ea UD PRN N/A 03/07/17 20:33 04/06/17 20:32 Insulin Aspart (novoLOG ASPART) SLIDING SCALE If C... ACHS SC 03/07/17 21:00 04/06/17 20:59 03/08/17 07:00 7 UNITS Glucose (Glucose 40% Gel) 15-30 GRAMS 15 GRAMS... UD PRN PO 03/07/17 20:15 04/06/17 20:14 Glucose (Glucose Chew Tab) 4-8 Tablets 4 Tabl... UD PRN PO 03/07/17 20:15 04/06/17 20:14 Dextrose (Dextrose 50% 50ML Syringe) 25-50ML OF 50% DW IV FOR... UD PRN IV 03/07/17 20:15 04/06/17 20:14 Glucagon (Glucagon Inj) 1 mg UD PRN SQ 03/07/17 20:15 04/06/17 20:14 Prednisone (PredniSONE TAB) 60 mg DAILY@0900 PO 03/08/17 09:00 04/07/17 08:59 03/08/17 08:04 60 MG Pramipexole Dihydrochloride (miraPEX TAB) 0.5 mg HS PO 03/07/17 21:00 04/06/17 20:59 03/07/17 22:52 0.5 MG Insulin Glargine (Lantus Solostar Pen) 10 units HS SC 03/08/17 21:00 04/07/17 20:59 Cefepime HCl 2000 mg/Syringe 20 ml @ 5 mls/min Q8H IV 03/08/17 02:00 03/14/17 23:59 03/08/17 02:05 5 MLS/MIN Vancomycin HCl 1500 mg/Sodium Chloride 530 ml @ 200 mls/hr Q12H IV 03/08/17 04:00 03/15/17 03:59 03/08/17 04:15 200 MLS/HR Objective Vital Signs Date Time Temp Pulse Resp B/P (MAP) Pulse Ox O2 Delivery O2 Flow Rate FiO2 03/08/17 08:06 Room Air 03/08/17 07:41 36.8 58 20 142/87 (105) 97 Nasal Cannula 3.0 03/08/17 07:40 20 94 Nasal Cannula 2.0 03/08/17 04:00 98 Nasal Cannula 3.0 03/08/17 04:00 36.9 78 21 135/90 (105) 98 Nasal Cannula 3.0 78 03/08/17 03:55 36.6 55 18 147/86 (106) 98 Room Air 03/08/17 00:00 98 Nasal Cannula 3.0 03/07/17 23:30 36.8 76 20 134/85 (101) 99 Nasal Cannula 2.5 03/07/17 21:28 36.5 64 24 149/81 97 Room Air 03/07/17 21:02 68 22 145/76 96 Room Air 03/07/17 20:30 72 20 165/81 96 Room Air 03/07/17 19:44 71 20 164/90 94 Room Air 03/07/17 18:22 77 03/07/17 18:06 96 Room Air 03/07/17 18:04 97 Room Air 5.0 Mask 03/07/17 18:00 67 22 146/78 98 Nebulizer 5.0 03/07/17 17:26 36.4 68 24 153/76 95 Room Air Physical Exam General Appearance: + obese Respiratory/Chest: no respiratory distress, no accessory muscle use, + wheezing (diffuse end expiratory wheezing) Cardiovascular: regular rate, rhythm, no edema, no murmur Extremities: normal inspection, no pedal edema Neurologic/Psychiatric: no motor/sensory deficits, alert, normal mood/affect Laboratory Results Last 24 Hours Test 03/07/17 17:40 03/07/17 17:48 03/07/17 18:10 03/07/17 19:59 White Blood Count 5.90 K/uL Red Blood Count 5.28 M/uL Hemoglobin 16.4 g/dL Hematocrit 47.5 % Mean Corpuscular Volume 90.0 fL Mean Corpuscular Hemoglobin 31.1 pg Mean Corpuscular Hemoglobin Concent 34.5 g/dl Platelet Count 232 K/uL Mean Platelet Volume 8.8 fL Neutrophils (%) (Auto) 77.5 % Lymphocytes (%) (Auto) 16.4 % Monocytes (%) (Auto) 5.8 % Eosinophils (%) (Auto) 0.0 % Basophils (%) (Auto) 0.0 % Neutrophils # (Auto) 4.57 K/uL Lymphocytes # (Auto) 0.97 K/uL Monocytes # (Auto) 0.34 K/uL Eosinophils # (Auto) 0.00 K/uL Basophils # (Auto) 0.00 K/uL RDW Standard Deviation 42.8 fL RDW Coefficient of Variation 12.9 % Immature Granulocyte % (Auto) 0.3 % Immature Granulocyte # (Auto) 0.02 K/uL Prothrombin Time 26.5 SECONDS Prothromb Time International Ratio 2.6 Venous Blood pH 7.46 Venous Blood Partial Pressure CO2 36 mmHg Venous Blood Partial Pressure O2 60 mmHg Venous Blood HCO3 25 mmol/L Venous Blood Oxygen Saturation 90.8 % Venous Blood Base Excess 1.1 mEq/L Sodium Level 134 mmol/L Potassium Level 3.9 mmol/L Chloride Level 100 mmol/L Carbon Dioxide Level 25 mmol/L Anion Gap 9.0 mmol/L Blood Urea Nitrogen 20 mg/dl Creatinine 0.94 mg/dl Est Creatinine Clear Calc Drug Dose 115.3 ml/min Estimated GFR () 106.9 Estimated GFR (Non- 92.2 BUN/Creatinine Ratio 21.0 Random Glucose 335 mg/dl Estimated Average Glucose 160 mg/dl Hemoglobin A1c 7.2 % Calcium Level 8.9 mg/dl Magnesium Level 1.8 mg/dl Total Creatine Kinase 64 U/L Creatine Kinase MB 0.7 ng/ml Creatine Kinase MB Ratio 1.1 Troponin I < 0.015 ng/ml Beta-Hydroxybutyric Acid 0.83 mg/dL Procalcitonin < 0.05 ng/ml Bedside Lactic Acid Venous 2.40 mmol/L Influenza Type A (RT-PCR) POS for Influ A Influenza Type A Antigen Neg for Influ A Influenza Type B Antigen Neg for Influ B Influenza Type B (RT-PCR) Neg for Influ B Bedside Glucose 196 mg/dl Test 03/07/17 22:06 03/07/17 22:27 03/08/17 06:09 03/08/17 06:43 Lactic Acid Level 1.5 mmol/L Bedside Glucose 219 mg/dl 109 mg/dl White Blood Count 6.12 K/uL Red Blood Count 4.65 M/uL Hemoglobin 14.2 g/dL Hematocrit 42.7 % Mean Corpuscular Volume 91.8 fL Mean Corpuscular Hemoglobin 30.5 pg Mean Corpuscular Hemoglobin Concent 33.3 g/dl Platelet Count 174 K/uL Mean Platelet Volume 8.6 fL Neutrophils (%) (Auto) 54.5 % Lymphocytes (%) (Auto) 35.9 % Monocytes (%) (Auto) 8.8 % Eosinophils (%) (Auto) 0.5 % Basophils (%) (Auto) 0.0 % Neutrophils # (Auto) 3.33 K/uL Lymphocytes # (Auto) 2.20 K/uL Monocytes # (Auto) 0.54 K/uL Eosinophils # (Auto) 0.03 K/uL Basophils # (Auto) 0.00 K/uL RDW Standard Deviation 44.1 fL RDW Coefficient of Variation 13.2 % Immature Granulocyte % (Auto) 0.3 % Immature Granulocyte # (Auto) 0.02 K/uL Prothrombin Time 25.7 SECONDS Prothromb Time International Ratio 2.5 Sodium Level 138 mmol/L Potassium Level mmol/L Chloride Level 104 mmol/L Carbon Dioxide Level 30 mmol/L Anion Gap 4.0 mmol/L Blood Urea Nitrogen 15 mg/dl Creatinine 0.91 mg/dl Est Creatinine Clear Calc Drug Dose 120.7 ml/min Estimated GFR () 111.1 Estimated GFR (Non- 95.9 BUN/Creatinine Ratio 16.7 Random Glucose 113 mg/dl Calcium Level 8.2 mg/dl Test 03/08/17 07:52 Potassium Level 3.7 mmol/L Assessment and Plan This is a 52 year old female with a PMH of restrictive lung disease, Factor V Leiden mutation and recurrent/multiple PEs on long-term anticoagulation, morbid obesity, ISABELA not on CPAP, hx. of renal carcinoma, chronic sinusitis, restless leg syndrome presents with worsening shortness of breath and cough Influenza A Restrictive Lung Disease Exacerbation +wheezing on exam +influenza A positive will give Tamiflu x5 days continue prednisone 60mg daily for now, and will taper once improving should have outpatient pulmonology follow-up should be on maintenance inhalers CAP possibly pneumonia outpatient CT suggested L posterior basilar opacity failed outpatient Augmentin and Ceftin currently on Cefepime and Vanco; I'll de-escalate in 1-2 days Chronic Sinusitis will add Flonase Factor V Leiden Mutation Multiple DVTs/PEs continue Coumadin INR goal of 2-[address] shows no PE Restless Leg Syndrome continue Mirapex at home dose DVT ppx Coumadin FULL CODE
--- NOTE | 2017-03-08 11:13 | Pharmacy Progress Note ---
Pharmacy Antibiotic Consult Date of Service: Mar 08, 2017. Pharmacy Dosing Scope Pharmacy is consulted to initiate vancomycin IV dosing therapy, order appropriate labs and adjust drug dose/frequency. Subjective The patient is a 52 year old male admitted on Mar 07, 2017 at 19:50 with SOB, wheezing. Flu and possible pneumonia. Failed out pt courses of Augmentin, Ceftin , and prednisone. Objective Height (Feet): 5 Height (Inches): 8.00 Weight (Kilograms): 124.600 Lab Results (24hrs): Test 03/07/17 17:40 03/07/17 17:48 03/07/17 18:10 03/07/17 22:06 White Blood Count 5.90 K/uL (4.8-10.8) Red Blood Count 5.28 M/uL (4.7-6.1) Hemoglobin 16.4 g/dL (14.0-18.0) Hematocrit 47.5 % (42-52) Mean Corpuscular Volume 90.0 fL (80-100) Mean Corpuscular Hemoglobin 31.1 pg (25-34) Mean Corpuscular Hemoglobin Concent 34.5 g/dl (32-36) Platelet Count 232 K/uL (130-400) Mean Platelet Volume 8.8 fL (7.4-10.4) Neutrophils (%) (Auto) 77.5 % Lymphocytes (%) (Auto) 16.4 % Monocytes (%) (Auto) 5.8 % Eosinophils (%) (Auto) 0.0 % Basophils (%) (Auto) 0.0 % Neutrophils # (Auto) 4.57 K/uL (1.4-6.5) Lymphocytes # (Auto) 0.97 K/uL (1.2-3.4) Monocytes # (Auto) 0.34 K/uL (0.11-0.59) Eosinophils # (Auto) 0.00 K/uL (0-0.5) Basophils # (Auto) 0.00 K/uL (0-0.2) RDW Standard Deviation 42.8 fL (36.4-46.3) RDW Coefficient of Variation 12.9 % (11.5-14.5) Immature Granulocyte % (Auto) 0.3 % Immature Granulocyte # (Auto) 0.02 K/uL (0.00-0.02) Prothrombin Time 26.5 SECONDS (9.0-12.0) Prothromb Time International Ratio 2.6 (0.9-1.1) Venous Blood pH 7.46 (7.36-7.41) Venous Blood Partial Pressure CO2 36 mmHg (38.0-50.0) Venous Blood Partial Pressure O2 60 mmHg Venous Blood HCO3 25 mmol/L Venous Blood Oxygen Saturation 90.8 % Venous Blood Base Excess 1.1 mEq/L Sodium Level 134 mmol/L (136-145) Chloride Level 100 mmol/L (98-107) Carbon Dioxide Level 25 mmol/L (21-32) Anion Gap 9.0 mmol/L (3-11) Blood Urea Nitrogen 20 mg/dl (7-18) Creatinine 0.94 mg/dl (0.60-1.40) Est Creatinine Clear Calc Drug Dose 115.3 ml/min Estimated GFR () 106.9 Estimated GFR (Non- 92.2 BUN/Creatinine Ratio 21.0 (10-20) Random Glucose 335 mg/dl (70-99) Estimated Average Glucose 160 mg/dl Hemoglobin A1c 7.2 % (4.5-5.6) Calcium Level 8.9 mg/dl (8.5-10.1) Magnesium Level 1.8 mg/dl (1.8-2.4) Total Creatine Kinase 64 U/L (39-308) Creatine Kinase MB 0.7 ng/ml (0.5-3.6) Creatine Kinase MB Ratio 1.1 (0-3.0) Troponin I < 0.015 ng/ml (0-0.045) Beta-Hydroxybutyric Acid 0.83 mg/dL (0.2-2.81) Procalcitonin < 0.05 ng/ml (0-0.5) Bedside Lactic Acid Venous 2.40 mmol/L (0.90-1.70) Influenza Type A (RT-PCR) POS for Influ A (NEG) Influenza Type A Antigen Neg for Influ A (NEG) Influenza Type B Antigen Neg for Influ B (NEG) Influenza Type B (RT-PCR) Neg for Influ B (NEG) Lactic Acid Level 1.5 mmol/L (0.4-2.0) Test 03/07/17 22:27 03/08/17 06:09 03/08/17 06:43 03/08/17 07:52 Bedside Glucose 219 mg/dl (70-99) 109 mg/dl (70-99) White Blood Count 6.12 K/uL (4.8-10.8) Red Blood Count 4.65 M/uL (4.7-6.1) Hemoglobin 14.2 g/dL (14.0-18.0) Hematocrit 42.7 % (42-52) Mean Corpuscular Volume 91.8 fL (80-100) Mean Corpuscular Hemoglobin 30.5 pg (25-34) Mean Corpuscular Hemoglobin Concent 33.3 g/dl (32-36) Platelet Count 174 K/uL (130-400) Mean Platelet Volume 8.6 fL (7.4-10.4) Neutrophils (%) (Auto) 54.5 % Lymphocytes (%) (Auto) 35.9 % Monocytes (%) (Auto) 8.8 % Eosinophils (%) (Auto) 0.5 % Basophils (%) (Auto) 0.0 % Neutrophils # (Auto) 3.33 K/uL (1.4-6.5) Lymphocytes # (Auto) 2.20 K/uL (1.2-3.4) Monocytes # (Auto) 0.54 K/uL (0.11-0.59) Eosinophils # (Auto) 0.03 K/uL (0-0.5) Basophils # (Auto) 0.00 K/uL (0-0.2) RDW Standard Deviation 44.1 fL (36.4-46.3) RDW Coefficient of Variation 13.2 % (11.5-14.5) Immature Granulocyte % (Auto) 0.3 % Immature Granulocyte # (Auto) 0.02 K/uL (0.00-0.02) Prothrombin Time 25.7 SECONDS (9.0-12.0) Prothromb Time International Ratio 2.5 (0.9-1.1) Sodium Level 138 mmol/L (136-145) Potassium Level mmol/L (3.5-5.1) 3.7 mmol/L (3.5-5.1) Chloride Level 104 mmol/L (98-107) Carbon Dioxide Level 30 mmol/L (21-32) Anion Gap 4.0 mmol/L (3-11) Blood Urea Nitrogen 15 mg/dl (7-18) Creatinine 0.91 mg/dl (0.60-1.40) Est Creatinine Clear Calc Drug Dose 120.7 ml/min Estimated GFR () 111.1 Estimated GFR (Non- 95.9 BUN/Creatinine Ratio 16.7 (10-20) Random Glucose 113 mg/dl (70-99) Calcium Level 8.2 mg/dl (8.5-10.1) Micro Results: Blood cx x 2 are pending. Recent Pertinent Medications Cefepime 2gm IV q 8 ongoing. Assessment & Plan Vancomycin is empirically started pending cultures. Loading dose: 2500 mg IV X 1 dose (20.5mg/kg) then: 1500 mg IV every 12 hours. Goal trough level estimate: between 15 - 20 mcg/mL for lung penetration. Peak and trough or random level has been ordered for: 03/09 prior to 0400 dose. Pharmacy will continue to follow and will adjust dose/frequency as necessary. Thank you
[2017-03-08] MEDS: FLUTICASONE PROPIONATE NA SPR 16 GM BTL SCH (13:46)
[2017-03-08] MEDS ORDERED: INSULIN GLARGINE SOLOSTAR 100 UNITS/ML 3 ML PEN SC SCH (21:00)
[2017-03-08] MEDS: PRAMIPEXOLE DIHYDROCHLORIDE 0.25MG TAB PO SCH (21:03)
[2017-03-09] MEDS: CEFEPIME IV 2,000 MG in SYRINGE 7.5 ML IV SCH (02:08)
[2017-03-09] MEDS ORDERED: VANCOMYCIN TROUGH ONE (03:30)
[2017-03-09 03:31] LABS: HEMATOCRIT 43.4 % (42-52); HEMOGLOBIN 14.9 g/dL (14.0-18.0); MEAN CELL VOLUME 90.2 fL (80-100); MEAN CORPUSCULAR HGB CONC 34.3 g/dl (32-36); MEAN PLATELET VOLUME 8.6 fL (7.4-10.4); PLATELET COUNT 186 K/uL (130-400); RED CELL DISTRIBUTION WIDTH CV 12.8 % (11.5-14.5); RED CELL DISTRIBUTION WIDTH SD 42.2 fL (36.4-46.3); WHITE BLOOD COUNT 6.65 K/uL (4.8-10.8)
[2017-03-09 03:52] LABS: CALCIUM 8.2 mg/dl (8.5-10.1); CREATININE 0.91 mg/dl (0.60-1.40); POTASSIUM 3.5 mmol/L (3.5-5.1)
[2017-03-09] MEDS: VANCOMYCIN INJ 1,500 MG in SODIUM CHLORIDE 0.9% 500ML 500 ML IV SCH (04:10)
[2017-03-09 07:39] VITALS: PULSE 68; O2SAT 98
[2017-03-09] MEDS: ALBUT/IPRATROP 3MG/0.5MG NEB 3 ML VIAL INH SCH ×2 (07:39→12:13)
[2017-03-09] MEDS: OSELTAMIVIR PHOSPHATE 75 MG CAP PO SCH (08:03)
[2017-03-09] MEDS: INSULIN ASPART 100 UNITS/ML 3 ML PEN SC SCH ×2 (08:08→12:42)
[2017-03-09] MEDS: FLUTICASONE PROPIONATE NA SPR 16 GM BTL SCH (08:09)
[2017-03-09 08:29] VITALS: BP 146/81; PULSE 63; TEMP 36.5; O2SAT 95
[2017-03-09] MEDS ORDERED: LEVOFLOXACIN 750 MG TAB PO SCH (11:00)
--- NOTE | 2017-03-09 11:19 | Progress Note ---
Subjective Date of Service: Mar 09, 2017. Subjective Pt evaluation today including: conversation w/ patient, physical exam, lab review, review of studies, review of inpatient medication list Saw/examined the patient in room 421 Has some shortness of breath, wheezing Improving Mild cough remains as well He is feeling lethargic, but okay with plan to go home. Denies fevers/chills Problem List Medical Problems: (1) Abscess of left periorbital region Status: Acute (2) Acute bronchitis Status: Acute (3) Dehydration Status: Acute (4) DVT (deep venous thrombosis) Status: Acute (5) Hyperglycemia Status: Acute (6) Left sided chest pain Status: Acute (7) Periorbital cellulitis of left eye Status: Acute (8) Respiratory distress Status: Acute (9) Right groin pain Status: Acute Review of Systems Constitutional: No fever, No chills Respiratory: No shortness of breath Cardiac: No chest pain Heme: No abnormal bleeding/bruising Medications Current Inpatient Medications Medications (Trade) Dose Ordered Sig/Sarah Route Start Time Stop Time Status Last Admin Dose Admin Acetaminophen (Tylenol Tab) 650 mg Q4H PRN PO 03/07/17 19:45 04/06/17 19:44 03/09/17 08:04 650 MG Ondansetron HCl (Zofran Inj) 4 mg Q6H PRN IV 03/07/17 19:45 04/06/17 19:44 Nitroglycerin (Nitrostat Tab) 0.4 mg UD PRN SL 03/07/17 19:45 04/06/17 19:44 Albuterol/ Ipratropium (Duoneb) 3 ml QIDR INH 03/07/17 20:15 04/06/17 20:14 03/09/17 07:39 3 ML Oseltamivir Phosphate (Tamiflu Cap) 75 mg BID PO 03/08/17 09:00 03/13/17 08:59 03/09/17 08:03 75 MG Insulin Aspart (novoLOG ASPART) SLIDING SCALE If C... ACHS SC 03/07/17 21:00 04/06/17 20:59 03/09/17 08:08 10 UNITS Glucose (Glucose 40% Gel) 15-30 GRAMS 15 GRAMS... UD PRN PO 03/07/17 20:15 04/06/17 20:14 Glucose (Glucose Chew Tab) 4-8 Tablets 4 Tabl... UD PRN PO 03/07/17 20:15 04/06/17 20:14 Dextrose (Dextrose 50% 50ML Syringe) 25-50ML OF 50% DW IV FOR... UD PRN IV 03/07/17 20:15 04/06/17 20:14 Glucagon (Glucagon Inj) 1 mg UD PRN SQ 03/07/17 20:15 04/06/17 20:14 Prednisone (PredniSONE TAB) 60 mg DAILY@0900 PO 03/08/17 09:00 04/07/17 08:59 03/09/17 08:03 60 MG Pramipexole Dihydrochloride (miraPEX TAB) 0.5 mg HS PO 03/07/17 21:00 04/06/17 20:59 03/08/17 21:03 0.5 MG Insulin Glargine (Lantus Solostar Pen) 10 units HS SC 03/08/17 21:00 04/07/17 20:59 03/08/17 21:12 10 UNITS Fluticasone Propionate (Flonase Nasal [place]) 2 sprays DAILY NA 03/09/17 08:00 04/08/17 08:59 03/09/17 08:09 2 SPRAYS Levofloxacin (Levaquin Tab) 750 mg DAILY@11 PO 03/09/17 11:00 03/16/17 10:59 Objective Vital Signs Date Time Temp Pulse Resp B/P (MAP) Pulse Ox O2 Delivery O2 Flow Rate FiO2 03/09/17 11:11 Room Air 03/09/17 08:29 36.5 63 20 146/81 (102) 95 Room Air 03/09/17 07:39 68 16 98 Room Air 03/08/17 23:21 36.9 67 18 127/77 (94) 94 Room Air 03/08/17 23:10 Room Air 03/08/17 19:15 61 16 95 Room Air 03/08/17 18:23 Nasal Cannula 2.0 03/08/17 15:35 77 20 94 Room Air 03/08/17 15:18 36.8 62 18 125/72 (89) 98 03/08/17 13:36 36.3 67 20 132/81 (98) 92 Room Air 03/08/17 12:02 Room Air 03/08/17 11:51 36.8 60 20 94 03/08/17 11:29 36.8 60 20 153/95 (114) 94 Room Air 03/08/17 11:23 61 20 94 Room Air Physical Exam General Appearance: no apparent distress Respiratory/Chest: chest non-tender, lungs clear, normal breath sounds, no respiratory distress, no accessory muscle use Cardiovascular: regular rate, rhythm, no edema, no murmur Neurologic/Psychiatric: no motor/sensory deficits, alert, normal mood/affect Laboratory Results Last 24 Hours Test 03/08/17 11:17 03/08/17 17:41 03/08/17 20:00 03/09/17 03:17 Bedside Glucose 204 mg/dl 227 mg/dl 186 mg/dl White Blood Count 6.65 K/uL Red Blood Count 4.81 M/uL Hemoglobin 14.9 g/dL Hematocrit 43.4 % Mean Corpuscular Volume 90.2 fL Mean Corpuscular Hemoglobin 31.0 pg Mean Corpuscular Hemoglobin Concent 34.3 g/dl RDW Standard Deviation 42.2 fL RDW Coefficient of Variation 12.8 % Platelet Count 186 K/uL Mean Platelet Volume 8.6 fL Sodium Level 137 mmol/L Potassium Level 3.5 mmol/L Chloride Level 103 mmol/L Carbon Dioxide Level 28 mmol/L Anion Gap 6.0 mmol/L Blood Urea Nitrogen 15 mg/dl Creatinine 0.91 mg/dl Est Creatinine Clear Calc Drug Dose 120.7 ml/min Estimated GFR () 111.1 Estimated GFR (Non- 95.9 BUN/Creatinine Ratio 16.6 Random Glucose 158 mg/dl Calcium Level 8.2 mg/dl Vancomycin Level Trough 8.6 mcg/ml Test 03/09/17 07:44 Bedside Glucose 120 mg/dl Assessment and Plan This is a 52 year old female with a PMH of restrictive lung disease, Factor V Leiden mutation and recurrent/multiple PEs on long-term anticoagulation, morbid obesity, ISABELA not on CPAP, hx. of renal carcinoma, chronic sinusitis, restless leg syndrome presents with worsening shortness of breath and cough Influenza A Restrictive Lung Disease Exacerbation 03/09 improving clinically will d/c home today with Tamiflu to total 5 days will give prednisone tapering dose will also give Levaquin to total 7 days 03/08 +wheezing on exam +influenza A positive will give Tamiflu x5 days continue prednisone 60mg daily for now, and will taper once improving should have outpatient pulmonology follow-up should be on maintenance inhalers CAP possibly pneumonia outpatient CT suggested L posterior basilar opacity failed outpatient Augmentin and Ceftin currently on Cefepime and Vanco; I'll de-escalate in 1-2 days New Onset DM2 ha1c = 7.2%, obesity blood sugars currently elevated secondary to prednisone use will try a quick taper to prevent hyperglycemic episodes repeat Ha1c as outpatient, patient will try dietary changes prior to starting medications recommended start metformin, but can begin as outpatient with close PCP f/u Chronic Sinusitis will add Flonase Factor V Leiden Mutation Multiple DVTs/PEs continue Coumadin INR goal of 2-[address] shows no PE Restless Leg Syndrome continue Mirapex at home dose DVT ppx Coumadin FULL CODE
[2017-03-09] MEDS ORDERED: PRED10TA PO (11:23)
[2017-03-09] MEDS ORDERED: TMF75 PO (11:23)
[2017-03-09] MEDS ORDERED: FLNIN (11:23)
[2017-03-09] MEDS ORDERED: LVQ750 PO (11:23)
[2017-03-09 11:44] VITALS: BP 146/81; TEMP 36.5; O2SAT 95
--- NOTE | 2017-03-09 12:10 | Discharge Instructions ---
Discharge Instructions Date of Service Mar 09, 2017. Admission Reason for Admission: Influenza, Pneumonia Discharge Discharge Diagnosis / Problem: Influenza A, Restrictive Lung Disease, Pneumonia , New onset diabetes Discharge Goals Goal(s): Decrease discomfort, Improve function, Diagnostic testing, Therapeutic intervention Activity Recommendations Activity Limitations: resume your previous activity . Instructions / Follow-Up Instructions / Follow-Up Please follow-up with Dr. De La Cruz on March 12 at 9:45AM * You will be discharged with Tamiflu (for your flu) - take this twice a day for the next 3 days (total of 7 pills) * You will be discharged with prednisone (steroids) * take 4 tablets on 03/10 and 03/11, take 3 tablets on 03/12 and 03/13, take 2 tablets on 03/14 and 03/15, take 1 tablet on 03/16 and 03/17 * You will be discharged with Levaquin (antibiotic) - take this for the next 5 days * You should continue your current Coumadin dose - check INR at the end of the week as antibiotics can interact with Coumadin * Your Ha1c is 7.2% - anything above 6.5% is considered diagnostic for diabetes - discuss with your primary care about rechecking this level in the future vs. starting a medication Current Hospital Diet Patient's current hospital diet: Diabetes Type 2 Diet Discharge Diet Recommended Diet: Diabetes Type 2 Diet Pending Studies Studies pending at discharge: no Laboratory Results Hemoglobin A1c Test 03/07/17 17:40 Range/Units Estimated Average Glucose 160 mg/dl Hemoglobin A1c 7.2 H 4.5-5.6 % Medical Emergencies . Who to Call and When: Medical Emergencies: If at any time you feel your situation is an emergency, please call 911 immediately. . Non-Emergent Contact Non-Emergency issues call your: Primary Care Provider . . "Provider Documentation" section prepared by Edwige Adams. . VTE Core Measure Inpt VTE Proph given/why not?: Warfarin (Coumadin)
[2017-03-09 12:13] VITALS: PULSE 68; O2SAT 98
--- NOTE | 2017-03-09 12:14 | Discharge Summary ---
Discharge Summary Date of Service Mar 09, 2017. Discharge Summary Admission Date: Mar 07, 2017 at 19:50 Discharge Date: Mar 09, 2017 Discharge Disposition: Home Principal Diagnosis: Influenza A Restrictive Lung Disease CAP Obesity New Onset Diabetes Medication Reconciliation New Medications: Prednisone Tab (Prednisone) 10 Mg Tab 10 MG PO UD for 8 Days, #20 TAB Fluticasone Propionate (Fluticasone Propionate) 50 Mcg/Act Spr 2 SPRAYS NA DAILY for 30 Days, #1 BTL Levofloxacin (Levofloxacin) 750 Mg Tab 750 MG PO DAILY for 5 Days, #5 TAB Oseltamivir Phosphate (Tamiflu) 75 Mg Cap 75 MG PO BID for 3 Days, #7 CAP Continued Medications: Pramipexole Dihydrochloride (Mirapex) 0.25 Mg Tab 0.5 MG PO HS, TAB Warfarin Sod ([place]) 5 Mg Tab 5 MG PO 2XWEEK, TAB , Warfarin Sod ([place]) 7.5 Mg Tab 7.5 MG PO 5XWEEK, TAB Friday Discontinued Medications: Prednisone (Prednisone Tab) 20 Mg Tab 20 MG PO TAPER, TAB Admission Information HPI (per Admitting provider): Pt is 52 y/o M with PMH restrictive lung disease, Hx previous PE, hypercoagulably on Coumadin, ISABELA not on CPAP, Renal CA presented to ER from PCP with c/o SOB, cough. Pt reports 2 weeks ago started with rhinorrhea, sore throat , cough, otalgia and seen at PCP on 02/23 and started on Augmentin for sinusitis. States had worsening cough and SOB and tactile fevers and seen in ER on 03/02/17 with negative CXR and started on Levaquin and prednisone for bronchitis. Seen by PCP on 03/05/17 and started on ceftin also and prednisone taper (which he started today). Had out pt CT CHEST with Contrast: No PE, patchy airspace opacification w/i L posterior base compatible with pneumonia. He states chronic SOB and has albuterol inhaler to use however reports doesn't work, reports restrictive lung disease on previous PFT's. Denies hx diabetes. States just received influenza vaccine couple days ago. has cough symptoms. Denies diaphoresis, N/V/D/C, VALENZUELA, syncope, vision changes, neck pain, CP, palpitations, hemoptysis, choking, abdominal pain, paresthesias, weakness, extremity edema, rashes, urinary symptoms. In ER afebrile, R: 22, BP: 146/78, P:68, 95% on RA. WBC: 5.9. POC lactic acid: 2.4. Procalcitonin <0.05. Glucose: 335, repeat after IVF 196. beta- hydroxybutyric acid: 0.83. Na: 134 K: 3.9. +influenza A. negative CXR. pending blood cultures. EKG: NSR, rate 69. Given 1L NSS, duoneb, cefepime, vancomycin. Physical Exam (per Admitting): General Appearance: no apparent distress, + obese, + pertinent finding (ill appearing but non-toxic appearance) Head: normocephalic, atraumatic Eyes: normal inspection, PERRL, EOMI, sclerae normal ENT: TMs normal, pharynx normal, + pertinent finding (dry mucous membranes) Neck: supple, no adenopathy, trachea midline Respiratory/Chest: chest non-tender, no respiratory distress, no accessory muscle use, + pertinent finding (+wheezing and rhonchi throughout, diminished breath sounds throughout ) Cardiovascular: regular rate, rhythm, no murmur, normal peripheral pulses Abdomen/GI: normal bowel sounds, non tender, soft Extremities/Musculoskelatal: normal inspection, no calf tenderness, normal capillary refill, no pedal edema Neurologic/Psych: alert, normal mood/affect, oriented x 3 Skin: normal color, warm/dry, no rash Hospital Course This is a 52 year old female with a PMH of restrictive lung disease, Factor V Leiden mutation and recurrent/multiple PEs on long-term anticoagulation, morbid obesity, ISABELA not on CPAP, hx. of renal carcinoma, chronic sinusitis, restless leg syndrome presents with worsening shortness of breath and cough Influenza A Restrictive Lung Disease Exacerbation 03/09 improving clinically will d/c home today with Tamiflu to total 5 days will give prednisone tapering dose will also give Levaquin to total 7 days 03/08 +wheezing on exam +influenza A positive will give Tamiflu x5 days continue prednisone 60mg daily for now, and will taper once improving should have outpatient pulmonology follow-up should be on maintenance inhalers CAP possibly pneumonia outpatient CT suggested L posterior basilar opacity failed outpatient Augmentin and Ceftin currently on Cefepime and Vanco; I'll de-escalate in 1-2 days New Onset DM2 ha1c = 7.2%, obesity blood sugars currently elevated secondary to prednisone use will try a quick taper to prevent hyperglycemic episodes repeat Ha1c as outpatient, patient will try dietary changes prior to starting medications recommended start metformin, but can begin as outpatient with close PCP f/u Chronic Sinusitis will add Flonase Factor V Leiden Mutation Multiple DVTs/PEs continue Coumadin INR goal of 2-[address] shows no PE Restless Leg Syndrome continue Mirapex at home dose DVT ppx Coumadin FULL CODE Total time spent on discharge = 45 minutes This includes examination of the patient, discharge planning, medication reconciliation, and communication with other providers. Discharge Instructions Please follow-up with Dr. De La Cruz on March 12 at 9:45AM * You will be discharged with Tamiflu (for your flu) - take this twice a day for the next 3 days (total of 7 pills) * You will be discharged with prednisone (steroids) * take 4 tablets on 03/10 and 03/11, take 3 tablets on 03/12 and 03/13, take 2 tablets on 03/14 and 03/15, take 1 tablet on 03/16 and 03/17 * You will be discharged with Levaquin (antibiotic) - take this for the next 5 days * You should continue your current Coumadin dose - check INR at the end of the week as antibiotics can interact with Coumadin * Your Ha1c is 7.2% - anything above 6.5% is considered diagnostic for diabetes - discuss with your primary care about rechecking this level in the future vs. starting a medication
== END 2017-03-09 13:06 | disposition home or self-care (01) | DRG 194 ==
LOC: C.EDB 17:23 → C.2T 19:50 → UNDOADMIN 19:50 → ENRESERV 19:59 → C.4E 03-08 13:27
PROVIDERS: ADMIT Internal Medicine; ATTEND Family Medicine
DX: J10.00 Influenza due to other identified influenza virus with unspecified type of pneumonia (principal); D68.2 Hereditary deficiency of other clotting factors; J18.9 Pneumonia, unspecified organism; G25.81 Restless legs syndrome; E11.65 Type 2 diabetes mellitus with hyperglycemia; K22.70 Barrett's esophagus without dysplasia; Z86.711 Personal history of pulmonary embolism; Z79.01 Long term (current) use of anticoagulants; Z83.3 Family history of diabetes mellitus; Z91.040 Latex allergy status; Z88.0 Allergy status to penicillin; E86.0 Dehydration; J98.4 Other disorders of lung; E66.01 Morbid (severe) obesity due to excess calories; J32.9 Chronic sinusitis, unspecified; Z85.528 Personal history of other malignant neoplasm of kidney

== ENCOUNTER 2018-07-20 15:19 | Inpatient (IN) ==
--- OUTSIDE RECORDS SUMMARY | 2018-07-20 15:23 | External Medical Summary | Continuity of Care Document ---
:1965 Author Name Cas Nielsen, Provider Address Unavailable Unavailable , Care Team Providers Name Role Phone Unavailable Unavailable Unavailable Baljeet De La Cruz Unavailable Unavailable Unavailable Unavailable Unavailable Problems Liver injury (864.00) (S36.119A) Superficial bruising (924.9) (T14.8XXA) Deviated nasal septum (470) (J34.2) Umbilical hernia (553.1) (K42.9) Diverticulitis of colon (562.11) (K57.32) Incisional hernia (553.21) (K43.2) Other seborrheic keratosis (702.19) (L82.1) Multiple pigmented nevi (216.9) (D22.9) Cutaneous skin tags (701.9) (L91.8) Nocturnal hypoxemia (327.24) (G47.34) Renal cancer (189.0) (C64.9) Morbid obesity (278.01) (E66.01) Adjustment disorder with depressed mood (309.0) (F43.21) Allergic rhinitis (477.9) (J30.9) Shelton's esophagus (530.85) (K22.70) Chronic sinusitis (473.9) (J32.9) 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) DVT (deep venous thrombosis) (453.40) (I82.409) 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 Start: 18-Mar-2017 Quantity: 90 Refills: 0 Tylenol 325 MG Oral Capsule , M.D. Start: Refills: 0 Mirapex 0.5 MG Oral Tablet; TAKE 1 TABLET AT BEDTIME. , M.D. Start: 18-Mar-2017 Refills: 0 Fluticasone Propionate 50 MCG/ACT Nasal Suspension; USE 2 SPRAYS IN EACH NOSTRIL ONCE DAILY , M.D. Start: 18-Mar-2017 Quantity: 1 16 GM Bottle Refills: 11 metFORMIN HCl - 500 MG Oral Tablet; TAKE 1 TABLET 3 TI MES DAILY WITH MEALS. , M.D. Start: 18-Mar-2017 Quantity: 90 Refills: 5 Bactrim DS 800-160 MG Oral Tablet; TAKE 1 TABLET TWICE DAILY . , M.D. Start: 10-Apr-2017 Refills: 0 Procedures History of shoulder surgery Status: Comp leted History of sinus surgery Status: Complet ed History of umbilical hernia repair Statu s: Completed History of vasectomy Status: Completed Immunizations Immunizations not documented Family History Mother Family history of cardiac disorder (V17.49) (Z82.49) Status: Active Family history of diabetes mellitus (V18.0) (Z83.3) Status: Active Family history of hypertension (V17.49) (Z82.49) Status: Act selam Family history of cerebrovascular accident (CVA) (V17.1) (Z8 2.3) Status: Active Family history of Status: Active Grandfather Family history of diabetes mellitus (V18.0) (Z83.3) Status: Active Grandmother Family history of diabetes mellitus (V18.0) (Z83.3) Status: Active Sister Family history of hypertension (V17.49) (Z82.49) Status: Act selam Family history of Status: Active Family history of allergic rhinitis (V19.6) (Z83.6) Status: Active Father Family history of Status: Active natural son Family history of cystic fibrosis (V18.19) (Z83.49) Status: Active Social History - Smoking Status Never smoker Plan of Treatment Planned Observations Planned Goals not documented Results No Known Results Results not documented Encounters Appointment; Pulmonary, Funct Testing 28-May-2017 9:45 Encounter Diagnosis: Problem not documented Appointment; Jong Preciado M.D. 27-May-2017 15:45 Encounter Diagnosis: Problem not documented Appointment; Pulmonary, Funct Testing 02-May-2017 14:00 Encounter Diagnosis: Problem not documented Appointment; Jong Preciado M.D. 10-Apr-2017 15:45 Encounter Diagnosis: Problem not documented Appointment; Jong Preciado M.D. 21-Mar-2017 11:00 Encounter Diagnosis: Problem not documented
[2018-07-20] MEDS ORDERED: MoRPHine SULFATE 4 MG/ML 1 ML CARP\\VIAL IV STA (15:54)
--- NOTE | 2018-07-20 15:58 | Emergency Department Note ---
History of Present Illness General Chief complaint: Chest Pain Stated complaint: CHEST PAIN Time Seen by Provider: 07/20/18 15:43 History of Present Illness Maximum Pain Intensity: 3 This is a 53-year-old male with a history of pulmonary emboli that presents to the emergency department via private vehicle accompanied by his with complaints of "chest pain". The patient notes that he has been on Coumadin for several years. He has not missed any doses. He notes that earlier today he was shopping at [employer], pushing a cart when he developed chest tightness and describes it as a thumping sensation in the center of his chest. This lasted 10 to 15 minutes and then subsided once he sat down in his car. He notes that with this episode he also felt winded. He notes minimal residual chest pain currently is a /. He states that when he was last diagnosed with his PEs he did not have any chest pain. He denies any history of NJ. Home Medications Home Medications Medication Instructions Recorded Confirmed Type diclofenac sodium 0 g TOPICAL DIRECTED 07/20/18 07/20/18 History pramipexole 0.5 mg PO HS 07/20/18 07/20/18 History warfarin 7.5 mg PO DAILY 07/20/18 07/20/18 History Allergies Allergy/AdvReac Type Severity Reaction Status Date / Time latex Allergy Intermediate Rash Verified 07/20/18 16:59 penicillin V AdvReac Intermediate gi upset Verified 07/20/18 16:59 clarithromycin AdvReac Unknown Depression Verified 07/20/18 16:59 oxycodone [From OxyContin] AdvReac Unknown Chest Pain Verified 07/20/18 17:03 Past Med/Surg History Medical History [place] esophagus (Chronic) Pulmonary embolism (Resolved) Adenocarcinoma, renal cell (Chronic) "2016 - Follows with [facility] currently. 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 Gibbs" Social History Preferred Language: Nepali Communication Ability: Effective Br[employer] Former Required: No Beliefs That Will Affect Care: None Current Living Situation: Spouse Other Information That Helps Us Care for You: No Feels Safe at Home: Yes Safety Concerns: Feels Safe At This Time Smoking Status: Never smoker Do You Dip or Chew Tobacco: No (former user, quit in Jul, 2014) Hx Alcohol Use: Yes Alcohol type: beer Hx Substance Use: No Review of Systems A total of 10 systems reviewed and were otherwise negative Physical Exam Vital Signs Vital Signs - 24 hr 07/20/18 15:34 07/20/18 17:05 07/20/18 17:06 Temperature 36.8 C Temperature Source Oral Sepsis Recent Fever Within 48 Hours No Sepsis New/Unexplained Change in Mental Status No Sepsis Action Taken by Nursing No Action Required Pulse Rate 73 Pulse Rate [Left Finger] Pulse Rhythm [Left Finger] Pulse Strength [Left Finger] Respiratory Rate 18 Respiratory Effort / Characteristics Respiratory Depth Respiratory Pattern Blood Pressure 168/96 H Blood Pressure [Left Arm] Blood Pressure Mean 120 Blood Pressure Mean [Left Arm] Blood Pressure Position [Left Arm] Pulse Oximetry 98 96 96 Oxygen Delivery Method Room Air Room Air Room Air 07/20/18 17:07 07/20/18 17:43 07/20/18 18:32 Temperature Temperature Source Sepsis Recent Fever Within 48 Hours Sepsis New/Unexplained Change in Mental Status Sepsis Action Taken by Nursing Pulse Rate Pulse Rate [Left Finger] 76 64 67 Pulse Rhythm [Left Finger] Regular Regular Regular Pulse Strength [Left Finger] Respiratory Rate 20 20 20 Respiratory Effort / Characteristics Non-Labored Non-Labored Non-Labored Respiratory Depth Normal Normal Normal Respiratory Pattern Regular Regular Regular Blood Pressure Blood Pressure [Left Arm] 128/82 130/79 135/71 Blood Pressure Mean Blood Pressure Mean [Left Arm] 97 96 92 Blood Pressure Position [Left Arm] Pulse Oximetry 96 97 97 Oxygen Delivery Method Room Air Room Air Room Air 07/20/18 19:56 07/20/18 21:25 07/20/18 22:27 Temperature Temperature Source Sepsis Recent Fever Within 48 Hours Sepsis New/Unexplained Change in Mental Status Sepsis Action Taken by Nursing Pulse Rate Pulse Rate [Left Finger] 63 76 Pulse Rhythm [Left Finger] Regular Regular Pulse Strength [Left Finger] Normal Normal Respiratory Rate 18 18 Respiratory Effort / Characteristics Non-Labored Spontaneous Non-Labored Spontaneous Non-Labored Spontaneous Respiratory Depth Normal Normal Normal Respiratory Pattern Regular Regular Regular Blood Pressure Blood Pressure [Left Arm] 129/99 146/89 H Blood Pressure Mean Blood Pressure Mean [Left Arm] 109 108 Blood Pressure Position [Left Arm] Sitting Sitting Pulse Oximetry 97 98 Oxygen Delivery Method Room Air Room Air Room Air 07/20/18 23:30 Temperature Temperature Source Sepsis Recent Fever Within 48 Hours Sepsis New/Unexplained Change in Mental Status Sepsis Action Taken by Nursing Pulse Rate Pulse Rate [Left Finger] 71 Pulse Rhythm [Left Finger] Regular Pulse Strength [Left Finger] Normal Respiratory Rate 16 Respiratory Effort / Characteristics Non-Labored Respiratory Depth Normal Respiratory Pattern Regular Blood Pressure Blood Pressure [Left Arm] 141/84 H Blood Pressure Mean Blood Pressure Mean [Left Arm] 103 Blood Pressure Position [Left Arm] Lying Pulse Oximetry 95 Oxygen Delivery Method Room Air VITAL SIGNS - Vital signs and nursing notes were reviewed. Hypertensive, otherwise stable GENERAL - 53-year-old male appearing his stated age who is in no acute distress. Communicates well with provider and answers questions appropriately. SKIN - Without rashes. Midline superior abdominal scar noted. HEAD - NC/AT. EYES - PERRL with EOMI bilaterally. Sclera anicteric. EARS - No deformities of external structures noted on gross examination bilaterally. NOSE - Midline and without cyanosis. No epistaxis or purulent drainage noted. MOUTH/OROPHARYNX - Without perioral cyanosis. NECK - Neck with FROM. Supple to palpation. No lymphadenopathy noted. No nuchal rigidity. LUNGS - Chest wall symmetric without accessory muscle use, intercostals retractions, or central cyanosis. Normal vesicular breath sounds CTA B/L. No wheezes, rales, or rhonchi appreciated. CARDIAC - RRR with S1/S2. No murmur, rubs, or gallops appreciated. ABDOMEN - Abdominal contour normal without pulsations or visible masses. BS normoactive all four quadrants. No tenderness, palpable masses, hepatosplenomegaly, or ascites noted. EXTREMITIES - No clubbing or peripheral cyanosis. No pretibial edema present. +5/5 strength noted in UE/LE bilaterally. NEUROLOGIC - Cranial nerves II through XII grossly intact. PSYCH - A&O, and cooperates fully with examiner. Pt is very pleasant and interacts well with examiner. Course Administered Medications Discontinued Medications Ioversol (Optiray 320 100ml) 120 ml IV ONCE PRN PRN Reason: Interaction Checking Stop: 07/24/18 17:39 Last Admin: 07/20/18 17:40 Dose: 120 ml Documented by: [id number] Morphine Sulfate (Morphine Sulfate) 4 mg IV NOW STA Stop: 07/20/18 15:55 Last Admin: 07/20/18 19:39 Dose: Not Given Documented by: [id number] Pramipexole Dihydrochloride (Mirapex) 0.5 mg PO NOW STA Stop: 07/21/18 00:10 Last Admin: 07/21/18 00:31 Dose: 0.5 mg Documented by: [id number] Warfarin Sodium (Coumadin) 7.5 mg PO NOW STA Stop: 07/21/18 00:10 Last Admin: 07/21/18 00:31 Dose: 7.5 mg Documented by: [id number] Cosigned by: [id number] Medical Decision Making Laboratory Data Result diagrams: 07/20/18 16:10 07/20/18 16:10 Lab Results 07/20/18 07/20/18 07/20/18 Range/Units 16:10 16:10 16:10 WBC 4.96 (4.8-10.8) K/uL RBC 4.88 (4.7-6.1) M/uL Hgb 14.8 (14.0-18.0) g/dL Hct 42.7 (42-52) % MCV 87.5 (80-100) fL MCH 30.3 (25-34) pg MCHC 34.7 (32-36) g/dL RDW Std Deviation 41.0 (36.4-46.3) fL RDW Coeff of Melody 12.8 (11.5-14.5) % Plt Count 233 (130-400) K/uL MPV 9.0 (7.4-10.4) fL Immature Gran % (Auto) 0.2 % Neut % (Auto) 43.8 % Lymph % (Auto) 43.1 % [place] % (Auto) 10.1 % Eos % (Auto) 2.2 % Baso % (Auto) 0.6 % Immature Gran # (Auto) 0.01 (0.00-0.02) K/uL Neut # (Auto) 2.17 (1.4-6.5) K/uL Lymph # (Auto) 2.14 (1.2-3.4) K/uL [place] # (Auto) 0.50 (0.11-0.59) K/uL Eos # (Auto) 0.11 (0-0.5) K/uL Baso # (Auto) 0.03 (0-0.2) K/uL PT 27.3 H (9.0-12.0) Seconds INR 2.9 H (0.9-1.1) APTT 39.0 H (21.0-31.0) Seconds PTT Ratio 1.4 Sodium 137 (136-145) mmol/L Potassium 3.9 (3.5-5.1) mmol/L Chloride 106 (98-107) mmol/L Carbon Dioxide 25 (21-32) mmol/L Anion Gap 6.0 (3-11) BUN 12 (7-18) mg/dl Creatinine 0.79 (0.6-1.4) mg/dl Est Cr Clr Drug Dosing 137.4 ml/min Est GFR ( Amer) 118.0 Est GFR (Non-Af Amer) 101.8 BUN/Creatinine Ratio 14.9 (10-20) Glucose 105 H (70-99) mg/dl Calcium 8.8 (8.5-10.1) mg/dl Magnesium 2.0 (1.8-2.4) mg/dl Total Bilirubin 0.5 (0.2-1) mg/dl AST 37 (15-37) U/L ALT 51 (12-78) U/L Alkaline Phosphatase 74 (45-117) U/L Troponin I < 0.015 (0-0.045) ng/ml Total Protein 7.6 (6.4-8.2) gm/dl Albumin 3.6 (3.4-5.0) gm/dl Globulin 4.0 (2.5-4.0) gm/dl Albumin/Globulin Ratio 0.9 (0.9-2) Lipase 234 (73-393) U/L TSH 3.500 (0.300-4.500) uIu/ml Hepatitis C Ab Screen (Neg) 07/20/18 07/20/18 07/20/18 Range/Units 16:10 18:40 19:59 WBC (4.8-10.8) K/uL RBC (4.7-6.1) M/uL Hgb (14.0-18.0) g/dL Hct (42-52) % MCV (80-100) fL MCH (25-34) pg MCHC (32-36) g/dL RDW Std Deviation (36.4-46.3) fL RDW Coeff of Melody (11.5-14.5) % Plt Count (130-400) K/uL MPV (7.4-10.4) fL Immature Gran % (Auto) % Neut % (Auto) % Lymph % (Auto) % [place] % (Auto) % Eos % (Auto) % Baso % (Auto) % Immature Gran # (Auto) (0.00-0.02) K/uL Neut # (Auto) (1.4-6.5) K/uL Lymph # (Auto) (1.2-3.4) K/uL [place] # (Auto) (0.11-0.59) K/uL Eos # (Auto) (0-0.5) K/uL Baso # (Auto) (0-0.2) K/uL PT (9.0-12.0) Seconds INR (0.9-1.1) APTT (21.0-31.0) Seconds PTT Ratio Sodium (136-145) mmol/L Potassium (3.5-5.1) mmol/L Chloride (98-107) mmol/L Carbon Dioxide (21-32) mmol/L Anion Gap (3-11) BUN (7-18) mg/dl Creatinine (0.6-1.4) mg/dl Est Cr Clr Drug Dosing ml/min Est GFR ( Amer) Est GFR (Non-Af Amer) BUN/Creatinine Ratio (10-20) Glucose (70-99) mg/dl Calcium (8.5-10.1) mg/dl Magnesium (1.8-2.4) mg/dl Total Bilirubin (0.2-1) mg/dl AST (15-37) U/L ALT (12-78) U/L Alkaline Phosphatase (45-117) U/L Troponin I Cancelled < 0.015 (0-0.045) ng/ml Total Protein (6.4-8.2) gm/dl Albumin (3.4-5.0) gm/dl Globulin (2.5-4.0) gm/dl Albumin/Globulin Ratio (0.9-2) Lipase (73-393) U/L TSH (0.300-4.500) uIu/ml Hepatitis C Ab Screen Neg (Neg) Imaging Data Radiologist's Impression: CHEST CTA for PULMONARY ARTERIES CT DOSE: 586.40 mGycm HISTORY: hx pe, atypical chest pain and dyspnea TECHNIQUE: Multiaxial CT images of the chest were performed following the intravenous administration of contrast to evaluate the pulmonary arteries. Ma ximal intensity projection images were also obtained. A dose lowering technique was utilized adhering to the principles of ALARA. COMPARISON STUDY: Chest CTA 05/14/2016. FINDINGS: Normal caliber thoracic aorta with no evidence for dissection. Respiratory motion artifact results in near nondiagnostic evaluation of the majority of the right middle lobe and bilateral lower lobe segmental/subsegment al pulmonary arteries. No definite filling defects identified within the remaining pulmonary arteries to suggest pulmonary bolus. Hepatic steatosis. Multiple surgical clips seen within the liver. Punctate calcified granulomas within the spleen. The adrenal glands are unremarkable. No pleural or gurjit cardial effusions. Calcified mediastinal lymph nodes. No hilar lymphadenopathy. Normal esophagus. No fractures within the visualized osseous structures. No pneumothorax. The central airways are patent. No focal lung consolidations to suggest pneumonia. IMPRESSION: No definite evidence for pulmonary embolus with limitations as described above. Electronically signed by: Eric Low M.D. 07/20/2018 5:59 PM [facility] Narrative Patient was seen and evaluated as above in room B8. Review was performed of nursing notes and vital signs. After obtaining a thorough history and physical examination the above work up was performed. The patient presents to us today with a highly suspicious history for that of possible cardiac chest pain. He developed what I would state as exertional chest pain, noting that it developed while he was walking/pushing the cart while at the grocery store. Then when he got in his car and rested the pain went away. Upon presentation he has stable vital signs overall. He has a history of PEs and is on chronic anticoagulation with Coumadin. IV access was established. EKG was performed. EKG reveals normal sinus rhythm, rate of 68 bpm without any evidence of NJ. Initial troponin was negative. Repeat troponin negative. He was ordered morphine for pain and declined this. CBC reveals no leukocytosis or concerning anemia. INR 2.9. No emergent metabolic abnormality noted. Lipase within normal limits. TSH normal. Decision was made to obtain a CTA of the chest given the patient's history of multiple PE. This is as above and although there is limitations with the study there is no definite PE. The patient per my calculation has a heart score of 4. This is for a highly suspicious history given the exertional pain that was alleviated with rest, his age, family history of heart event prior to age 65, and elevated BMI. This places him into a risk category which I do believe warrants further evaluation in the inpatient setting. Patient was educated upon this. He was in agreement to stay. I discussed these findings with the hospitalist. I also discussed this with the attending physician. Please refer to further documentation regarding his stay. The patient was educated upon management, educated upon todays findings/results, educated upon importance of follow up from today's visit, educated upon symptoms in which to return, had questions answered prior to discharge, verbalized understanding, and was discharged home in good condition. IMPRESSION: Chest Pain In the evaluation and treatment of this patient, the following differential diagnoses were considered: NJ, ASC, Dysrhythmia, Angina, Mediastinitis, GERD, Esophagitis, PE, Pneumonia, Bronchitis, Costochondritis, Rib Fracture, Zoster. Impression & Plan Chest pain Discharge Plan Visit Data *Final* Discharge Date/Time: 07/21/18 00:27 Chief Complaint: Chest Pain Stated Complaint: CHEST PAIN ED Provider: Tiffani Mcdaniel ED Midlevel Provider: Dami Alvarez Discharge Problem: Chest pain Patient Disposition: Admitted As Inpatient Condition: Good Discharge Instructions Interventions: ED Discharge Assessment Last Done: 07/21/18 00:27
[2018-07-20 16:20] LABS: Basophils # (auto) 0.03 K/uL (0-0.2); Basophils % (auto) 0.6 %; Eosinophils # (auto) 0.11 K/uL (0-0.5); Eosinophils % (auto) 2.2 %; Hematocrit (blood only) 42.7 % (42-52); Hemoglobin 14.8 g/dL (14.0-18.0); Immature Granulocytes # (auto) 0.01 K/uL (0.00-0.02); Immature Granulocytes % (auto) 0.2 %; Lymphocytes # (auto) 2.14 K/uL (1.2-3.4); Lymphocytes % (auto) 43.1 %; Mean Corpuscular Hgb Conc 34.7 g/dL (32-36); Mean Corpuscular Volume 87.5 fL (80-100); Monocytes % (auto) 10.1 %; Neutrophils # (auto) 2.17 K/uL (1.4-6.5); Neutrophils % (auto) 43.8 %; Platelet Count 233 K/uL (130-400); RDW Coefficient of Variation 12.8 % (11.5-14.5); Red Blood Count 4.88 M/uL (4.7-6.1); White Blood Count 4.96 K/uL (4.8-10.8)
[2018-07-20 16:30] LABS: INR 2.9 (0.9-1.1); Partial Thromboplastin Ratio 1.4; Prothrombin Time 27.3 Seconds (9.0-12.0)
[2018-07-20 16:52] LABS: Alanine Aminotransferase 51 U/L (12-78); Albumin Level 3.6 gm/dl (3.4-5.0); Aspartate Aminotransferase 37 U/L (15-37); BUN Creatinine Ratio 14.9 (10-20); Blood Urea Nitrogen 12 mg/dl (7-18); Calcium 8.8 mg/dl (8.5-10.1); Carbon Dioxide 25 mmol/L (21-32); Chloride 106 mmol/L (98-107); Creatinine Clr Calc Pharmacy 137.4 ml/min; Est GFR (Non-African American) 101.8; Glucose 105 mg/dl (70-99); Potassium 3.9 mmol/L (3.5-5.1); Sodium 137 mmol/L (136-145)
[2018-07-20 17:03] LABS: Albumin Globulin Ratio 0.9 (0.9-2); Alkaline Phosphatase 74 U/L (45-117); Bilirubin,Total 0.5 mg/dl (0.2-1); Total Protein 7.6 gm/dl (6.4-8.2); Troponin I < 0.015 ng/ml (0-0.045)
[2018-07-20] MEDS ORDERED: IOVERSOL 100ml IV PRN (17:40)
--- NOTE | 2018-07-20 18:00 | CT Scan Report ---
CHEST CTA for PULMONARY ARTERIES CT DOSE: 586.40 mGycm HISTORY: hx pe, atypical chest pain and dyspnea TECHNIQUE: Multiaxial CT images of the chest were performed following the intravenous administration of contrast to evaluate the pulmonary arteries. Maximal intensity projection images were also obtaine d. A dose lowering technique was utilized adhering to the principles of ALARA. COMPARISON STUDY: Chest CTA 05/14/2016. FINDINGS: Normal caliber thoracic aorta with no evidence for dissection. Respiratory motion artifact results in near nondiagnostic evaluation of the majority of the right middle lobe and bilateral lower lobe segmental/subsegmental pulmonary arteries. No definite filling defects identified within the re maining pulmonary arteries to suggest pulmonary bolus. Hepatic steatosis. Multiple surgical clips see n within the liver. Punctate calcified granulomas within the spleen. The adrenal glands are unremarka ble. No pleural or pericardial effusions. Calcified mediastinal lymph nodes. No hilar lymphadenopathy . Normal esophagus. No fractures within the visualized osseous structures. No pneumothorax. The centr al airways are patent. No focal lung consolidations to suggest pneumonia. IMPRESSION: No definite evidence for pulmonary embolus with limitations as described above. Electronically signed by: Eric Low M.D. 07/20/2018 5:59 PM
[2018-07-21] MEDS ORDERED: WARFARIN SOD 7.5 MG TAB PO STA (00:09)
[2018-07-21] MEDS ORDERED: PRAMIPEXOLE DIHYDROCHLO 0.5 MG TAB PO STA (00:09)
[2018-07-21] MEDS ORDERED: NITROGLYCERIN SL 0.4 MG/TAB TAB SL PRN (01:02)
[2018-07-21] MEDS ORDERED: ACETAMINOPHEN 325 MG TAB PO PRN (01:02)
[2018-07-21] MEDS ORDERED: ALUMINUM/MAGNESIUM SUSP 30 ML UDC PO PRN (01:02)
[2018-07-21] MEDS ORDERED: ONDANSETRON INJ 2 MG/ML 2 ML VIAL IV PRN (01:02)
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
[2018-07-21] MEDS ORDERED: PERFLUTREN LIPID MICROSPHERE (DEFINITY) IV ONE (07:09)
[2018-07-21 07:35] LABS: Basophils # (auto) 0.02 K/uL (0-0.2); Basophils % (auto) 0.5 %; Eosinophils % (auto) 2.5 %; Hematocrit (blood only) 42.1 % (42-52); Hemoglobin 14.7 g/dL (14.0-18.0); Immature Granulocytes # (auto) 0.01 K/uL (0.00-0.02); Immature Granulocytes % (auto) 0.2 %; Lymphocytes # (auto) 1.59 K/uL (1.2-3.4); Lymphocytes % (auto) 39.3 %; Mean Corpuscular Hgb Conc 34.9 g/dL (32-36); Mean Corpuscular Volume 86.8 fL (80-100); Mean Platelet Volume 8.7 fL (7.4-10.4); Monocytes # (auto) 0.33 K/uL (0.11-0.59); Monocytes % (auto) 8.1 %; Neutrophils % (auto) 49.4 %; Platelet Count 209 K/uL (130-400); RDW Coefficient of Variation 12.8 % (11.5-14.5); RDW Standard Deviation 40.9 fL (36.4-46.3); Red Blood Count 4.85 M/uL (4.7-6.1); White Blood Count 4.05 K/uL (4.8-10.8)
[2018-07-21 07:44] LABS: INR 2.7 (0.9-1.1); Prothrombin Time 25.4 Seconds (9.0-12.0)
[2018-07-21 08:09] LABS: BUN Creatinine Ratio 11.7 (10-20); Creatinine Clr Calc Pharmacy 127.9 ml/min; Est GFR (Non-African American) 99.3; Potassium 3.9 mmol/L (3.5-5.1)
[2018-07-21] MEDS ORDERED: PHYTONADIONE PED 1 MG/0.5ML AMP/SYRG IV ONE (12:42)
--- NOTE | 2018-07-21 12:47 | Hospitalist Progress Note ---
Date of Service July 21, 2018 Assessment & Plan (1) Chest pain: Abnormal stress, morphine PRN. Cath planned for am. ASA, Statin. HR is 62 so no BB started. (2) Hypercoagulability due to prothrombin II mutation: holding coumadin with INR elevation in preparation for procedure. (3) RLS (restless legs syndrome): Mirapex per home regimen. (4) DVT prophylaxis: warfarin, SCDs at this time while reversed. Full Code Dispo-to cath in am. Paz Cheng DO [facility] Hospitalist Subjective 53 yo M presented with acute onset chest pain while grocery shopping yesterday. He reports a feeling of someone squeezing his heart which is minor, but states the severe pain has gone. Abnormal stress test this am. Cath planned for am. He would like to try some morphine. Review of Systems Review of Systems: All systems reviewed & are unremarkable except as noted in HPI & below Physical Exam Physical Exam: CONSTITUTIONAL: obese, vitals as above, generally well- appearing EYES: normal conjuctivae, no scleral icterus ENT: MMM RESPIRATORY: clear to auscultation bilaterally, no crackles, rales or wheezes, normal respiratory effort CARDIOVASCULAR: regular rate and rhythm, S1 and 2 heard without murmurs, gallops or rubs, no JVD, no peripheral edema CHEST: inspection of chest was normal GASTROINTESTINAL: normal bowel sounds, soft, nontender, nondistended MUSCULOSKELETAL: strength 5/5 throughout, head is normocephalic and atraumatic, normal palpation of chest wall without tenderness SKIN: warm and dry NEUROLOGIC: CN 2-12 grossly intact, no gross focal deficits. PSYCHIATRIC: alert cooperative and oriented to person, place and time. Results & Data Vital Signs (Past 12 Hours) Vital Signs Temp Pulse Pulse Resp BP BP Pulse Ox 07/21/18 07:54 36.7 C 62 18 121/78 95 07/21/18 05:42 36.5 C 72 18 112/68 94 07/21/18 03:17 71 07/21/18 01:09 36.9 C 72 20 142/87 H 95 07/21/18 01:02 Pulse Ox 07/21/18 07:54 07/21/18 05:42 07/21/18 03:17 07/21/18 01:09 07/21/18 01:02 95 Laboratory Results Short CBC 07/20/18 07/21/18 Range/Units 16:10 07:18 WBC 4.96 4.05 L (4.8-10.8) K/uL Hgb 14.8 14.7 (14.0-18.0) g/dL Hct 42.7 42.1 (42-52) % Plt Count 233 209 (130-400) K/uL BMP 07/20/18 07/21/18 16:10 07:18 Sodium 137 140 Potassium 3.9 3.9 Chloride 106 108 H Carbon Dioxide 25 26 BUN 12 10 Creatinine 0.79 0.84 Glucose 105 H 115 H Calcium 8.8 9.0 Cardiac Enzymes 07/20/18 07/20/18 07/20/18 Range/Units 16:10 18:40 19:59 Troponin I < 0.015 Cancelled < 0.015 (0-0.045) ng/ml 07/21/18 07/21/18 Range/Units 01:19 07:18 Troponin I < 0.015 < 0.015 (0-0.045) ng/ml Liver Function 07/20/18 Range/Units 16:10 Total Bilirubin 0.5 (0.2-1) mg/dl AST 37 (15-37) U/L ALT 51 (12-78) U/L Alkaline Phosphatase 74 (45-117) U/L Albumin 3.6 (3.4-5.0) gm/dl Medications Administered Current Inpatient Medications Acetaminophen (Tylenol) 650 mg PO Q4H PRN PRN Reason: Pain or Fever Stop: 08/20/18 01:01 Al Hydrox/Mg Hydrox/Simethicone (Maalox) 15 ml PO Q4H PRN PRN Reason: Dyspepsia Stop: 08/20/18 01:01 Nitroglycerin (Nitrostat) 0.4 mg SL UD PRN PRN Reason: Chest Pain Stop: 08/20/18 01:01 Ondansetron HCl (Zofran) 4 mg IV Q6H PRN PRN Reason: Nausea Stop: 08/20/18 01:01 Phytonadione (Aqua-Mephyton Ped) 2 mg IV ONE ONE Stop: 07/21/18 12:43 Pramipexole Dihydrochloride (Mirapex) 0.5 mg PO HS RODRIGO Stop: 08/20/18 20:59
[2018-07-21] MEDS ORDERED: PHYTONADIONE 2 MG in SODIUM CHLORIDE 0.9% 50 ML IV SCH (13:00)
[2018-07-21] MEDS ORDERED: MoRPHine SULFATE 2 MG/ML CARP IV ONE (13:55)
[2018-07-21] MEDS ORDERED: MoRPHine SULFATE 2 MG/ML CARP IV PRN (13:55)
[2018-07-21] MEDS ORDERED: ATORVASTATIN 40 MG TAB PO SCH (14:10)
[2018-07-21] MEDS: ASPIRIN 81 MG ECTAB PO SCH (14:56)
--- NOTE | 2018-07-21 15:08 | Cardiology Consultation ---
Date of Consultation July 21, 2018 Assessment & Plan (1) Chest pain: Patient initial EKGs and enzymes negative for myocardial ischemia. Echocardiogram demonstrates preserved LV systolic function Stress to cardiography after above review patient experienced acute dyspnea at moderate level workload. There were no diagnostic EKG changes however septal wall failed to improve the degree of other segments suggestive of anteroseptal ischemia. Given profound symptoms, abnormal or equivocal stress testing I recommended patient undergo diagnostic cardiac catheterization with patient and fully agreeable. Will anticipate procedure in a.m. 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 No signs or symptoms of acute thrombotic event CTA negative for pulmonary emblem (3) Sleep apnea: History of Present Illness Reason for Consultation: Chest pain Requesting Physician: Dr. Cheng Attending Physician: Paz Cheng, DO History of Present Illness Patient is a 53-year-old male with complex past history outlined below. Specifically carries a history of restrictive lung disease, obstructive sleep apnea, obesity, past DVT pulmonary emboli with hypercoagulable state secondary to prothrombin 2 mutation on chronic anticoagulation last thrombotic event grea ter than 3 years prior. Has no prior cardiac history. Denies history of angina congestive heart failure rheumatic fever scarlet fever. Does carry a familial history of premature coronary disease. Presents this admission noting having developed sudden onset acute dyspnea and chest pressure while pushing shopping cart in [facility]. Symptoms per patient were very concerning associated with pounding in his mid chest and limited his ability to proceed. Presented to the emergency room her symptoms had waned after approximately 15 minutes. He has had no further recurrence. Notes no similar episodes. Notes no syncope or near syncope. Notes no history of TIA or stroke. Denies recent fevers chills or sweats notes no cough hoarseness wheeze or hemoptysis notes no melena hematochezia or bleeding disorder. Appetite weighted been stable Allergies Allergy/AdvReac Type Severity Reaction Status Date / Time latex Allergy Intermediate Rash Verified 07/20/18 16:59 penicillin V AdvReac Intermediate gi upset Verified 07/20/18 16:59 clarithromycin AdvReac Unknown Depression Verified 07/20/18 16:59 oxycodone [From OxyContin] AdvReac Unknown Chest Pain Verified 07/20/18 17:03 Home Medications Home Medications Medication Instructions Recorded Confirmed Type diclofenac sodium 0 g TOPICAL DIRECTED 07/20/18 07/20/18 History pramipexole 0.5 mg PO HS 07/20/18 07/20/18 History warfarin 7.5 mg PO DAILY 07/20/18 07/20/18 History Patient History Medical History [place] esophagus (Chronic) Pulmonary embolism (Resolved) Adenocarcinoma, renal cell (Chronic) "2016 - Follows with [facility] currently. Clear cell adenocarcinoma R kidney. 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 Beliefs That Will Affect Care: None Current Living Situation: Spouse Other Information That Helps Us Care for You: No Feels Safe at Home: Yes Safety Concerns: Feels Safe At This Time Smoking Status: Never smoker Do You Dip or Chew Tobacco: No (former user, quit in Jul, 2014) Hx Alcohol Use: Yes Alcohol type: beer Hx Substance Use: No Review of Systems Review of Systems: All systems reviewed & are unremarkable except as noted in HPI & below Physical Exam Constitutional: + obese; no acute distress Eyes: PERRL, conjunctivae normal, anicteric sclerae ENMT: external ear and nose normal, oropharynx normal Neck: trachea midline, no thyromegaly Respiratory: normal respiratory effort, lungs clear to auscultation Cardiovascular: Rate/Rhythm: regular rate and regular rhythm Heart Sounds: normal S1 and normal S2; no gallop and no murmur Vessels: normal peripheral pulses; no JVD Extremities: + edema (Trace) Results & Data Vital Signs (Past 12 Hours) Vital Signs Temp Pulse Pulse Resp BP Pulse Ox 07/21/18 07:54 36.7 C 62 18 121/78 95 07/21/18 05:42 36.5 C 72 18 112/68 94 07/21/18 03:17 71 Laboratory Results Laboratory Results - last 24 hr 07/20/18 07/20/18 07/20/18 16:10 16:10 16:10 WBC 4.96 RBC 4.88 Hgb 14.8 Hct 42.7 MCV 87.5 MCH 30.3 MCHC 34.7 RDW Std Deviation 41.0 RDW Coeff of Melody 12.8 Plt Count 233 MPV 9.0 Immature Gran % (Auto) 0.2 Neut % (Auto) 43.8 Lymph % (Auto) 43.1 Heard % (Auto) 10.1 Eos % (Auto) 2.2 Baso % (Auto) 0.6 Immature Gran # (Auto) 0.01 Neut # (Auto) 2.17 Lymph # (Auto) 2.14 Heard # (Auto) 0.50 Eos # (Auto) 0.11 Baso # (Auto) 0.03 PT 27.3 H INR 2.9 H APTT 39.0 H PTT Ratio 1.4 Sodium 137 Potassium 3.9 Chloride 106 Carbon Dioxide 25 Anion Gap 6.0 BUN 12 Creatinine 0.79 Est Cr Clr Drug Dosing 137.4 Est GFR ( Amer) 118.0 Est GFR (Non-Af Amer) 101.8 BUN/Creatinine Ratio 14.9 Glucose 105 H Calcium 8.8 Magnesium 2.0 Total Bilirubin 0.5 AST 37 ALT 51 Alkaline Phosphatase 74 Troponin I < 0.015 Total Protein 7.6 Albumin 3.6 Globulin 4.0 Albumin/Globulin Ratio 0.9 Triglycerides Cholesterol LDL Cholesterol, Calc VLDL Cholesterol, Calc HDL Cholesterol Cholesterol/HDL Ratio Lipase 234 TSH 3.500 Hepatitis C Ab Screen 07/20/18 07/20/18 07/20/18 16:10 18:40 19:59 WBC RBC Hgb Hct MCV MCH MCHC RDW Std Deviation RDW Coeff of Melody Plt Count MPV Immature Gran % (Auto) Neut % (Auto) Lymph % (Auto) Heard % (Auto) Eos % (Auto) Baso % (Auto) Immature Gran # (Auto) Neut # (Auto) Lymph # (Auto) Heard # (Auto) Eos # (Auto) Baso # (Auto) PT INR APTT PTT Ratio Sodium Potassium Chloride Carbon Dioxide Anion Gap BUN Creatinine Est Cr Clr Drug Dosing Est GFR ( Amer) Est GFR (Non-Af Amer) BUN/Creatinine Ratio Glucose Calcium Magnesium Total Bilirubin AST ALT Alkaline Phosphatase Troponin I Cancelled < 0.015 Total Protein Albumin Globulin Albumin/Globulin Ratio Triglycerides Cholesterol LDL Cholesterol, Calc VLDL Cholesterol, Calc HDL Cholesterol Cholesterol/HDL Ratio Lipase TSH Hepatitis C Ab Screen Neg 07/21/18 07/21/18 07/21/18 01:19 07:18 07:18 WBC 4.05 L RBC 4.85 Hgb 14.7 Hct 42.1 MCV 86.8 MCH 30.3 MCHC 34.9 RDW Std Deviation 40.9 RDW Coeff of Melody 12.8 Plt Count 209 MPV 8.7 Immature Gran % (Auto) 0.2 Neut % (Auto) 49.4 Lymph % (Auto) 39.3 Heard % (Auto) 8.1 Eos % (Auto) 2.5 Baso % (Auto) 0.5 Immature Gran # (Auto) 0.01 Neut # (Auto) 2.00 Lymph # (Auto) 1.59 Heard # (Auto) 0.33 Eos # (Auto) 0.10 Baso # (Auto) 0.02 PT INR APTT PTT Ratio Sodium 140 Potassium 3.9 Chloride 108 H Carbon Dioxide 26 Anion Gap 7.0 BUN 10 Creatinine 0.84 Est Cr Clr Drug Dosing 127.9 Est GFR ( Amer) 115.0 Est GFR (Non-Af Amer) 99.3 BUN/Creatinine Ratio 11.7 Glucose 115 H Calcium 9.0 Magnesium 2.0 Total Bilirubin AST ALT Alkaline Phosphatase Troponin I < 0.015 Total Protein Albumin Globulin Albumin/Globulin Ratio Triglycerides 150 Cholesterol 171 LDL Cholesterol, Calc 107 VLDL Cholesterol, Calc 30 HDL Cholesterol 34 Cholesterol/HDL Ratio 5 Lipase TSH Hepatitis C Ab Screen 07/21/18 07/21/18 07/21/18 07:18 07:18 13:18 WBC RBC Hgb Hct MCV MCH MCHC RDW Std Deviation RDW Coeff of Melody Plt Count MPV Immature Gran % (Auto) Neut % (Auto) Lymph % (Auto) Heard % (Auto) Eos % (Auto) Baso % (Auto) Immature Gran # (Auto) Neut # (Auto) Lymph # (Auto) Heard # (Auto) Eos # (Auto) Baso # (Auto) PT 25.4 H INR 2.7 H APTT PTT Ratio Sodium Potassium Chloride Carbon Dioxide Anion Gap BUN Creatinine Est Cr Clr Drug Dosing Est GFR ( Amer) Est GFR (Non-Af Amer) BUN/Creatinine Ratio Glucose Calcium Magnesium Total Bilirubin AST ALT Alkaline Phosphatase Troponin I < 0.015 < 0.015 Total Protein Albumin Globulin Albumin/Globulin Ratio Triglycerides Cholesterol LDL Cholesterol, Calc VLDL Cholesterol, Calc HDL Cholesterol Cholesterol/HDL Ratio Lipase TSH Hepatitis C Ab Screen Diagnostic Findings 21-JUL-2018 07:17:22 [facility]-D ROUTINE RETRIEVAL Normal sinus rhythm Normal ECG When compared with ECG of 20-JUL-2018 15:39, (unconfirmed) No significant change was found
[2018-07-21] MEDS ORDERED: WARFARIN SOD 7.5 MG TAB PO SCH (16:00)
[2018-07-21] MEDS ORDERED: PRAMIPEXOLE DIHYDROCHLO 0.5 MG TAB PO SCH (21:00)
[2018-07-22] MEDS ORDERED: MIDAZOLAM HCL 1 MG/ML 2ML VIAL ONE (07:33)
[2018-07-22] MEDS ORDERED: NiCARDipine HCL INJ 2.5 MG/ML 10 ML AMP ONE (07:33)
[2018-07-22] MEDS ORDERED: fentaNYL citrate 100 MCG/2 ML VIAL ONE (07:33)
[2018-07-22] MEDS ORDERED: HEPARIN (PORCINE) 1000 UNIT/ML 10 ML (CATH LAB USE ONLY) ONE (07:33)
[2018-07-22] MEDS ORDERED: NITROGLYCERIN/D5W 100MCG/ML 20ML SYR ONE (07:34)
[2018-07-22 08:22] LABS: Hematocrit (blood only) 42.1 % (42-52); Hemoglobin 14.3 g/dL (14.0-18.0); Mean Corpuscular Volume 87.9 fL (80-100); Mean Platelet Volume 8.9 fL (7.4-10.4); Platelet Count 204 K/uL (130-400); RDW Coefficient of Variation 12.8 % (11.5-14.5); Red Blood Count 4.79 M/uL (4.7-6.1)
[2018-07-22 08:41] LABS: BUN Creatinine Ratio 13.4 (10-20); Calcium 8.8 mg/dl (8.5-10.1); Creatinine Clr Calc Pharmacy 139.2 ml/min; Est GFR (African American) 118.6; Est GFR (Non-African American) 102.3; Potassium 3.9 mmol/L (3.5-5.1)
[2018-07-22 08:50] LABS: INR 1.9 (0.9-1.1); Prothrombin Time 18.8 Seconds (9.0-12.0)
[2018-07-22] MEDS ORDERED: ACETAMINOPHEN 325 MG TAB PO PRN (10:06)
--- NOTE | 2018-07-22 10:14 | Cardiac Catheterization ---
Cardiac Cath Procedure Full Procedure Date July 22, 2018 Pre-Procedure Diagnosis Pre-Procedure Diagnosis: Angina and Positive Stress Test AUC Score AUC Score: 8 Post-Procedure Diagnosis Post-Procedure Diagnosis: Moderate CAD Procedure(s) Performed Procedure(s) Performed: Coronary Angiography, Left Heart Cath and LV Angiography Title I Paraprofessional Bobo Barnes MD Valve Repairer(s) Salvatore Cole Estimated Blood Loss Estimated Blood Loss: <15cc Medication(s) Medication(s): Fentanyl (12.5 mcg IV), Lidocaine 1% (Local infiltration access site), Nicardipine (300 mcg intra-arterial after arterial sheath insertion) and Versed (1 mg IV x2) Summary of Findings Codominant coronary anatomy Left main: Short with minimal calcification and no disease Left anterior descending: Type III in distribution. Gives rise to a moderate caliber first diagonal branch opposite septal branch in its proximal third and multiple small diagonal branches in its midportion. There is moderate calcification in the left anterior descending and its proximal midportion with a smooth 40 to 50% narrowing at the end of its proximal third. There are moderate irregularities in the mid and distal thirds. The first diagonal branch is narrowed by 60 to 70% at its origin, again a modest caliber vessel Left circumflex: Very large, codominant. Gives rise to a very large obtuse marginal and two large posterior lateral branches along the AV groove. There is moderate irregularities in the left circumflex and large obtuse marginal Right coronary artery: Modest in caliber codominant distribution with mild luminal irregularities LV angiography: EF 65% no wall motion normalities no mitral insufficiency LVEDP: 18 Impression: Moderate coronary atherosclerosis without high-grade obstruction in the origin of these small diagonal branch Plan medical therapy Hemodynamics Rest Ao:: 128/80/101 Final Ao: 130/77/101 LV: 129/12/18 Recommendations Recommendations: Medical Therapy and/or Counseling Specimens Specimens: None Radiation Exposure (mGy) 1983 Contrast (mls) 120 Fluids (cc crystalloids) Fluids (cc crystalloids): 88 Procedural Complication(s) None Disposition [facility] Data: Equipment Operator Wage Hand Cardiac Status Clinical evaluation leading to the procedure CAD Presenation: Positive Stress Test Anginal Classification: CCS III Heart Failure: No Cardiogenic Shock within 24 Hours: No Cardiac Arrest within 24 Hours: No Imaging Studies Past 6 Months: Yes Stress Studies Past 6 Months: Yes Standard Exercise Test: No Stress Echocardiogram: Yes - Indeterminant Stress Testing w/SPECT MPI: No Cardiac CTA: No Coronary Anatomy Dominant: Co-Dominant Left Main (% Stenosis): Normal LAD (% Stenosis): Ostial (20), Proximal (50) and Mid (10) D1 (% Stenosis): Ostial (60) D2 (% Stenosis): Normal D3 (% Stenosis): Normal Circumflex (% Stenosis): Mid (10) OM1 (% Stenosis): Proximal (20) L PL1 (% Stenosis): Normal L PL2 (% Stenosis): Normal RCA (% Stenosis): Normal R PDA (% Stenosis): Normal Left Ventricular Angiography EF (%): 65 Mitral Regurgitation: None Diagnostic Physicians Name: Bobo Barnes MD Status: Urgent Closure Device Percutaneous Entry Location: Radial Closure Device: Angio-Seal Recommendations: Medical Therapy and/or Counseling PCI Indication: + Stress Test
[2018-07-22] MEDS ORDERED: SODIUM CHLORIDE 0.9% 1000ML 1,000 ML IV SCH (10:15)
[2018-07-22] MEDS: ASPIRIN 81 MG ECTAB PO SCH (11:05)
--- NOTE | 2018-07-22 14:47 | Cardiology Progress Note ---
Date of Service July 22, 2018 Assessment & Plan (1) Chest pain: Patient initial EKGs and enzymes negative for myocardial ischemia. Echocardiogram demonstrates preserved LV systolic function Cardiac catheterization is noted with moderate nonobstructive coronary disease Recommendations: Heart healthy lifestyle initiate lipid-lowering therapy with atorvastatin 40 mg/day. 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 Tolerated procedure well no bleeding difficulties notes no chest pains or tachypalpitations. Telemetry this morning demonstrated one brief pause but no other arrhythmias Physical Exam Constitutional: + obese; no acute distress Eyes: PERRL, conjunctivae normal, anicteric sclerae ENMT: external ear and nose normal, oropharynx normal Neck: trachea midline, no thyromegaly Respiratory: normal respiratory effort, lungs clear to auscultation Cardiovascular: Rate/Rhythm: regular rate and regular rhythm Heart Sounds: normal S1 and normal S2; no gallop and no murmur Vessels: normal peripheral pulses and radial pulses present (Radial access site intact with Hemo band in place); no JVD Extremities: + edema (Trace) Results & Data Vital Signs (Past 12 Hours) Vital Signs Temp Pulse Pulse Resp BP BP Pulse Ox 07/22/18 13:20 36.5 C 66 16 118/77 97 07/22/18 12:20 71 127/79 97 07/22/18 11:20 90 16 126/80 96 07/22/18 10:50 62 16 129/82 94 07/22/18 10:35 36.5 C 70 59 L 16 121/80 95 07/22/18 08:09 70 07/22/18 08:03 36.8 C 86 16 121/76 99 07/22/18 04:15 36.6 C 78 20 152/83 H 94
--- NOTE | 2018-07-22 15:16 | Hospitalist Progress Note ---
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 Denies any chest pain, SOB, dizziness Reports chronic Right Upper Extremity pain Offers no other complaints Review of Systems Review of Systems: All systems reviewed & are unremarkable except as noted in HPI & below Physical Exam Physical Exam: Physical Exam: Vitals signs as noted above General Appearance:Moderately built and nourished, no apparent distress Head: normocephalic, Atraumatic Eyes: normal inspection, EOMI Neck: supple, Trachea midline Respiratory/Chest: Normal breath sounds, CTA Cardiovascular: S1, S2, No murmur Abdomen/GI:Soft, Non tender, Bowel sounds present Extremities/Musculoskelatal:normal inspection, no edema Neurologic/Psych:AAOX3, grossly no focal neurological deficits Skin: normal color, warm Results & Data Vital Signs (Past 12 Hours) Vital Signs Temp Pulse Pulse Resp BP BP Pulse Ox 07/22/18 14:20 36.6 C 70 118/77 96 07/22/18 13:20 36.5 C 66 16 118/77 97 07/22/18 12:20 71 127/79 97 07/22/18 11:20 90 16 126/80 96 07/22/18 10:50 62 16 129/82 94 07/22/18 10:35 36.5 C 70 59 L 16 121/80 95 07/22/18 08:09 70 07/22/18 08:03 36.8 C 86 16 121/76 99 07/22/18 04:15 36.6 C 78 20 152/83 H 94 Laboratory Results Short CBC 07/22/18 Range/Units 08:05 WBC 3.80 L (4.8-10.8) K/uL Hgb 14.3 (14.0-18.0) g/dL Hct 42.1 (42-52) % Plt Count 204 (130-400) K/uL BMP 07/22/18 08:05 Sodium 138 Potassium 3.9 Chloride 106 Carbon Dioxide 26 BUN 11 Creatinine 0.78 Glucose 125 H Calcium 8.8
--- NOTE | 2018-07-22 15:29 | Discharge Summary ---
Date of Service July 22, 2018 Admission HPI Per Admitting Provider CHIEF COMPLAINT: Chest pain. 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 The patient was in the [employer], pushing the cart when he developed severe chest pain in central chest, 9/10 in severity. It lasted for 15 minutes and once he went and sat in the car, it slowly subsided on its own. During the episode, he felt short of breath. No nausea, no dizziness, no sweating. Currently, still has minimal chest discomfort. He always has some some shortness of breath, nothing unusual for him. He has chronic abdominal discomfort. Denies any headache, no dizziness. Currently no runny nose, no sore throat, no difficulty swallowing. Normal bowel and bladder movements. No hematuria, no burning micturition. No black stools or hematochezia. No swelling of the legs. No rash. Admission Exam Per Admitting Provider PHYSICAL EXAMINATION: GENERAL: The patient is obese, not in acute distress. VITAL SIGNS: Temperature 36.8, pulse 76, respiratory rate 18, blood pressure 146/89 and oxygen 98% on room air. HEENT: No pallor, no icterus. Pupils equal, round, and reactive to light. NECK: No JVD, no neck masses, no carotid bruit. CARDIOVASCULAR: S1, S2 heard, regular rate and rhythm, no murmur, no gallop. RESPIRATORY SYSTEM: Normal AP diameter. No accessory muscle use. No wheezing, no crackles. ABDOMEN: Soft, bowel sounds present. Mild abdominal discomfort. No guarding, no rigidity. No distention. CENTRAL NERVOUS SYSTEM: Cranial nerves II-XII grossly intact. Nonfocal. EXTREMITIES: No edema, no erythema. Principal Diagnosis Discharge Information Discharge Diagnosis Chest Pain Discharge Goals Decrease discomfort,Improve function,Improve disease control Discharge Activity Limitations Per instructions/follow-up Discharge Data Allergies Allergy/AdvReac Type Severity Reaction Status Date / Time latex Allergy Intermediate Rash Verified 07/20/18 16:59 penicillin V AdvReac Intermediate gi upset Verified 07/20/18 16:59 clarithromycin AdvReac Unknown Depression Verified 07/20/18 16:59 oxycodone [From OxyContin] AdvReac Unknown Chest Pain Verified 07/20/18 17:03 Consultations 07/20/18 21:07 ED Decision to Admit Stat 07/21/18 08:00 Consult Cardiology Routine Procedures Performed Operation Date: 07/22/18 08:00 Actual Procedures p Cath, Left with Cors and Vent - Bobo Barnes MD s Cineradiography w/Routine Exam - Bobo Barnes MD Cardiac Catheterization: Summary of Findings Codominant coronary anatomy Left main: Short with minimal calcification and no disease Left anterior descending: Type III in distribution. Gives rise to a moderate caliber first diagonal branch opposite septal branch in its proximal third and multiple small diagonal branches in its midportion. There is moderate calcification in the left anterior descending and its proximal midportion with a smooth 40 to 50% narrowing at the end of its proximal third. There are moderate irregularities in the mid and distal thirds. The first diagonal branch is narrowed by 60 to 70% at its origin, again a modest caliber vessel Left circumflex: Very large, codominant. Gives rise to a very large obtuse marginal and two large posterior lateral branches along the AV groove. There is moderate irregularities in the left circumflex and large obtuse marginal Right coronary artery: Modest in caliber codominant distribution with mild luminal irregularities LV angiography: EF 65% no wall motion normalities no mitral insufficiency LVEDP: 18 Impression: Moderate coronary atherosclerosis without high-grade obstruction in the origin of these small diagonal branch Plan medical therapy CTA: No definite evidence for pulmonary embolus with limitations as described above. Ordered Studies 07/20/18 15:53 CT angio chest PE protocol Stat 07/22/18 06:43 CL Cath Imgs for PACS use only Routine Hospital Course (1) Chest pain: S/P Cardiac Catheterization:Moderate coronary atherosclerosis without high-grade obstruction Continue ASA, Statin Also on Coumadin ZIO Patch 7 day event monitor as outpatient Heart healthy lifestyle Appreciate Cardiology Input Needs Fu with Cardiology in 1 month (2) Hypercoagulability due to prothrombin II mutation: S/P Vitamin K for the procedure Resume coumadin today Monitor INR: 1.9 today Advised to follow up with Coumadin clinic as outpatient (3) RLS (restless legs syndrome): On Mirapex (4) DVT prophylaxis: On warfarin, SCDs Code Status Full Code Total Time Total Time Spent Total Time Spent (In Minutes): 37 minutes Total Time Includes: Examination of the Patient, Discharge Planning, Medication Reconciliation, Communication With Other Providers and Other Discharge Plan Discharge Items Patient Disposition: Home - Self-Care Reason For Visit: CHEST PAIN Discharge Diagnosis: Chest Pain Condition: Good Discharge Goals: Decrease discomfort, Improve disease control and Improve function Activity: Per 'Additional Instructions' section Lifting: Gradually increase as tolerated Exercise/Sports: Gradually increase as tolerated Non-emergency contact: Primary Care Provider and Provisioning Analyst Call non-emergency contact if: you have any medication questions, your symptoms worsen, your pain is not controlled, your pain is worsening, your pain is unusual for you, your pain is concerning for you, you have a fever, your wound has increased redness, your wound has increased drainage and your wound pain has increased Follow-up/Referrals: Baljeet De La Cruz MD [Primary Care Provider] - Diet: Heart Healthy Add Provider Instructions: Follow-up with your primary care physician Dr. De La Cruz on July 28, 2018 at 11:25 AM Follow up with your Provisioning Analyst in 4 weeks Get ZIO patch event monitor arranged as per the recommendations from your Provisioning Analyst Seek immediate medical attention if your symptoms reoccur or worsen ACTIVITY RECOMMENDATIONS: Excess manipulation of the wrist should be avoided for the next 24-48 hours. * No lifting over 2 pounds (approximately a 1/2 gallon of milk) with the utilized arm for 24 hours. * No strenuous activity such as bowling or tennis for 3 days. * Keep the site of the procedure covered with a bandage for 24 hours. *You may shower the day after the procedure. Do not take a tub bath or submerge the puncture site in water for the next 3 days. *Do not operate any motorized equipment for 3 days. SPECIAL CARE INSTRUCTIONS: The site may be slightly bruised and sore following your procedure. Should any of the following occur, contact the DrHaley who performed your procedure. 1. Redness/inflammation, swelling, chills, or fever, or colored drainage at procedure site within 3-7 days after your procedure. 2. Coldness, discoloration, ongoing numbness, severe pain, or swelling. Expect mild tingling of hand and tenderness at the puncture site for up to three days. If this persists beyond three days, or other symptoms develop, notify the Dr. who performed your procedure. BLEEDING: If the procedure site on your wrist begins to bleed, do not panic 1. Place 1 or 2 fingers firmly just slightly above the insertion site to stop the bleeding. You may be able to feel your pulse as you hold pressure. 2. Lift your finger after 5 minutes to see if the bleeding has stopped. 3. Once the bleeding has stopped, gently wipe the wrist area clean with a bandage. * If the bleeding from your wrist does not stop after 10 minutes, or if there is a large amount of bleeding or spurting, call 911 (do not drive yourself to the hospital). SKIN IRRITATION: * You may experience some redness and/or swelling in the area where radiation was administered. If any skin irritation occurs, please contact your family physician. FOLLOW UP VISIT: Keep any scheduled doctor appointments. Prescriptions: New aspirin [Ecotrin Low Strength] 81 mg Tablet,Delayed Release (Dr/Ec) 81 mg PO DAILY 30 Days Qty: 30 RF: 1 atorvastatin [Lipitor] 40 mg tablet 40 mg PO HS Qty: 30 RF: 1 Continued warfarin 7.5 mg Tablet 7.5 mg PO DAILY RF: 0 pramipexole 0.5 mg tablet 0.5 mg PO HS RF: 0 diclofenac sodium 1 % gel topical DIRECTED RF: 0 Stand-Alone Forms: Call Back Authorization, [facility] Discharge Orders: Discharge Order (Routine); Ordered 07/22/18 Ordered By: Mckay Verdin Admission Data Admit Date/Time: 07/21/18 12:39 Attending Provider: Mckay Verdin Admit Provider: Juan Miguel Hernandez Primary Care Provider: Baljeet De La Cruz Other Providers: Juan Miguel Hernandez ; Jag Dela Cruz ; Paz Cheng Service: Telemetry Other Pending Studies at Discharge: No
[2018-07-22] MEDS ORDERED: WARFARIN SOD 7.5 MG TAB PO SCH (16:00)
== END 2018-07-22 16:00 | disposition home or self-care (01) | DRG 287 ==
LOC: 2W 15:19 → ED 15:19 → 2W 07-21 00:27 → SUATTDRO 07-21 12:39 → 2S 07-22 10:32

== ENCOUNTER 2024-01-03 09:13 | Inpatient (IN) ==
--- NOTE | 2024-01-03 09:47 | Emergency Department Note ---
Impression & Plan Acute left flank pain, Left sided abdominal pain, Diverticulitis, Failure of outpatient treatment ED Provider Note NAME: MENDY SALEEM Jr AGE: 58 SEX: M : 1965 ARRIVES VIA: Walk-In INFORMANT: [Patient] ED PROVIDER(S): [Ezequiel Brooks MD] CHIEF COMPLAINT: Hematuria HISTORY OF PRESENT ILLNESS: The patient is a 58-year-old male who was seen in this ED 2 days ago and diagnosed with diverticulitis. He was seen by the hospital service but eventually, felt safe for discharge home. He is currently on Flagyl and Cipro. The patient states that has had about 4 days of left-sided abdominal and flank pain. He thinks things feel pretty much the same as when he was here 2 days ago, in other words, he is no better. The patient initially had some fever, this though seems to have resolved. He does complain of some nausea, no vomiting. In the last 24 hours, the patient has noticed some dark discoloration to his urine that he thinks may be blood. He is concerned because of the change in urine plus, he has a history of previous renal cancer on the left that was cryoablated. Patient has not had cough or congestion, no shortness of breath. He is on warfarin chronically for multiple PEs. PMHx/PSHx/Social Hx: See Below PHYSICAL EXAM: GENERAL: Patient is in no acute distress. HEENT: No acute trauma, normocephalic atraumatic, mucous membranes moist, no nasal congestion. NECK: No stridor, no adenopathy, no meningismus, trachea is midline. LUNGS: Clear to auscultation bilaterally, no wheeze, no rhonchi, breath sounds equal. HEART: Without murmurs gallops or rubs, regular rate and rhythm. ABDOMEN: Soft, tender along the entire left side of the abdomen, mostly the left lower quadrant. His pain does worsen with position change. EXTREMITIES: No cyanosis, full range of motion of all the joints without pain or difficulty. Mild bilateral pedal edema. NEUROLOGIC: Oriented x 3, no acute motor or sensory deficits, no focal weakness. SKIN: No jaundice, no diaphoresis. Back: Left flank discomfort with percussion. DIFFERENTIAL DIAGNOSIS: Diverticulitis, abscess, renal colic, malignancy, coagulopathy, UTI, among others. EMERGENCY DEPARTMENT PROCEDURES: MEDICAL DECISION MAKING: There is no leukocytosis or concerning anemia. There is a normal platelet count. INR is elevated at 1.5, this is consistent with his warfarin use but is subtherapeutic. No renal failure or significant electrolyte abnormality. No concerning liver enzyme elevation. No evidence for pancreatitis. Urinalysis did not show infection or significant hematuria. Abdominal and pelvis CT shows very slight improvement in the diverticulitis, no ureteral pathology. On exam, the patient was tender along the entire left side of the abdomen and in the area of the left flank. He was not febrile or toxic. Patient received IV morphine for pain, IV Zofran for nausea. He received IV Unasyn as antibiotic coverage. The patient has failed outpatient treatment for his diverticulitis. I think this is causing his left-sided flank and abdominal pain. He has required morphine for his discomfort. Given the circumstances, hospitalization is indicated. I did speak with the patient and case management. The on-call hospitalist was consulted. Prior/Outside records/notes reviewed: ED visit note from 2 days ago describing his presentation, findings in the ED and eventual discharge. Imaging/x-ray results per my interpretation: Chronic Medical/Social conditions affecting care: Chronic warfarin therapy Care/Management discussed with: Case management, the on-call hospitalist. Level of care consideration(s): After review of the information above and other included data: --I believe the patient requires escalation of care to admission DISPOSITION: Admission Past Med/Surg History Problem List (Updated 01/03/24 @ 13:55 by Ezequiel Brooks MD) Failure of outpatient treatment (Acute) Diverticulitis (Acute) Left sided abdominal pain (Acute) Acute left flank pain (Acute) Subtherapeutic international normalized ratio (INR) (Acute) Fever (Acute) Acute diverticulitis (Acute) Lumbosacral facet joint syndrome Other cervical disc degeneration at C6-C7 level Other cervical disc degeneration at C5-C6 level Cubital tunnel syndrome Disc degeneration, lumbosacral S/P arthroscopy of shoulder Rotator cuff tear Calcific tendinitis Biceps tendinitis Gastrocnemius muscle tear Leg pain, posterior Swelling of calf Pain of right calf (Acute) RLS (restless legs syndrome) DVT prophylaxis Chest pain (Acute) [place] esophagus (Chronic) Adenocarcinoma, renal cell (Chronic) "2016 - Follows with V[facility] currently. Clear cell adenocarcinoma R kidney. S/P ablation by Dr Bhat - [facility]" Influenza Hypercoagulability due to prothrombin II mutation (Chronic) "on coumadin" Pneumonia Sleep apnea (Chronic) cpap- does not use, last sleep study stated he did not need, but pcp required cpap for cdl Medical History Low back pain Myocardial Infarction 2017, may have had "mild SC" and chest pain but does not remember details, saw a [facility] library technician for a few years but no longer required f/u. Hypertension Degenerative disc disease, lumbar L5 Surgical History S/P wisdom tooth extraction History of splenectomy History of cholecystectomy History of appendectomy History of colonoscopy History of esophagogastroduodenoscopy (EGD) Family History Other No pertinent family history Social History Smoking Status: Never smoker Tobacco Type: Smokeless Tobacco (Dip or Chew) Second Hand Exposure: No; Do You Dip or Chew Tobacco: Yes (1 can/day); Hx Alcohol Use: Yes Alcohol type: beer Hx Substance Use: No Preferred Language: Dutch Communication Ability: Effective Advertising Assistant Required: No Beliefs That Will Affect Care: None Current Living Situation: Significant Other current occupational status: employed Feels Safe at Home: Yes Assistive Devices: Glasses Allergies Allergies Allergy/AdvReac Type Severity Reaction Status Date / Time adhesive tape Allergy Intermediate Blister Verified 01/03/24 11:01 latex Allergy Intermediate Blister Verified 01/03/24 11:01 clarithromycin AdvReac Intermediate Depression Verified 01/03/24 11:01 penicillin V AdvReac Intermediate gi upset Verified 01/03/24 11:01 Home Meds Home Medications Medication Instructions Recorded Confirmed lisinopril 20 mg tablet 20 mg PO QAM 10/02/22 01/03/24 pramipexole 1 mg tablet 1 mg PO QPM 04/16/23 01/03/24 semaglutide 0.25 mg or 0.5 mg (2 0.5 mg subcut WK 04/16/23 01/03/24 mg/3 mL) subcutaneous pen injector (Ozempic) warfarin 5 mg tablet See Rx Instructions .Route .COMPLEX 04/16/23 01/03/24 acetaminophen 500 mg capsule 1,000 mg PO Q6H PRN Fever Or Pain 10/14/23 01/03/24 ciprofloxacin HCl 500 mg tablet 500 mg PO BID 01/03/24 01/03/24 (Cipro) metronidazole 500 mg tablet 500 mg PO TID 01/03/24 01/03/24 Results & Data (ED) Vital Signs Vital Signs - 24 hr 01/03/24 09:19 01/03/24 09:57 01/03/24 10:30 Temperature 36.9 C Temperature Source Oral Pulse Rate 87 83 75 Respiratory Rate 20 19 Respiratory Effort / Characteristics Non-Labored Spontaneous Respiratory Depth Normal Respiratory Pattern Regular Blood Pressure 115/75 117/68 Blood Pressure Mean 88 80 Pulse Oximetry 95 92 Oxygen Delivery Method Room Air Sepsis Recent Fever Within 48 Hours No Sepsis New/Unexplained Change in Mental Status N/A Sepsis Action Taken by Nursing No Action Required Home Medications Current Medication List: was personally reviewed by me Laboratory Data Attestation: I reviewed the patient's lab results. 01/03/24 09:39 01/03/24 09:39 Lab Results 01/03/24 01/03/24 Range/Units 09:39 11:17 WBC 5.63 (4.8-10.8) K/ul RBC 4.98 (4.70-6.10) M/uL Hgb 15.1 (14.0-18.0) g/dl Hct 44.7 (42.0-52.0) % MCV 89.8 (80.0-100.0) fL MCH 30.3 (25.0-34.0) pg MCHC 33.8 (32.0-36.0) g/dL RDW Std Deviation 41.3 (36.4-46.3) fL RDW Coeff of Melody 12.5 (11.5-14.5) % Plt Count 263 (130-400) K/uL MPV 8.7 L (9.4-12.4) fL Immature Gran % (Auto) 0.4 % Neut % (Auto) 64.3 % Lymph % (Auto) 22.0 % [place] % (Auto) 8.9 % Eos % (Auto) 3.9 % Baso % (Auto) 0.5 % Neut # (Auto) 3.62 (1.40-6.50) K/uL Lymph # (Auto) 1.24 (1.20-3.40) K/uL [place] # (Auto) 0.50 (0.11-0.59) K/uL Eos # (Auto) 0.22 (0.00-0.50) K/uL Baso # (Auto) 0.03 (0.00-0.20) K/uL Immature Gran # (Auto) 0.02 (0.01-0.20) K/uL PT 15.9 H (9.0-12.0) Seconds INR 1.5 H (0.9-1.1) APTT 33 H (21-31) Seconds PTT Ratio 1.2 Sodium 136 (136-145) mmol/L Potassium 4.0 (3.5-5.1) mmol/L Chloride 103 (98-107) mmol/L Carbon Dioxide 25 (21-32) mmol/L Anion Gap 8 (3-11) BUN 9 (6-23) mg/dl Creatinine 0.87 (0.6-1.4) mg/dl Est Cr Clr Drug Dosing 111.3 ml/min eGFR 99.40 BUN/Creatinine Ratio 10.3 (10-20) Glucose 181 H (70-99(Fasting)) mg/dl Calcium 9.1 (8.6-10.3) mg/dl Total Bilirubin 0.8 (0.2-1.0) mg/dl AST 21 (13-39) U/L ALT 30 (7-52) U/L Alkaline Phosphatase 66 (34-104) U/L Total Protein 7.6 (6.0-8.3) gm/dl Albumin 3.9 (3.4-5.0) gm/dl Globulin 3.7 (2.5-4.0) gm/dl Albumin/Globulin Ratio 1.1 (0.9-2) Lipase 41 (11-82) U/L Urine Color Dark Yellow Urine Appearance Clear (Clear) Urine pH 5.0 (4.5-7.5) Ur Specific [place] 1.024 (1.000-1.030) Urine Protein Trace H (Negative) Urine Glucose (UA) Negative (Negative) Urine Ketones Trace H (Negative) Urine Blood Negative (Negative) Urine Nitrite Negative (Negative) Urine Bilirubin Negative (Negative) Urine Urobilinogen Negative (Negative) Ur Leukocyte Esterase 1+ H (Negative) Urine WBC (Auto) 0-5 (0-5) /hpf Urine RBC (Auto) 0-2 (0-2) /hpf U Hyaline Cast (Auto) 3-5 H (0-2) /lpf U Epithel Cells (Auto) 0-2 (0-2) /hpf Urine Bacteria (Auto) None Seen (None Seen) Urine Mucus Present A (None Prsent) Administered Medications Discontinued Medications Ampicillin Sodium/Sulbactam Sodium (Unasyn) 3,000 mg in 100 mls @ 200 mls/hr IV NOW STA Stop: 01/03/24 12:29 Last Infusion: 01/03/24 12:59 Dose: Infused Documented By: Admin: 01/03/24 12:26 Dose: 200 mls/hr Documented By: ANT Morphine Sulfate (Morphine Sulfate 4 Mg/Ml 1 Ml Carp\\Vial) 4 mg IV NOW STA Stop: 01/03/24 09:44 Last Admin: 01/03/24 09:59 Dose: 4 mg Documented By: ANT Morphine Sulfate (Morphine Sulfate 4 Mg/Ml 1 Ml Carp\\Vial) 4 mg IV Q30M PRN PRN Reason: Pain Stop: 01/17/24 09:42 Last Admin: 01/03/24 10:52 Dose: 4 mg Documented By: ANT Ondansetron HCl (Ondansetron Inj 2 Mg/Ml 2 Ml Vial) 4 mg IV NOW STA Stop: 01/03/24 09:44 Last Admin: 01/03/24 09:59 Dose: 4 mg Documented By: ANT Imaging Data Radiologist's Impression: Abdomen/Pelvis CT 01/03/24 09:[address] WITHOUT CONTRAST CT DOSE: 1465.17 mGy.cm HISTORY: Acute left-sided flank pain with hematuria left flank pain, dark urine TECHNIQUE: Multiaxial CT images of the abdomen and pelvis were performed without contrast. A dose lowering technique was utilized adhering to the principles of ALARA. COMPARISON STUDY: 01/01/2024 FINDINGS: Mild cardiomegaly. Clear lung bases. No pneumatosis or pneumoperitoneum. The unenhanced spleen is unremarkable scattered calcifications redemonstrated. Unremarkable pancreas, gallbladder and adrenal glands. Hepatic steatosis. Surgical clips of the liver redemonstrated. Unchanged hyperdense focus adjacent to the posterior inferior right hepatic lobe on image 113 measuring 11 mm. 2.2 cm exophytic mixed attenuating lesion with macroscopic fat is unchanged suggestive of a treated lesion versus angiomyolipoma. 3 mm calcification the lateral interpolar right kidney. No ureteral calculi or hydronephrosis. Decompressed urinary bladder. Small fat filled left inguinal hernia. No abdominal aortic aneurysm or lymphadenopathy. No bowel obstruction or bowel wall thickening. Slightly decreased inflammation involving the acute diverticulitis of the proximal sigmoid. No abscess. Scattered large and small bowel air-fluid levels. The appendix is reportedly surgically absent. Fat filled periumbilical hernias measuring up to approximately 4 cm. No acute fracture. IMPRESSION: 1. Slight improvement of the acute sigmoid diverticulitis. 2. No bowel obstruction, abscess or pneumoperitoneum. 3. No ureteral calculi or hydronephrosis. 4. Hepatic steatosis. 5. Fat filled ventral abdominal wall hernias. 6. Additional findings as above. ACT 112: Negative or not required by law. The above report was generated using voice recognition software. It may contain grammatical, syntax or spelling errors. Electronically signed by: Daniel Abdi M.D. 01/03/2024 10:32 AM Discharge Plan Visit Data Chief Complaint: Hematuria Stated Complaint: BLOOD IN URINE, LOWER FLANK PAIN ON L ED Provider: Ezequiel Brooks Discharge Problem: Acute left flank pain, Left sided abdominal pain, Diverticulitis, Failure of outpatient treatment Patient Disposition: Admitted As Inpatient Condition: Good Forms Stand Alone Forms: [employer] Prescriptions Prescriptions: No Action acetaminophen 500 mg capsule 1,000 mg PO Q6H PRN (Reason: Fever Or Pain) lisinopril 20 mg Tablet 20 mg PO QAM pramipexole 1 mg tablet 1 mg PO QPM warfarin 5 mg tablet See Rx Instructions .ROUTE .COMPLEX Rx Instructions: TAKES 5 MG ON MON, WED, & FRI EVENING, THEN 7.5 MG ON SUN, TUES, THURS, & SAT EVENINGS. Ozempic 0.25 mg or 0.5 mg (2 mg/3 mL) pen injector 0.5 mg SUBCUT WK metronidazole [Flagyl] 500 mg Tablet 500 mg PO TID Rx Instructions: Start Date 01/01/24 x7 day supply ciprofloxacin HCl [Cipro] 500 mg Tablet 500 mg PO BID Rx Instructions: Start Date 01/01/24 x7 day supply Referrals Referrals: Rubi Kaufman, [Primary Care Provider] -
[2024-01-03 09:56] LABS: Basophils # (auto) 0.03 K/uL (0.00-0.20); Basophils % (auto) 0.5 %; Eosinophils # (auto) 0.22 K/uL (0.00-0.50); Eosinophils % (auto) 3.9 %; Hematocrit (blood only) 44.7 % (42.0-52.0); Hemoglobin 15.1 g/dl (14.0-18.0); Immature Granulocytes # (auto) 0.02 K/uL (0.01-0.20); Immature Granulocytes % (auto) 0.4 %; Lymphocytes # (auto) 1.24 K/uL (1.20-3.40); Mean Corpuscular Hemoglobin 30.3 pg (25.0-34.0); Mean Corpuscular Hgb Conc 33.8 g/dL (32.0-36.0); Mean Corpuscular Volume 89.8 fL (80.0-100.0); Mean Platelet Volume 8.7 fL (9.4-12.4); Monocytes % (auto) 8.9 %; Neutrophils # (auto) 3.62 K/uL (1.40-6.50); Neutrophils % (auto) 64.3 %; Platelet Count 263 K/uL (130-400); RDW Coefficient of Variation 12.5 % (11.5-14.5); RDW Standard Deviation 41.3 fL (36.4-46.3); Red Blood Count 4.98 M/uL (4.70-6.10); White Blood Count 5.63 K/ul (4.8-10.8)
[2024-01-03] MEDS: MoRPHine SULFATE 4 MG/ML 1 ML CARP\\VIAL IV STA (09:59)
[2024-01-03] MEDS: ONDANSETRON INJ 2 MG/ML 2 ML VIAL IV STA (09:59)
[2024-01-03 10:07] LABS: Albumin Globulin Ratio 1.1 (0.9-2); Albumin Level 3.9 gm/dl (3.4-5.0); BUN Creatinine Ratio 10.3 (10-20); Bilirubin,Total 0.8 mg/dl (0.2-1.0); Calcium 9.1 mg/dl (8.6-10.3); Creatinine Clr Calc Pharmacy 111.3 ml/min; Globulin 3.7 gm/dl (2.5-4.0); Total Protein 7.6 gm/dl (6.0-8.3)
[2024-01-03 10:21] LABS: INR 1.5 (0.9-1.1); Partial Thromboplastin Ratio 1.2; Partial Thromboplastin Time 33 Seconds (21-31); Prothrombin Time 15.9 Seconds (9.0-12.0)
--- NOTE | 2024-01-03 10:34 | CT Scan Report ---
ABDOMEN AND PELVIS CT WITHOUT CONTRAST CT DOSE: 1465.17 mGy.cm HISTORY: Acute left-sided flank pain with hematuria left flank pain, dark urine TECHNIQUE: Multiaxial CT images of the abdomen and pelvis were performed without contrast. A dose lo wering technique was utilized adhering to the principles of ALARA. COMPARISON STUDY: 01/01/2024 FINDINGS: Mild cardiomegaly. Clear lung bases. No pneumatosis or pneumoperitoneum. The unenhanced spl een is unremarkable scattered calcifications redemonstrated. Unremarkable pancreas, gallbladder and a drenal glands. Hepatic steatosis. Surgical clips of the liver redemonstrated. Unchanged hyperdense fo cus adjacent to the posterior inferior right hepatic lobe on image 113 measuring 11 mm. 2.2 cm exophytic mixed attenuating lesion with macroscopic fat is unchanged suggestive of a treated l esion versus angiomyolipoma. 3 mm calcification the lateral interpolar right kidney. No ureteral calc merly or hydronephrosis. Decompressed urinary bladder. Small fat filled left inguinal hernia. No abdomi nal aortic aneurysm or lymphadenopathy. No bowel obstruction or bowel wall thickening. Slightly decre ased inflammation involving the acute diverticulitis of the proximal sigmoid. No abscess. Scattered l arge and small bowel air-fluid levels. The appendix is reportedly surgically absent. Fat filled periu mbilical hernias measuring up to approximately 4 cm. No acute fracture. IMPRESSION: 1. Slight improvement of the acute sigmoid diverticulitis. 2. No bowel obstruction, abscess or pneumoperitoneum. 3. No ureteral calculi or hydronephrosis. 4. Hepatic steatosis. 5. Fat filled ventral abdominal wall hernias. 6. Additional findings as above. ACT 112: Negative or not required by law. The above report was generated using voice recognition software. It may contain grammatical, syntax o r spelling errors. Electronically signed by: Daniel Abdi M.D. 01/03/2024 10:32 AM
[2024-01-03] MEDS: MoRPHine SULFATE 4 MG/ML 1 ML CARP\\VIAL IV PRN (10:52)
[2024-01-03 12:05] LABS: Appearance Urine Clear (Clear); Bacteria Urine Automated None Seen (None Seen); Bilirubin Urine Negative (Negative); Blood Urine Negative (Negative); Color Urine Dark Yellow; Epithelial Cell Urine Auto 0-2 /hpf (0-2); Glucose Urine UA Negative (Negative); Ketones Urine Trace (Negative); Leukocyte Esterase Urine 1+ (Negative); Mucus Urine Present (None Prsent); Nitrite Urine Negative (Negative); Protein Urine Trace (Negative); RBC Urine Automated 0-2 /hpf (0-2); Specific Gravity Urine 1.024 (1.000-1.030); Urobilinogen Urine Negative (Negative); WBC Urine Automated 0-5 /hpf (0-5)
[2024-01-03] MEDS: AMPICILLIN/SULBACTAM SOD 3,000 MG/100 ML BAG IV STA (12:26)
[2024-01-03] MEDS ORDERED: MoRPHine SULFATE 4 MG/ML 1 ML CARP\\VIAL IV PRN (13:12)
--- NOTE | 2024-01-03 13:13 | History & Physical Report ---
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 -warfarin, INR daily to reach therapeutic level -daily labs #ISABELA on bipap -BIPAP QHS #DM2 -hold ozempic #Nonobstructive CAD #GERD -home meds No DVT ppx given therapeutic a/c History of Present Illness Chief Complaint: abdominal pain Primary Care Provider: Rubi Kaufman, DO 58M pmh nonobstructive CAD, hypercoagulable state (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 Patient presented to the ED with abd pain 4d ago found to have diverticulitis and was d/c with cipro and flagyl. Represented today with continued abdominal pain without improvement. Given morphine IV in the ED which improved his symptoms. On my evaluation patient continues to endorse L flank pain as well as bilateral lower abdominal pain, approximately 4/10 in intensity. Also endorses nausea, has not been able to keep any food down. No other symptoms. Allergies Allergy/AdvReac Type Severity Reaction Status Date / Time adhesive tape Allergy Intermediate Blister Verified 01/03/24 11:01 latex Allergy Intermediate Blister Verified 01/03/24 11:01 clarithromycin AdvReac Intermediate Depression Verified 01/03/24 11:01 penicillin V AdvReac Intermediate gi upset Verified 01/03/24 11:01 Home Medications Medication Instructions Recorded Confirmed Type lisinopril 20 mg tablet 20 mg PO QAM 10/02/22 01/03/24 History pramipexole 1 mg tablet 1 mg PO QPM 04/16/23 01/03/24 History semaglutide 0.25 mg or 0.5 mg (2 0.5 mg subcut WK 04/16/23 01/03/24 History mg/3 mL) subcutaneous pen injector (Ozempic) warfarin 5 mg tablet See Rx Instructions .Route .COMPLEX 04/16/23 01/03/24 History acetaminophen 500 mg capsule 1,000 mg PO Q6H PRN Fever Or Pain 10/14/23 01/03/24 History ciprofloxacin HCl 500 mg tablet 500 mg PO BID 01/03/24 01/03/24 History (Cipro) metronidazole 500 mg tablet 500 mg PO TID 01/03/24 01/03/24 History Past Med/Surg History Problem List (Updated 01/01/24 @ 01:18 by Radha Lora PA-C) Subtherapeutic international normalized ratio (INR) (Acute) Fever (Acute) Acute diverticulitis (Acute) Lumbosacral facet joint syndrome Other cervical disc degeneration at C6-C7 level Other cervical disc degeneration at C5-C6 level Cubital tunnel syndrome Disc degeneration, lumbosacral S/P arthroscopy of shoulder Rotator cuff tear Calcific tendinitis Biceps tendinitis Gastrocnemius muscle tear Leg pain, posterior Swelling of calf Pain of right calf (Acute) RLS (restless legs syndrome) DVT prophylaxis Chest pain (Acute) Shelton esophagus (Chronic) Adenocarcinoma, renal cell (Chronic) "2016 - Follows with [facility] currently. Clear cell adenocarcinoma R kidney. 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 Hypertension Degenerative disc disease, lumbar L5 Surgical History S/P wisdom tooth extraction History of splenectomy History of cholecystectomy History of appendectomy History of colonoscopy History of esophagogastroduodenoscopy (EGD) Family History Other No pertinent family history Social History Smoking Status: Never smoker Tobacco Type: Smokeless Tobacco (Dip or Chew) Second Hand Exposure: No; Do You Dip or Chew Tobacco: Yes (1 can/day); Hx Alcohol Use: Yes Alcohol type: beer Hx Substance Use: No Preferred Language: Sri Lankan Communication Ability: Effective Health Club Manager Required: No Beliefs That Will Affect Care: None Current Living Situation: Significant Other current occupational status: employed Feels Safe at Home: Yes Assistive Devices: Glasses Review of Systems Constitutional: no fever, no chills, no sweats, no body aches and no malaise Gastrointestinal: + abdominal pain and + nausea; no heartb urn and no vomiting Physical Exam Constitutional: WD/WN, vitals as above Gastrointestinal (Abdomen): as above, some guarding in the L flank and bilateral lower abdomen. tender to palpation. Psychiatric: A+Ox3, euthymic affect Results & Data Results & Data Vital Signs (Past 12 Hours) Vital Signs Temp Pulse Resp BP Pulse Ox O2 Del Method 01/03/24 10:30 75 19 117/68 92 01/03/24 09:57 83 01/03/24 09:19 36.9 C 87 20 115/75 95 Room Air Laboratory Results Abnormal lab results 01/03/24 01/03/24 Range/Units 09:39 11:17 MPV 8.7 L (9.4-12.4) fL PT 15.9 H (9.0-12.0) Seconds INR 1.5 H (0.9-1.1) APTT 33 H (21-31) Seconds Glucose 181 H (70-99(Fasting)) mg/dl Urine Protein Trace H (Negative) Urine Ketones Trace H (Negative) Ur Leukocyte Esterase 1+ H (Negative) U Hyaline Cast (Auto) 3-5 H (0-2) /lpf Urine Mucus Present A (None Prsent) Diagnostic Findings Abdomen/Pelvis CT 01/03/24 09:[address] WITHOUT CONTRAST CT DOSE: 1465.17 mGy.cm HISTORY: Acute left-sided flank pain with hematuria left flank pain, dark urine TECHNIQUE: Multiaxial CT images of the abdomen and pelvis were performed without contrast. A dose lowering technique was utilized adhering to the principles of ALARA. COMPARISON STUDY: 01/01/2024 FINDINGS: Mild cardiomegaly. Clear lung bases. No pneumatosis or pneumoperitoneum. The unenhanced spleen is unremarkable scattered calcifications redemonstrated. Unremarkable pancreas, gallbladder and adrenal glands. Hepatic steatosis. Surgical clips of the liver redemonstrated. Unchanged hyperdense focus adjacent to the posterior inferior right hepatic lobe on image 113 measuring 11 mm. 2.2 cm exophytic mixed attenuating lesion with macroscopic fat is unchanged suggestive of a treated lesion versus angiomyolipoma. 3 mm calcification the lateral interpolar right kidney. No ureteral calculi or hydronephrosis. Decompressed urinary bladder. Small fat filled left inguinal hernia. No abdominal aortic aneurysm or lymphadenopathy. No bowel obstruction or bowel wall thickening. Slightly decreased inflammation involving the acute diverticulitis of the proximal sigmoid. No abscess. Scattered large and small bowel air-fluid levels. The appendix is reportedly surgically absent. Fat filled periumbilical hernias measuring up to approximately 4 cm. No acute fracture. IMPRESSION: 1. Slight improvement of the acute sigmoid diverticulitis. 2. No bowel obstruction, abscess or pneumoperitoneum. 3. No ureteral calculi or hydronephrosis. 4. Hepatic steatosis. 5. Fat filled ventral abdominal wall hernias. 6. Additional findings as above. ACT 112: Negative or not required by law. The above report was generated using voice recognition software. It may contain grammatical, syntax or spelling errors. Electronically signed by: Daniel Abdi M.D. 01/03/2024 10:32 AM Code Status & VTE Plan VTE Prophylaxis Plan VTE Prophylaxis will be ordered: No Reason for no VTE drug order: Drug interaction
[2024-01-03] MEDS ORDERED: STANDARD WARFARIN NOMOGRAM SCH (14:00)
[2024-01-03] MEDS ORDERED: MELATONIN 3 MG TAB PO PRN (14:54)
[2024-01-03] MEDS: SODIUM CHLORIDE 0.9% 1,000 ML IV SCH (15:02)
[2024-01-03] MEDS: ACETAMINOPHEN 500 MG TAB PO PRN (15:02)
[2024-01-03] MEDS: metroNIDAZOLE 500 MG/100 ML BAG IV SCH (15:20)
[2024-01-03] MEDS: WARFARIN SOD 7.5 MG TAB PO SCH (16:37)
[2024-01-03] MEDS: CIPROFLOXACIN / D5W 400 MG/200 ML BAG IV SCH (16:40)
[2024-01-03] MEDS: ENOXAPARIN INJ 120 MG/0.8 ML SYR SQ SCH (16:42)
[2024-01-03] MEDS: PRAMIPEXOLE DIHYDROCHLO 0.5 MG TAB PO SCH (21:06)
[2024-01-04] MEDS: ONDANSETRON INJ 2 MG/ML 2 ML VIAL IV PRN ×2 (03:15→09:19)
[2024-01-04 07:50] LABS: Basophils # (auto) 0.03 K/uL (0.00-0.20); Basophils % (auto) 0.6 %; Eosinophils # (auto) 0.24 K/uL (0.00-0.50); Eosinophils % (auto) 4.7 %; Hematocrit (blood only) 40.6 % (42.0-52.0); Hemoglobin 13.8 g/dl (14.0-18.0); Immature Granulocytes # (auto) 0.02 K/uL (0.01-0.20); Immature Granulocytes % (auto) 0.4 %; Lymphocytes # (auto) 1.16 K/uL (1.20-3.40); Lymphocytes % (auto) 22.6 %; Mean Corpuscular Hemoglobin 30.2 pg (25.0-34.0); Mean Corpuscular Volume 88.8 fL (80.0-100.0); Mean Platelet Volume 8.7 fL (9.4-12.4); Monocytes % (auto) 9.7 %; Neutrophils # (auto) 3.18 K/uL (1.40-6.50); Platelet Count 246 K/uL (130-400); RDW Coefficient of Variation 12.4 % (11.5-14.5); RDW Standard Deviation 40.3 fL (36.4-46.3); Red Blood Count 4.57 M/uL (4.70-6.10); White Blood Count 5.13 K/ul (4.8-10.8)
[2024-01-04 07:57] LABS: Albumin Globulin Ratio 1.1 (0.9-2); Albumin Level 3.4 gm/dl (3.4-5.0); BUN Creatinine Ratio 9.1 (10-20); Bilirubin,Total 0.6 mg/dl (0.2-1.0); Calcium 8.5 mg/dl (8.6-10.3); Potassium 4.1 mmol/L (3.5-5.1); Total Protein 6.4 gm/dl (6.0-8.3)
[2024-01-04 08:06] LABS: INR 1.8 (0.9-1.1); Prothrombin Time 18.4 Seconds (9.0-12.0)
[2024-01-04] MEDS: lisinopril 20 MG TAB PO SCH (08:28)
[2024-01-04] MEDS: HYDROCODONE/ACETAMOPHEN 5/325MG TAB PO PRN (09:22)
--- NOTE | 2024-01-04 12:26 | Gastrointestinal Consultation ---
Date of Consultation January 04, 2024 Assessment & Plan (1) Pulmonary embolism: (2) S/P rotator cuff surgery: (3) H/O sinus surgery: (4) Diverticulitis: He did not respond to oral antibiotics but is already feeling somewhat improved with the IV antibiotics. His CT scan seems marginally improved. Plan Would continue IV antibiotics likely for a total of 3 days and trend WBC. If he clinically improves and his WBC does not escalate then can switch to po antibiotics and would give a somewhat longer course ie 10-14 day total IV + po. Also as he improves can advance to soft diet and continue this for several weeks after completing antibiotic regimen. If he does not improve or clinically deteriorates then he may require surgery. He can follow up with his own GI he sees regularly for his Shelton's as usually a follow up colonoscopy is recommended 1 month after completing antibiotics although he had a colonoscopy this year already. Discussed with patient. IP GI Service will sign off. History of Present Illness Reason for Consultation: Diverticulitis Requesting Physician: Rashaad Lomax Attending Physician: Alondra Hanley MD History of Present Illness 58 yo WM developed abdominal pain and was found to have diverticulitis by imaging. He was given oral antibiotics but after two days was not feeling better and came into the hospital. He was reimaged and again there were findings of acute sigmoid diverticulitis perhaps slightly improved from his first CT. He was placed on IV antibiotics and is starting to feel improved. Allergies Allergy/AdvReac Type Severity Reaction Status Date / Time adhesive tape Allergy Intermediate Blister Verified 01/03/24 11:01 latex Allergy Intermediate Blister Verified 01/03/24 11:01 clarithromycin AdvReac Intermediate Depression Verified 01/03/24 11:01 penicillin V AdvReac Intermediate gi upset Verified 01/03/24 11:01 Home Medications Medication Instructions Recorded Confirmed Type lisinopril 20 mg tablet 20 mg PO QAM 10/02/22 01/03/24 History pramipexole 1 mg tablet 1 mg PO QPM 04/16/23 01/03/24 History semaglutide 0.25 mg or 0.5 mg (2 0.5 mg subcut WK 04/16/23 01/03/24 History mg/3 mL) subcutaneous pen injector (Ozempic) warfarin 5 mg tablet See Rx Instructions .Route .COMPLEX 04/16/23 01/03/24 History acetaminophen 500 mg capsule 1,000 mg PO Q6H PRN Fever Or Pain 10/14/23 01/03/24 History ciprofloxacin HCl 500 mg tablet 500 mg PO BID 01/03/24 01/03/24 History (Cipro) metronidazole 500 mg tablet 500 mg PO TID 01/03/24 01/03/24 History Patient History Medical History (Updated 01/04/24 @ 12:25 by Silas Beckett MD) Shelton's esophagus determined by biopsy Adenocarcinoma, 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 Clear cell adenocarcinoma R kidney. [place] [facility] [place] Pulmonary embolism x 3, none since coumadin Low back pain Myocardial Infarction 2016, may have had "mild [place]" and chest pain but does not remember details, saw a [facility] rivet tosser for a few years but no longer required f/u. Hypertension Degenerative disc disease, lumbar L5 Surgical History (Updated 01/04/24 @ 12:22 by Silas Beckett MD) H/O sinus surgery History of rotator cuff surgery S/P rotator cuff surgery S/P wisdom tooth extraction History of splenectomy History of cholecystectomy History of appendectomy History of colonoscopy History of esophagogastroduodenoscopy (EGD) Family History Other No pertinent family history Social History Smoking Status: Never smoker Tobacco Type: Smokeless Tobacco (Dip or Chew) Second Hand Exposure: No; Do You Dip or Chew Tobacco: Yes (1 can/day); Hx Alcohol Use: Yes Alcohol type: beer Hx Substance Use: No Preferred Language: Estonian Communication Ability: Effective Lacer And Tier Required: No Beliefs That Will Affect Care: None Current Living Situation: Spouse current occupational status: employed Other Information That Helps Us Care for You: No Feels Safe at Home: Yes Safety Concerns: Feels Safe At This Time Assistive Devices: Glasses Review of Systems Review of Systems: Negative except for HPI and below Gastrointestinal: C/O lower abdominal pain on L Nausea intermittently but no vomiting Physical Exam Physical Exam: WD WN WM NAD Constitutional: Afebrile VSS Eyes: Sclera anicteric Conjunctiva not pale Respiratory: Clear Cardiovascular: Reg Gastrointestinal (Abdomen): NL BS, soft, tender mostly LLQ but no guarding or rebound Musculoskeletal: LEs without CCE Neurologic: A/O Results & Data Vital Signs (Past 12 Hours) Vital Signs Temp Pulse Resp BP Pulse Ox O2 Del Method 01/04/24 07:20 37.0 C 79 16 119/74 95 Room Air PG Care Time/CCT Total # of Minutes Spent Total Time Spent with Patient: Total time spent is greater than 50% in coordination of care (as documented) at patient's floor/unit and/or counseling patient: Coding Level of Care Code 72250 IN/OBS CONSULT LVL 4,60M Diagnoses Pulmonary embolism I26.99 S/P rotator cuff surgery Z98.890 H/O sinus surgery Z98.890 Diverticulitis K57.92
--- NOTE | 2024-01-04 14:53 | Hospitalist Progress Note ---
Date of Service January 04, 2024 Assessment & Plan (1) Diverticulitis: (2) Left sided abdominal pain: (3) RLS (restless legs syndrome): (4) Myocardial Infarction: (5) Hypertension: (6) Shelton's esophagus determined by biopsy: Plan Assessment and plan: Acute diverticulitis: Started on oral Flagyl/Cipro 4 days prior to admission with no improvement GI consulted, recommending continue IV antibiotics x 3 days and continue to trend WBC If continues to clinically improvecan switch to p.o. antibiotics for at least 10-14 days Advance diet as tolerated to soft and continue soft diet for several weeks after If no improvement, may require surgery, follow-up with outpatient GI Follow-up colonoscopy recommended 1 month after resolution Hx HTN: Continue lisinopril Hx DM2: Reports his A1c recently was 6.8, will recheck Hold Ozempic, SSI/4 times daily BGM Hx hypercoagulable state/multiple PEs Continue warfarin, INR subtherapeutic, had some hematuria earlier this week Continue home dose of warfarin, consider increasing if INR still subtherapeutic tomorrow A total of 45 minutes was spent on chart review/reviewing diagnostic data/facilitating plan of care/discussion with consultants Patient is a DNR/DNI DVT prophylaxis: Warfarin Admission and Anticipated Discharge Date Admission Date: January 03, 2024 Supervising Physician Co-Signing Physician Notes 58-year-old male with PMH of nonobstructive CAD, hypercoagulable state [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 GI evaluated the patient. Continue Cipro and Flagyl IV for 3 days per GI recommendation, then to p.o. antibiotic. Follow-up colonoscopy in 6 to 8 weeks time. Follow-up with GI as an outpatient. Continue home warfarin, monitor H&H [patient complained of hematuria]. On exam: Patient on room air, NAD, left lower quadrant tender noted. Rest of the examination as above. Plan impression:. 20 minutes I have seen and examined the patient and have discussed the case with the provider above. I agree with the assessment and plan as stated. Subjective Patient seen and examined. No apparent distress. Reports his pain is slightly better today. Review of Systems Review of Systems: All systems reviewed & are unremarkable except as noted in HPI & below Physical Exam Constitutional: WD/WN, vitals as above Eyes: PERRL, conjunctivae normal, anicteric sclerae ENMT: external ear and nose normal, oropharynx normal Neck: trachea midline, no thyromegaly Respiratory: normal respiratory effort, lungs clear to auscultation Cardiovascular: RRR, no murmur, no edema Gastrointestinal (Abdomen): normal bowel sounds, soft, nontender, no hepatosplenomegaly Musculoskeletal: no cyanosis or clubbing, extremities motor strength 5/5 Skin: no rashes, warm and dry Neurologic: PERRL, EOMI, accommodation nl, no face palsy, no dysarthria Lymphatic: no cervical or axillary lymphadenopathy Results & Data Results & Data Vital Signs (Past 12 Hours) Vital Signs Temp Pulse Resp BP Pulse Ox O2 Del Method 01/04/24 14:08 36.5 C 79 17 129/78 96 Room Air 01/04/24 07:20 37.0 C 79 16 119/74 95 Room Air Diagnostic Findings Laboratory Results WBC 5.13 K/ul (4.8-10.8) 01/04/24 07:23 RBC 4.57 M/uL (4.70-6.10) L 01/04/24 07:23 Hgb 13.8 g/dl (14.0-18.0) L 01/04/24 07:23 Hct 40.6 % (42.0-52.0) L 01/04/24 07:23 MCV 88.8 fL (80.0-100.0) 01/04/24 07:23 MCH 30.2 pg (25.0-34.0) 01/04/24 07:23 MCHC 34.0 g/dL (32.0-36.0) 01/04/24 07:23 RDW Std Deviation 40.3 fL (36.4-46.3) 01/04/24 07:23 RDW Coeff of Melody 12.4 % (11.5-14.5) 01/04/24 07:23 Plt Count 246 K/uL (130-400) 01/04/24 07:23 MPV 8.7 fL (9.4-12.4) L 01/04/24 07:23 Immature Gran % (Auto) 0.4 % 01/04/24 07:23 Neut % (Auto) 62.0 % 01/04/24 07:23 Lymph % (Auto) 22.6 % 01/04/24 07:23 Porter % (Auto) 9.7 % 01/04/24 07:23 Eos % (Auto) 4.7 % 01/04/24 07:23 Baso % (Auto) 0.6 % 01/04/24 07:23 Neut # (Auto) 3.18 K/uL (1.40-6.50) 01/04/24 07:23 Lymph # (Auto) 1.16 K/uL (1.20-3.40) L 01/04/24 07:23 Porter # (Auto) 0.50 K/uL (0.11-0.59) 01/04/24 07:23 Eos # (Auto) 0.24 K/uL (0.00-0.50) 01/04/24 07:23 Baso # (Auto) 0.03 K/uL (0.00-0.20) 01/04/24 07:23 Immature Gran # (Auto) 0.02 K/uL (0.01-0.20) 01/04/24 07:23 ESR 47 mm/hr (0-20) H 01/04/24 07:23 PT 18.4 Seconds (9.0-12.0) H 01/04/24 07:23 INR 1.8 (0.9-1.1) H 01/04/24 07:23 APTT 33 Seconds (21-31) H 01/03/24 09:39 PTT Ratio 1.2 01/03/24 09:39 Sodium 135 mmol/L (136-145) L 01/04/24 07:23 Potassium 4.1 mmol/L (3.5-5.1) 01/04/24 07:23 Chloride 104 mmol/L (98-107) 01/04/24 07:23 Carbon Dioxide 27 mmol/L (21-32) 01/04/24 07:23 Anion Gap 4 (3-11) 01/04/24 07:23 BUN 8 mg/dl (6-23) 01/04/24 07:23 Creatinine 0.88 mg/dl (0.6-1.4) 01/04/24 07:23 Est Cr Clr Drug Dosing 110.0 ml/min 01/04/24 07:23 eGFR 99.05 01/04/24 07:23 BUN/Creatinine Ratio 9.1 (10-20) L 01/04/24 07:23 Glucose 120 mg/dl (70-99(Fasting)) H 01/04/24 07:23 Calcium 8.5 mg/dl (8.6-10.3) L 01/04/24 07:23 Total Bilirubin 0.6 mg/dl (0.2-1.0) 01/04/24 07:23 AST 17 U/L (13-39) 01/04/24 07:23 ALT 24 U/L (7-52) 01/04/24 07:23 Alkaline Phosphatase 56 U/L (34-104) 01/04/24 07:23 Total Protein 6.4 gm/dl (6.0-8.3) 01/04/24 07:23 Albumin 3.4 gm/dl (3.4-5.0) 01/04/24 07:23 Globulin 3.0 gm/dl (2.5-4.0) 01/04/24 07:23 Albumin/Globulin Ratio 1.1 (0.9-2) 01/04/24 07:23 Lipase 41 U/L (11-82) 01/03/24 09:39 Urine Color Dark Yellow 01/03/24 11:17 Urine Appearance Clear (Clear) 01/03/24 11:17 Urine pH 5.0 (4.5-7.5) 01/03/24 11:17 Ur Specific [place] 1.024 (1.000-1.030) 01/03/24 11:17 Urine Protein Trace (Negative) H 01/03/24 11:17 Urine Glucose (UA) Negative (Negative) 01/03/24 11:17 Urine Ketones Trace (Negative) H 01/03/24 11:17 Urine Blood Negative (Negative) 01/03/24 11:17 Urine Nitrite Negative (Negative) 01/03/24 11:17 Urine Bilirubin Negative (Negative) 01/03/24 11:17 Urine Urobilinogen Negative (Negative) 01/03/24 11:17 Ur Leukocyte Esterase 1+ (Negative) H 01/03/24 11:17 Urine WBC (Auto) 0-5 /hpf (0-5) 01/03/24 11:17 Urine RBC (Auto) 0-2 /hpf (0-2) 01/03/24 11:17 U Hyaline Cast (Auto) 3-5 /lpf (0-2) H 01/03/24 11:17 U Epithel Cells (Auto) 0-2 /hpf (0-2) 01/03/24 11:17 Urine Bacteria (Auto) None Seen (None Seen) 01/03/24 11:17 Urine Mucus Present (None Prsent) A 01/03/24 11:17 Impressions Abdomen/Pelvis CT 01/03/24 09:[address] WITHOUT CONTRAST CT DOSE: 1465.17 mGy.cm HISTORY: Acute left-sided flank pain with hematuria left flank pain, dark urine TECHNIQUE: Multiaxial CT images of the abdomen and pelvis were performed without contrast. A dose lowering technique was utilized adhering to the principles of ALARA. COMPARISON STUDY: 01/01/2024 FINDINGS: Mild cardiomegaly. Clear lung bases. No pneumatosis or pneumoperitoneum. The unenhanced spleen is unremarkable scattered calcifications redemonstrated. Unremarkable pancreas, gallbladder and adrenal glands. Hepatic steatosis. Surgical clips of the liver redemonstrated. Unchanged hyperdense focus adjacent to the posterior inferior right hepatic lobe on image 113 measuring 11 mm. 2.2 cm exophytic mixed attenuating lesion with macroscopic fat is unchanged suggestive of a treated lesion versus angiomyolipoma. 3 mm calcification the lateral interpolar right kidney. No ureteral calculi or hydronephrosis. Decompressed urinary bladder. Small fat filled left inguinal hernia. No abdominal aortic aneurysm or lymphadenopathy. No bowel obstruction or bowel wall thickening. Slightly decreased inflammation involving the acute diverticulitis of the proximal sigmoid. No abscess. Scattered large and small bowel air-fluid levels. The appendix is reportedly surgically absent. Fat filled periumbilical hernias measuring up to approximately 4 cm. No acute fracture. IMPRESSION: 1. Slight improvement of the acute sigmoid diverticulitis. 2. No bowel obstruction, abscess or pneumoperitoneum. 3. No ureteral calculi or hydronephrosis. 4. Hepatic steatosis. 5. Fat filled ventral abdominal wall hernias. 6. Additional findings as above. ACT 112: Negative or not required by law. The above report was generated using voice recognition software. It may contain grammatical, syntax or spelling errors. Electronically signed by: Daniel Abdi M.D. 01/03/2024 10:32 AM
[2024-01-04 15:17] LABS: INR 1.9 (0.9-1.1); Prothrombin Time 19.4 Seconds (9.0-12.0)
[2024-01-04] MEDS ORDERED: DEXTROSE 50% 50 ML SYRINGE IV PRN (15:19)
[2024-01-04] MEDS ORDERED: GLUCAGON FOR INJ 1 MG VIAL SQ PRN (15:19)
[2024-01-04] MEDS ORDERED: GLUCOSE 40% GEL 15 GM TUBE PO PRN (15:19)
[2024-01-04] MEDS ORDERED: GLUCOSE 10 TAB/TUBE PO PRN (15:19)
[2024-01-04] MEDS ORDERED: CARBOHYDRATES FOR HYPOGLYCEMIA PO PRN (15:19)
[2024-01-04] MEDS: INSULIN ASPART PER UNIT CHARGE SC SCH (18:03)
[2024-01-05] MEDS: NYSTATIN POWDER 15GM BTL EXT SCH (00:52)
[2024-01-05 06:47] LABS: Hemoglobin 13.9 g/dl (14.0-18.0); Mean Corpuscular Hgb Conc 33.1 g/dL (32.0-36.0); Mean Corpuscular Volume 90.5 fL (80.0-100.0); Mean Platelet Volume 8.4 fL (9.4-12.4); Platelet Count 238 K/uL (130-400); RDW Coefficient of Variation 12.3 % (11.5-14.5); RDW Standard Deviation 41.2 fL (36.4-46.3); Red Blood Count 4.64 M/uL (4.70-6.10); White Blood Count 5.08 K/ul (4.8-10.8)
[2024-01-05 07:16] LABS: Albumin Globulin Ratio 1.1 (0.9-2); Albumin Level 3.4 gm/dl (3.4-5.0); BUN Creatinine Ratio 6.2 (10-20); Bilirubin,Total 0.5 mg/dl (0.2-1.0); Calcium 8.6 mg/dl (8.6-10.3); Creatinine Clr Calc Pharmacy 99.8 ml/min; Potassium 3.9 mmol/L (3.5-5.1); Total Protein 6.4 gm/dl (6.0-8.3)
[2024-01-05 07:19] LABS: INR 2.2 (0.9-1.1); Prothrombin Time 22.5 Seconds (9.0-12.0)
[2024-01-05 08:32] LABS: Estimated Average Glucose 128 mg/dl; Hemoglobin A1C 6.1 % (4.5-5.6)
[2024-01-05] MEDS: PIPERACILLIN/TAZOBACTAM 4.5 GM/100 ML BAG IV ONE (11:37)
[2024-01-05] MEDS: INFLUENZA VACC TS2024-25(6m+)/PF (IIV3) 0.5mL Syr IM ONE (11:42)
--- NOTE | 2024-01-05 15:11 | Hospitalist Progress Note ---
Date of Service January 05, 2024 Assessment & Plan (1) Diverticulitis: (2) Left sided abdominal pain: (3) RLS (restless legs syndrome): (4) Myocardial Infarction: (5) Hypertension: (6) Shelton's esophagus determined by biopsy: Plan Assessment and plan: Acute diverticulitis: Started on oral Flagyl/Cipro 4 days prior to admission with no improvement GI consulted, recommending continue IV antibiotics x 3 days and continue to trend WBC If continues to clinically improvecan switch to p.o. antibiotics for at least 10-14 days Advance diet as tolerated to soft and continue soft diet for several weeks after If no improvement, may require surgery, follow-up with outpatient GI Follow-up colonoscopy recommended 1 month after resolution 01/04: Patient reports feeling about the same as yesterday. Will trial IV Zosyn over the next 24 hours If no improvement tomorrow, will consult general surgery for further recs Hx HTN: Continue lisinopril Hx DM2: Reports his A1c recently was 6.8, will rechecknow 6.1 Hold Ozempic, SSI/4 times daily BGM Hx hypercoagulable state/multiple PEs Continue warfarin, hematuria resolved, INR therapeutic today A total of 45 minutes was spent on chart review/reviewing diagnostic data/facilitating plan of care/discussion with consultants Patient is a DNR/DNI DVT prophylaxis: Warfarin Admission and Anticipated Discharge Date Admission Date: January 05, 2024 Supervising Physician Co-Signing Physician Notes Pt not seen personally, d/w [employer], plan to switch to zosyn as pt not improving w/ regard to his belly pain (not worsening as well) w/ pt's permission if his past experience w/ penicillin is more of a side effect rather than allergic reaction. If no improvement in pain, plan for gen sx consult. time spent: 5 min. Subjective Patient seen and examined. No apparent distress. Reports his pain is slightly better today. Review of Systems Review of Systems: All systems reviewed & are unremarkable except as noted in HPI & below Physical Exam Constitutional: WD/WN, vitals as above Eyes: PERRL, conjunctivae normal, anicteric sclerae ENMT: external ear and nose normal, oropharynx normal Neck: trachea midline, no thyromegaly Respiratory: normal respiratory effort, lungs clear to auscultation Cardiovascular: RRR, no murmur, no edema Gastrointestinal (Abdomen): normal bowel sounds, soft, nontender, no hepatosplenomegaly (Left-sided abdominal pain) Musculoskeletal: no cyanosis or clubbing, extremities motor strength 5/5 Skin: no rashes, warm and dry Neurologic: PERRL, EOMI, accommodation nl, no face palsy, no dysarthria Psychiatric: A+Ox3, euthymic affect Results & Data Results & Data Vital Signs (Past 12 Hours) Vital Signs Temp Pulse Resp BP Pulse Ox O2 Del Method 01/05/24 14:27 36.6 C 71 16 130/73 94 Room Air 01/05/24 08:30 Room Air 01/05/24 07:31 36.6 C 66 16 118/73 96 Room Air Diagnostic Findings Laboratory Results WBC 5.08 K/ul (4.8-10.8) 01/05/24 06:27 RBC 4.64 M/uL (4.70-6.10) L 01/05/24 06:27 Hgb 13.9 g/dl (14.0-18.0) L 01/05/24 06:27 Hct 42.0 % (42.0-52.0) 01/05/24 06:27 MCV 90.5 fL (80.0-100.0) 01/05/24 06:27 MCH 30.0 pg (25.0-34.0) 01/05/24 06:27 MCHC 33.1 g/dL (32.0-36.0) 01/05/24 06:27 RDW Std Deviation 41.2 fL (36.4-46.3) 01/05/24 06:27 RDW Coeff of Melody 12.3 % (11.5-14.5) 01/05/24 06:27 Plt Count 238 K/uL (130-400) 01/05/24 06:27 MPV 8.4 fL (9.4-12.4) L 01/05/24 06:27 Immature Gran % (Auto) 0.4 % 01/04/24 07:23 Neut % (Auto) 62.0 % 01/04/24 07:23 Lymph % (Auto) 22.6 % 01/04/24 07:23 [place] % (Auto) 9.7 % 01/04/24 07:23 Eos % (Auto) 4.7 % 01/04/24 07:23 Baso % (Auto) 0.6 % 01/04/24 07:23 Neut # (Auto) 3.18 K/uL (1.40-6.50) 01/04/24 07:23 Lymph # (Auto) 1.16 K/uL (1.20-3.40) L 01/04/24 07:23 [place] # (Auto) 0.50 K/uL (0.11-0.59) 01/04/24 07:23 Eos # (Auto) 0.24 K/uL (0.00-0.50) 01/04/24 07:23 Baso # (Auto) 0.03 K/uL (0.00-0.20) 01/04/24 07:23 Immature Gran # (Auto) 0.02 K/uL (0.01-0.20) 01/04/24 07:23 ESR 47 mm/hr (0-20) H 01/04/24 07:23 PT 22.5 Seconds (9.0-12.0) H 01/05/24 06:27 INR 2.2 (0.9-1.1) H 01/05/24 06:27 APTT 33 Seconds (21-31) H 01/03/24 09:39 PTT Ratio 1.2 01/03/24 09:39 Sodium 137 mmol/L (136-145) 01/05/24 06:27 Potassium 3.9 mmol/L (3.5-5.1) 01/05/24 06:27 Chloride 104 mmol/L (98-107) 01/05/24 06:27 Carbon Dioxide 30 mmol/L (21-32) 01/05/24 06:27 Anion Gap 3 (3-11) 01/05/24 06:27 BUN 6 mg/dl (6-23) 01/05/24 06:27 Creatinine 0.97 mg/dl (0.6-1.4) 01/05/24 06:27 Est Cr Clr Drug Dosing 99.8 ml/min 01/05/24 06:27 eGFR 89.93 01/05/24 06:27 BUN/Creatinine Ratio 6.2 (10-20) L 01/05/24 06:27 Glucose 118 mg/dl (70-99(Fasting)) H 01/05/24 06:27 POC Glucose 113 mg/dl (70-99) H 01/05/24 11:17 Estimat Average Glucose 128 mg/dl 01/05/24 06:27 Hemoglobin A1c 6.1 % (4.5-5.6) H 01/05/24 06:27 Calcium 8.6 mg/dl (8.6-10.3) 01/05/24 06:27 Total Bilirubin 0.5 mg/dl (0.2-1.0) 01/05/24 06:27 AST 15 U/L (13-39) 01/05/24 06:27 ALT 20 U/L (7-52) 01/05/24 06:27 Alkaline Phosphatase 54 U/L (34-104) 01/05/24 06:27 Total Protein 6.4 gm/dl (6.0-8.3) 01/05/24 06:27 Albumin 3.4 gm/dl (3.4-5.0) 01/05/24 06:27 Globulin 3.0 gm/dl (2.5-4.0) 01/05/24 06:27 Albumin/Globulin Ratio 1.1 (0.9-2) 01/05/24 06:27 Lipase 41 U/L (11-82) 01/03/24 09:39 Urine Color Dark Yellow 01/03/24 11:17 Urine Appearance Clear (Clear) 01/03/24 11:17 Urine pH 5.0 (4.5-7.5) 01/03/24 11:17 Ur Specific [place] 1.024 (1.000-1.030) 01/03/24 11:17 Urine Protein Trace (Negative) H 01/03/24 11:17 Urine Glucose (UA) Negative (Negative) 01/03/24 11:17 Urine Ketones Trace (Negative) H 01/03/24 11:17 Urine Blood Negative (Negative) 01/03/24 11:17 Urine Nitrite Negative (Negative) 01/03/24 11:17 Urine Bilirubin Negative (Negative) 01/03/24 11:17 Urine Urobilinogen Negative (Negative) 01/03/24 11:17 Ur Leukocyte Esterase 1+ (Negative) H 01/03/24 11:17 Urine WBC (Auto) 0-5 /hpf (0-5) 01/03/24 11:17 Urine RBC (Auto) 0-2 /hpf (0-2) 01/03/24 11:17 U Hyaline Cast (Auto) 3-5 /lpf (0-2) H 01/03/24 11:17 U Epithel Cells (Auto) 0-2 /hpf (0-2) 01/03/24 11:17 Urine Bacteria (Auto) None Seen (None Seen) 01/03/24 11:17 Urine Mucus Present (None Prsent) A 01/03/24 11:17 Impressions Abdomen/Pelvis CT 01/03/24 09:[address] WITHOUT CONTRAST CT DOSE: 1465.17 mGy.cm HISTORY: Acute left-sided flank pain with hematuria left flank pain, dark urine TECHNIQUE: Multiaxial CT images of the abdomen and pelvis were performed without contrast. A dose lowering technique was utilized adhering to the principles of ALARA. COMPARISON STUDY: 01/01/2024 FINDINGS: Mild cardiomegaly. Clear lung bases. No pneumatosis or pneumoperitoneum. The unenhanced spleen is unremarkable scattered calcifications redemonstrated. Unremarkable pancreas, gallbladder and adrenal glands. Hepatic steatosis. Surgical clips of the liver redemonstrated. Unchanged hyperdense focus adjacent to the posterior inferior right hepatic lobe on image 113 measuring 11 mm. 2.2 cm exophytic mixed attenuating lesion with macroscopic fat is unchanged suggestive of a treated lesion versus angiomyolipoma. 3 mm calcification the lateral interpolar right kidney. No ureteral calculi or hydronephrosis. Decompressed urinary bladder. Small fat filled left inguinal hernia. No abdominal aortic aneurysm or lymphadenopathy. No bowel obstruction or bowel wall thickening. Slightly decreased inflammation involving the acute diverticulitis of the proximal sigmoid. No abscess. Scattered large and small bowel air-fluid levels. The appendix is reportedly surgically absent. Fat filled periumbilical hernias measuring up to approximately 4 cm. No acute fracture. IMPRESSION: 1. Slight improvement of the acute sigmoid diverticulitis. 2. No bowel obstruction, abscess or pneumoperitoneum. 3. No ureteral calculi or hydronephrosis. 4. Hepatic steatosis. 5. Fat filled ventral abdominal wall hernias. 6. Additional findings as above. ACT 112: Negative or not required by law. The above report was generated using voice recognition software. It may contain grammatical, syntax or spelling errors. Electronically signed by: Daniel Abdi M.D. 01/03/2024 10:32 AM
[2024-01-05] MEDS: PIPERACILLIN/TAZOBACTAM 4.5 GM/100 ML BAG IV SCH (16:12)
[2024-01-05] MEDS: WARFARIN SOD 5 MG TAB PO SCH (16:18)
[2024-01-06 06:24] LABS: Hematocrit (blood only) 41.8 % (42.0-52.0); Hemoglobin 14.2 g/dl (14.0-18.0); Mean Corpuscular Hemoglobin 29.8 pg (25.0-34.0); Mean Corpuscular Volume 87.8 fL (80.0-100.0); Mean Platelet Volume 8.6 fL (9.4-12.4); Platelet Count 260 K/uL (130-400); RDW Coefficient of Variation 11.9 % (11.5-14.5); RDW Standard Deviation 38.5 fL (36.4-46.3); Red Blood Count 4.76 M/uL (4.70-6.10); White Blood Count 4.71 K/ul (4.8-10.8)
[2024-01-06 06:44] LABS: Albumin Globulin Ratio 1.1 (0.9-2); Albumin Level 3.5 gm/dl (3.4-5.0); BUN Creatinine Ratio 7.3 (10-20); Bilirubin,Total 0.6 mg/dl (0.2-1.0); Calcium 8.8 mg/dl (8.6-10.3); Globulin 3.1 gm/dl (2.5-4.0); Potassium 4.2 mmol/L (3.5-5.1); Total Protein 6.6 gm/dl (6.0-8.3)
[2024-01-06 06:58] LABS: INR 2.6 (0.9-1.1); Prothrombin Time 25.7 Seconds (9.0-12.0)
--- NOTE | 2024-01-06 11:30 | Surgery Consultation ---
Date of Consultation January 06, 2024 Assessment & Plan (1) Diverticulitis: (2) Failure of outpatient treatment: 58 year-old male with first episode of acute uncomplicated diverticulitis who failed outpatient oral antibiotics with cipro and flagyl admitted over weekend with repeat CT scan showing improvement of diverticulitis, afebrile and no leukocytosis. Subjectively abdominal pain is not improving. Transitioned to IV Zosyn yesterday. Abdomen with tenderness in mid to lower left abdomen however no rigidity, guarding, rebound, or peritonitis. Discussed with patient and his that he has uncomplicated diverticulitis with no leukocytosis and improving CT scan. Although he is not subjectively feeling better would given the IV Zosyn a little more time to come into effect. No acute surgical intervention recommended at this time. Discussed that with acute diverticulitis we recommend getting patients through acute phase without surgical intervention to avoid potential temporary colostomy. He has significant surgical history involving exploratory laparotomy for trauma back in 80's and is on Coumadin for clotting disorder so he would surgical intervention may be more difficulty given that history. Recommend IV zosyn for 1-2 more days, low fiber diet okay for now but if any more pain or nausea or bloating would revert back to clear liquids, ambulate, pain management as needed. Discussed with Dr. Humphries who agrees with above. History of Present Illness Reason for Consultation: Acute uncomplicated diverticulitis Requesting Physician: Rashaad Lomax Attending Physician: Madhav Lauren MD History of Present Illness Mr. Emerson is a 58 yo male who presented to ED last Friday evening for abdominal pain that started Friday evening and progressively increased with chills and fever. Underwent CT scan which showed uncomplicated sigmoid divert iculitis and was given dose of IV abx in ED and discharged with oral cipro and flagyl. States pain started to increase at home and presented back to ED on Friday due to increasing pain and blood in urine. Repeat CT scan on 01/03/24 showed slight improvement of the sigmoid diverticulitis, no evidence of complicated disease(microperforation or abscess). He has had no leukocytosis. He was started on IV Cipro and flagyl and diet has been advanced to low fiber. Our services consulted due to persistent abdominal pain with no real improvement on IV abx. Just transitioned to IV Zosyn yesterday. He currently states pain is in left mid to low abdomen, rating 5/10 with some nausea. Pain was about 6/10 on Friday. Trying to avoid narcotics. Allergies Allergy/AdvReac Type Severity Reaction Status Date / Time adhesive tape Allergy Intermediate Blister Verified 01/03/24 11:01 latex Allergy Intermediate Blister Verified 01/03/24 11:01 clarithromycin AdvReac Intermediate Depression Verified 01/03/24 11:01 penicillin V AdvReac Intermediate mood Verified 01/05/24 11:59 changes Home Medications Medication Instructions Recorded Confirmed Type lisinopril 20 mg tablet 20 mg PO QAM 10/02/22 01/03/24 History pramipexole 1 mg tablet 1 mg PO QPM 04/16/23 01/03/24 History semaglutide 0.25 mg or 0.5 mg (2 0.5 mg subcut WK 04/16/23 01/03/24 History mg/3 mL) subcutaneous pen injector (Ozempic) warfarin 5 mg tablet See Rx Instructions .Route .COMPLEX 04/16/23 01/03/24 History acetaminophen 500 mg capsule 1,000 mg PO Q6H PRN Fever Or Pain 10/14/23 01/03/24 History ciprofloxacin HCl 500 mg tablet 500 mg PO BID 01/03/24 01/03/24 History (Cipro) metronidazole 500 mg tablet 500 mg PO TID 01/03/24 01/03/24 History Patient History Medical History (Updated 01/04/24 @ 12:25 by Silas Beckett MD) Shelton's esophagus determined by biopsy Adenocarcinoma, 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 Hypertension Degenerative disc disease, lumbar L5 Surgical History (Updated 01/04/24 @ 12:22 by Silas Beckett MD) H/O sinus surgery History of rotator cuff surgery S/P rotator cuff surgery S/P wisdom tooth extraction History of splenectomy History of cholecystectomy History of appendectomy History of colonoscopy History of esophagogastroduodenoscopy (EGD) Family History Other No pertinent family history Social History Smoking Status: Never smoker Tobacco Type: Smokeless Tobacco (Dip or Chew) Second Hand Exposure: No; Do You Dip or Chew Tobacco: Yes (1 can/day); Hx Alcohol Use: Yes Alcohol type: beer Hx Substance Use: No Preferred Language: Maori Communication Ability: Effective 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 Beliefs That Will Affect Care: None Current Living Situation: Spouse current occupational status: employed Other Information That Helps Us Care for You: No Feels Safe at Home: Yes Safety Concerns: Feels Safe At This Time Assistive Devices: None Physical Exam Constitutional: WD/WN, vitals as above + obese, cooperative and comfortable; no acute distress and not ill appearing Respiratory: normal respiratory effort; no respiratory distress and no labored breathing Gastrointestinal (Abdomen): Inspection/Auscultation: abdomen normal to inspection and + abdominal surgical scar (midline laparotomy scar from sternum to suprapubic); abdomen not distended Percussion/Palpation: + abdomen tender (left mid to lower abdomen) and abdomen soft; no guarding, abdomen not rigid and abdomen not firm Skin: no rashes, warm and dry Psychiatric: A+Ox3, euthymic affect Results & Data Vital Signs (Past 12 Hours) Vital Signs Temp Pulse Resp BP Pulse Ox O2 Del Method 01/06/24 10:37 37.0 C 75 16 129/78 96 Room Air 01/06/24 07:32 36.7 C 73 16 136/84 93 Room Air 01/06/24 07:30 Room Air Laboratory Results 01/06/24 Range/Units 05:33 WBC 4.71 L (4.8-10.8) K/ul RBC 4.76 (4.70-6.10) M/uL Hgb 14.2 (14.0-18.0) g/dl Hct 41.8 L (42.0-52.0) % MCV 87.8 (80.0-100.0) fL MCH 29.8 (25.0-34.0) pg MCHC 34.0 (32.0-36.0) g/dL RDW Std Deviation 38.5 (36.4-46.3) fL RDW Coeff of Melody 11.9 (11.5-14.5) % Plt Count 260 (130-400) K/uL MPV 8.6 L (9.4-12.4) fL PT 25.7 H (9.0-12.0) Seconds INR 2.6 H (0.9-1.1) Sodium 138 (136-145) mmol/L Potassium 4.2 (3.5-5.1) mmol/L Chloride 102 (98-107) mmol/L Carbon Dioxide 31 (21-32) mmol/L Anion Gap 5 (3-11) BUN 8 (6-23) mg/dl Creatinine 1.10 (0.6-1.4) mg/dl Est Cr Clr Drug Dosing 88.0 ml/min eGFR 77.33 BUN/Creatinine Ratio 7.3 L (10-20) Glucose 95 (70-99(Fasting)) mg/dl Calcium 8.8 (8.6-10.3) mg/dl Total Bilirubin 0.6 (0.2-1.0) mg/dl AST 15 (13-39) U/L ALT 19 (7-52) U/L Alkaline Phosphatase 55 (34-104) U/L Total Protein 6.6 (6.0-8.3) gm/dl Albumin 3.5 (3.4-5.0) gm/dl Globulin 3.1 (2.5-4.0) gm/dl Albumin/Globulin Ratio 1.1 (0.9-2) Diagnostic Findings ABDOMEN AND PELVIS CT WITHOUT CONTRAST CT DOSE: 1465.17 mGy.cm HISTORY: Acute left-sided flank pain with hematuria left flank pain, dark urine TECHNIQUE: Multiaxial CT images of the abdomen and pelvis were performed without contrast. A dose lowering technique was utilized adhering to the principles of ALARA. COMPARISON STUDY: 01/01/2024 FINDINGS: Mild cardiomegaly. Clear lung bases. No pneumatosis or pneumoperitoneum. The unenhanced spleen is unremarkable scattered calcifications redemonstrated. Unremarkable pancreas, gallbladder and adrenal glands. Hepatic steatosis. Surgical clips of the liver redemonstrated. Unchanged hyperdense focus adjacent to the posterior inferior right hepatic lobe on image 113 me asuring 11 mm. 2.2 cm exophytic mixed attenuating lesion with macroscopic fat is unchanged suggestive of a treated lesion versus angiomyolipoma. 3 mm calcification the lateral interpolar right kidney. No ureteral calculi or hydronephrosis. Decompressed urinary bladder. Small fat filled left inguinal hernia. No abdominal aortic aneurysm or lymphadenopathy. No bowel obstruction or bowel wall thickening. Slightly decreased inflammation involving the acute diverticulitis of the proximal sigmoid. No abscess. Scattered large and small bowel air-fluid levels. The appendix is reportedly surgically absent. Fat filled periumbilical hernias measuring up to approximately 4 cm. No acute fracture. IMPRESSION: 1. Slight improvement of the acute sigmoid diverticulitis. 2. No bowel obstruction, abscess or pneumoperitoneum. 3. No ureteral calculi or hydronephrosis. 4. Hepatic steatosis. 5. Fat filled ventral abdominal wall hernias. 6. Additional findings as above.
--- NOTE | 2024-01-06 11:35 | Hospitalist Progress Note ---
Date of Service January 06, 2024 Assessment & Plan (1) Diverticulitis: (2) Left sided abdominal pain: (3) RLS (restless legs syndrome): (4) Myocardial Infarction: (5) Hypertension: (6) Shelton's esophagus determined by biopsy: Plan Assessment and plan: Acute diverticulitis: Started on oral Flagyl/Cipro 4 days prior to admission with no improvement GI consulted, recommending continue IV antibiotics x 3 days and continue to trend WBC -Will need p.o. antibiotics for at least 10/14 days after discharge Advance diet as tolerated to soft and continue soft diet for several weeks after Follow-up with GI outpatient/[facility] 1 month after resolution -01/05: IV Cipro/Flagyl transitioned to IV Zosyn on 01/04, still with minimal improvement - clear liq diet Discussed with surgery, recommending IV Zosyn x 2 more days, recent CT A/P showed improvement L scrotal pain: Patient reports tenderness/redness of his left testicle, scrotal ultrasound ordered and pending Hx HTN: Continue lisinopril Hx DM2: Reports his A1c recently was 6.8, will rechecknow 6.1 Hold Ozempic, SSI/4 times daily BGM Hx hypercoagulable state/multiple PEs Continue warfarin, hematuria resolved, INR therapeutic today A total of 45 minutes was spent on chart review/reviewing diagnostic data/facilitating plan of care/discussion with consultants Patient is a DNR/DNI DVT prophylaxis: Warfarin Admission and Anticipated Discharge Date Admission Date: January 05, 2024 Supervising Physician Co-Signing Physician Notes 58-year-old male with PMH of nonobstructive CAD, hypercoagulable state [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 GI evaluated the patient. Gen Sx on board due to pt's abd pain not improving. Cipro and flagyl iv changed to zosyn 01/04 after d/w pt (pt w/ side effects to penicillin in the past, but agreeable to try zosyn). Pt w/ no much improvement in abd pain, moving liquid/watery BMs, is on soft diet and using pain meds. Pt rates pain as 5/10 and earlier at presentation was rating 3/10. We discussed going back to daniel, pt agreed. clear liq diet ordered. c/w iv antibiotic. pt's was also updated at bedside. Follow-up colonoscopy in 6 to 8 weeks time. Follow-up with GI as an outpatient. Continue home warfarin, monitor H&H [patient complained of hematuria]. On exam: Patient on room air, NAD, left lower quadrant tender noted. Rest of the examination as above. Time spent: 25 minutes I have seen and examined the patient and have discussed the case with the provider above. I agree with the assessment and plan as stated. Subjective Patient seen and examined. No apparent distress. Reports frustration because he feels he is not getting better. Pain is not worse but he reports that he does not feel much better today. Also reports some left scrotal tenderness. Review of Systems Review of Systems: All systems reviewed & are unremarkable except as noted in HPI & below Physical Exam Constitutional: WD/WN, vitals as above Eyes: PERRL, conjunctivae normal, anicteric sclerae ENMT: external ear and nose normal, oropharynx normal Neck: trachea midline, no thyromegaly Respiratory: normal respiratory effort, lungs clear to auscultation Cardiovascular: RRR, no murmur, no edema Gastrointestinal (Abdomen): normal bowel sounds, soft, nontender, no hepatosplenomegaly (Left-sided abdominal pain) Musculoskeletal: no cyanosis or clubbing, extremities motor strength 5/5 Skin: no rashes, warm and dry Neurologic: PERRL, EOMI, accommodation nl, no face palsy, no dysarthria Psychiatric: A+Ox3, euthymic affect Lymphatic: no cervical or axillary lymphadenopathy Results & Data Results & Data Vital Signs (Past 12 Hours) Vital Signs Temp Pulse Resp BP Pulse Ox O2 Del Method 01/06/24 10:37 37.0 C 75 16 129/78 96 Room Air 01/06/24 07:32 36.7 C 73 16 136/84 93 Room Air 01/06/24 07:30 Room Air Diagnostic Findings Laboratory Results WBC 4.71 K/ul (4.8-10.8) L 01/06/24 05:33 RBC 4.76 M/uL (4.70-6.10) 01/06/24 05:33 Hgb 14.2 g/dl (14.0-18.0) 01/06/24 05:33 Hct 41.8 % (42.0-52.0) L 01/06/24 05:33 MCV 87.8 fL (80.0-100.0) 01/06/24 05:33 MCH 29.8 pg (25.0-34.0) 01/06/24 05:33 MCHC 34.0 g/dL (32.0-36.0) 01/06/24 05:33 RDW Std Deviation 38.5 fL (36.4-46.3) 01/06/24 05:33 RDW Coeff of Melody 11.9 % (11.5-14.5) 01/06/24 05:33 Plt Count 260 K/uL (130-400) 01/06/24 05:33 MPV 8.6 fL (9.4-12.4) L 01/06/24 05:33 Immature Gran % (Auto) 0.4 % 01/04/24 07:23 Neut % (Auto) 62.0 % 01/04/24 07:23 Lymph % (Auto) 22.6 % 01/04/24 07:23 [place] % (Auto) 9.7 % 01/04/24 07:23 Eos % (Auto) 4.7 % 01/04/24 07:23 Baso % (Auto) 0.6 % 01/04/24 07:23 Neut # (Auto) 3.18 K/uL (1.40-6.50) 01/04/24 07:23 Lymph # (Auto) 1.16 K/uL (1.20-3.40) L 01/04/24 07:23 [place] # (Auto) 0.50 K/uL (0.11-0.59) 01/04/24 07:23 Eos # (Auto) 0.24 K/uL (0.00-0.50) 01/04/24 07:23 Baso # (Auto) 0.03 K/uL (0.00-0.20) 01/04/24 07:23 Immature Gran # (Auto) 0.02 K/uL (0.01-0.20) 01/04/24 07:23 ESR 47 mm/hr (0-20) H 01/04/24 07:23 PT 25.7 Seconds (9.0-12.0) H 01/06/24 05:33 INR 2.6 (0.9-1.1) H 01/06/24 05:33 APTT 33 Seconds (21-31) H 01/03/24 09:39 PTT Ratio 1.2 01/03/24 09:39 Sodium 138 mmol/L (136-145) 01/06/24 05:33 Potassium 4.2 mmol/L (3.5-5.1) 01/06/24 05:33 Chloride 102 mmol/L (98-107) 01/06/24 05:33 Carbon Dioxide 31 mmol/L (21-32) 01/06/24 05:33 Anion Gap 5 (3-11) 01/06/24 05:33 BUN 8 mg/dl (6-23) 01/06/24 05:33 Creatinine 1.10 mg/dl (0.6-1.4) 01/06/24 05:33 Est Cr Clr Drug Dosing 88.0 ml/min 01/06/24 05:33 eGFR 77.33 01/06/24 05:33 BUN/Creatinine Ratio 7.3 (10-20) L 01/06/24 05:33 Glucose 95 mg/dl (70-99(Fasting)) 01/06/24 05:33 POC Glucose 113 mg/dl (70-99) H 01/05/24 11:17 Estimat Average Glucose 128 mg/dl 01/05/24 06:27 Hemoglobin A1c 6.1 % (4.5-5.6) H 01/05/24 06:27 Calcium 8.8 mg/dl (8.6-10.3) 01/06/24 05:33 Total Bilirubin 0.6 mg/dl (0.2-1.0) 01/06/24 05:33 AST 15 U/L (13-39) 01/06/24 05:33 ALT 19 U/L (7-52) 01/06/24 05:33 Alkaline Phosphatase 55 U/L (34-104) 01/06/24 05:33 Total Protein 6.6 gm/dl (6.0-8.3) 01/06/24 05:33 Albumin 3.5 gm/dl (3.4-5.0) 01/06/24 05:33 Globulin 3.1 gm/dl (2.5-4.0) 01/06/24 05:33 Albumin/Globulin Ratio 1.1 (0.9-2) 01/06/24 05:33 Lipase 41 U/L (11-82) 01/03/24 09:39 Urine Color Dark Yellow 01/03/24 11:17 Urine Appearance Clear (Clear) 01/03/24 11:17 Urine pH 5.0 (4.5-7.5) 01/03/24 11:17 Ur Specific [place] 1.024 (1.000-1.030) 01/03/24 11:17 Urine Protein Trace (Negative) H 01/03/24 11:17 Urine Glucose (UA) Negative (Negative) 01/03/24 11:17 Urine Ketones Trace (Negative) H 01/03/24 11:17 Urine Blood Negative (Negative) 01/03/24 11:17 Urine Nitrite Negative (Negative) 01/03/24 11:17 Urine Bilirubin Negative (Negative) 01/03/24 11:17 Urine Urobilinogen Negative (Negative) 01/03/24 11:17 Ur Leukocyte Esterase 1+ (Negative) H 01/03/24 11:17 Urine WBC (Auto) 0-5 /hpf (0-5) 01/03/24 11:17 Urine RBC (Auto) 0-2 /hpf (0-2) 01/03/24 11:17 U Hyaline Cast (Auto) 3-5 /lpf (0-2) H 01/03/24 11:17 U Epithel Cells (Auto) 0-2 /hpf (0-2) 01/03/24 11:17 Urine Bacteria (Auto) None Seen (None Seen) 01/03/24 11:17 Urine Mucus Present (None Prsent) A 01/03/24 11:17 Impressions Abdomen/Pelvis CT 01/03/24 09:[address] WITHOUT CONTRAST CT DOSE: 1465.17 mGy.cm HISTORY: Acute left-sided flank pain with hematuria left flank pain, dark urine TECHNIQUE: Multiaxial CT images of the abdomen and pelvis were performed without contrast. A dose lowering technique was utilized adhering to the principles of ALARA. COMPARISON STUDY: 01/01/2024 FINDINGS: Mild cardiomegaly. Clear lung bases. No pneumatosis or pneumop eritoneum. The unenhanced spleen is unremarkable scattered calcifications redemonstrated. Unremarkable pancreas, gallbladder and adrenal glands. Hepatic steatosis. Surgical clips of the liver redemonstrated. Unchanged hyperdense focus adjacent to the posterior inferior right hepatic lobe on image 113 measuring 11 mm. 2.2 cm exophytic mixed attenuating lesion with macroscopic fat is unchanged sug gestive of a treated lesion versus angiomyolipoma. 3 mm calcification the lateral interpolar right kidney. No ureteral calculi or hydronephrosis. Decompressed urinary bladder. Small fat filled left inguinal hernia. No abdominal aortic aneurysm or lymphadenopathy. No bowel obstruction or bowel wall thickening. Slightly decreased inflammation involving the acute diverticulitis of the proximal sigmoid. No abscess. Scattered large and small bowel air-fluid levels. The appendix is reportedly surgically absent. Fat filled periumbilical hernias measuring up to approximately 4 cm. No acute fracture. IMPRESSION: 1. Slight improvement of the acute sigmoid diverticulitis. 2. No bowel obstruction, abscess or pneumoperitoneum. 3. No ureteral calculi or hydronephrosis. 4. Hepatic steatosis. 5. Fat filled ventral abdominal wall hernias. 6. Additional findings as above. ACT 112: Negative or not required by law. The above report was generated using voice recognition software. It may contain grammatical, syntax or spelling errors. Electronically signed by: Daniel Abdi M.D. 01/03/2024 10:32 AM
--- NOTE | 2024-01-06 13:20 | Ultrasound Report ---
US scrotum/testicle CLINICAL HISTORY: 58 years-old Male with pain and swelling - l testicle. Acute pain and swelling of the scrotum COMPARISON STUDY: CT January 03, 2024 TECHNIQUE: Real-time, grayscale, and color Doppler sonography of the testes and scrotum is performed. Images are reviewed in the transverse and longitudinal planes. FINDINGS: RIGHT HEMISCROTUM: The right testis measures 4.9 x 2.3 x 3.0 cm and the parenchyma appears unremarkab le. No intratesticular mass is seen. Normal-appearing arterial inflow is present within the right martha ticle. Subcentimeter epididymal head cyst. No varicocele. Trace hydrocele. LEFT HEMISCROTUM: The left testis measures 5.1 x 3.3 x 2.6 cm and the parenchyma appears unremarkable . No intratesticular mass is seen. Normal-appearing arterial inflow is present within the left testic le. Subcentimeter epididymal head cyst. Small varicocele with trace hydrocele. IMPRESSION: 1. No testicular torsion or mass. 2. Trace hydroceles. 3. Small left varicocele. ACT 112: Negative or not required by law. The above report was generated using voice recognition software. It may contain grammatical, syntax o r spelling errors. Electronically signed by: Daniel Abdi M.D. 01/06/2024 1:18 PM
[2024-01-06 18:09] LABS: Appearance Urine Clear (Clear); Bilirubin Urine Negative (Negative); Blood Urine Negative (Negative); Color Urine Yellow; Glucose Urine UA Negative (Negative); Ketones Urine Negative (Negative); Leukocyte Esterase Urine Negative (Negative); Nitrite Urine Negative (Negative); Protein Urine Negative (Negative); Specific Gravity Urine 1.012 (1.000-1.030); Urobilinogen Urine Negative (Negative); pH Urine 6.5 (4.5-7.5)
[2024-01-07 08:06] LABS: Basophils # (auto) 0.03 K/uL (0.00-0.20); Basophils % (auto) 0.7 %; Eosinophils # (auto) 0.29 K/uL (0.00-0.50); Eosinophils % (auto) 6.5 %; Hematocrit (blood only) 43.6 % (42.0-52.0); Hemoglobin 14.7 g/dl (14.0-18.0); Immature Granulocytes # (auto) 0.01 K/uL (0.01-0.20); Immature Granulocytes % (auto) 0.2 %; Lymphocytes # (auto) 0.94 K/uL (1.20-3.40); Lymphocytes % (auto) 21.2 %; Mean Corpuscular Hemoglobin 29.9 pg (25.0-34.0); Mean Corpuscular Hgb Conc 33.7 g/dL (32.0-36.0); Mean Corpuscular Volume 88.6 fL (80.0-100.0); Mean Platelet Volume 8.5 fL (9.4-12.4); Monocytes # (auto) 0.59 K/uL (0.11-0.59); Monocytes % (auto) 13.3 %; Neutrophils # (auto) 2.57 K/uL (1.40-6.50); Neutrophils % (auto) 58.1 %; Platelet Count 252 K/uL (130-400); RDW Coefficient of Variation 12.2 % (11.5-14.5); Red Blood Count 4.92 M/uL (4.70-6.10); White Blood Count 4.43 K/ul (4.8-10.8)
[2024-01-07 08:26] LABS: Albumin Globulin Ratio 1.1 (0.9-2); Albumin Level 3.6 gm/dl (3.4-5.0); BUN Creatinine Ratio 6.7 (10-20); Bilirubin,Total 0.5 mg/dl (0.2-1.0); Calcium 8.9 mg/dl (8.6-10.3); Creatinine Clr Calc Pharmacy 93.1 ml/min; Globulin 3.4 gm/dl (2.5-4.0); Potassium 3.9 mmol/L (3.5-5.1)
[2024-01-07 08:27] LABS: INR 3.1 (0.9-1.1); Prothrombin Time 30.8 Seconds (9.0-12.0)
--- NOTE | 2024-01-07 11:49 | Surgery Progress Note ---
Date of Service January 07, 2024 Assessment & Plan (1) Diverticulitis: (2) Failure of outpatient treatment: Plan: 58 year-old male with first episode of acute uncomplicated diverticulitis who failed outpatient oral antibiotics with cipro and flagyl admitted over weekend with repeat CT scan showing improvement of diverticulitis, afebrile and no leukocytosis. Subjectively abdominal pain was not improving. Transitioned to IV Zosyn 01/05/2024. He has had no leukocytosis during hospitalization. He is finally feeling better and pain improving. Would recommend another day of IV Zosyn and transition to oral Augmentin. Okay with low fiber diet. Continue medi brendan management. No acute surgical issues. Will sign off, call with questions/concerns. Dr. Humphries has seen and examined patient, agrees with above. Admission and Anticipated Discharge Date Admission Date: January 05, 2024 Subjective finally feeling better today pain improving, not as sharp diet changed to clear liquids yesterday but would like soft diet again no fevers or chills Physical Exam Constitutional: WD/WN, vitals as above + obese, cooperative and comfortable; no acute distress and not ill appearing Respiratory: normal respiratory effort; no respiratory distress and no labored breathing Gastrointestinal (Abdomen): Inspection/Auscultation: abdomen normal to inspection and + abdominal surgical scar (midline laparotomy scar); abdomen not distended Percussion/Palpation: + abdomen tender (left mid to lower abdomen) and abdomen soft; no guarding, abdomen not rigid and abdomen not firm Skin: no rashes, warm and dry Psychiatric: A+Ox3, euthymic affect Results & Data Vital Signs (Past 12 Hours) Vital Signs Temp Pulse Resp BP Pulse Ox O2 Del Method 01/07/24 07:29 Room Air 01/07/24 07:09 36.6 C 62 16 133/79 94 Room Air Laboratory Results 01/07/24 01/06/24 Range/Units 07:20 17:50 WBC 4.43 L (4.8-10.8) K/ul RBC 4.92 (4.70-6.10) M/uL Hgb 14.7 (14.0-18.0) g/dl Hct 43.6 (42.0-52.0) % MCV 88.6 (80.0-100.0) fL MCH 29.9 (25.0-34.0) pg MCHC 33.7 (32.0-36.0) g/dL RDW Std Deviation 40.0 (36.4-46.3) fL RDW Coeff of Melody 12.2 (11.5-14.5) % Plt Count 252 (130-400) K/uL MPV 8.5 L (9.4-12.4) fL Immature Gran % (Auto) 0.2 % Neut % (Auto) 58.1 % Lymph % (Auto) 21.2 % [place] % (Auto) 13.3 % Eos % (Auto) 6.5 % Baso % (Auto) 0.7 % Neut # (Auto) 2.57 (1.40-6.50) K/uL Lymph # (Auto) 0.94 L (1.20-3.40) K/uL [place] # (Auto) 0.59 (0.11-0.59) K/uL Eos # (Auto) 0.29 (0.00-0.50) K/uL Baso # (Auto) 0.03 (0.00-0.20) K/uL Immature Gran # (Auto) 0.01 (0.01-0.20) K/uL PT 30.8 H (9.0-12.0) Seconds INR 3.1 H (0.9-1.1) Sodium 136 (136-145) mmol/L Potassium 3.9 (3.5-5.1) mmol/L Chloride 101 (98-107) mmol/L Carbon Dioxide 29 (21-32) mmol/L Anion Gap 6 (3-11) BUN 7 (6-23) mg/dl Creatinine 1.04 (0.6-1.4) mg/dl Est Cr Clr Drug Dosing 93.1 ml/min eGFR 82.71 BUN/Creatinine Ratio 6.7 L (10-20) Glucose 110 H (70-99(Fasting)) mg/dl Calcium 8.9 (8.6-10.3) mg/dl Total Bilirubin 0.5 (0.2-1.0) mg/dl AST 24 (13-39) U/L ALT 23 (7-52) U/L Alkaline Phosphatase 61 (34-104) U/L Total Protein 7.0 (6.0-8.3) gm/dl Albumin 3.6 (3.4-5.0) gm/dl Globulin 3.4 (2.5-4.0) gm/dl Albumin/Globulin Ratio 1.1 (0.9-2) Urine Color Yellow Urine Appearance Clear (Clear) Urine pH 6.5 (4.5-7.5) Ur Specific [place] 1.012 (1.000-1.030) Urine Protein Negative (Negative) Urine Glucose (UA) Negative (Negative) Urine Ketones Negative (Negative) Urine Blood Negative (Negative) Urine Nitrite Negative (Negative) Urine Bilirubin Negative (Negative) Urine Urobilinogen Negative (Negative) Ur Leukocyte Esterase Negative (Negative)
[2024-01-07 15:21] LABS: Adenovirus F 40/41 PCR Not Detected (NotDetected); Astrovirus PCR Not Detected (NotDetected); Campylobacter PCR Not Detected (NotDetected); Cryptosporidium PCR Not Detected (NotDetected); Cyclospora cayetanensis PCR Not Detected (NotDetected); Entamoeba histolytica PCR Not Detected (NotDetected); Enteroaggregative E.coli(EAEC) Not Detected (NotDetected); Enterotoxigenic E.coli (ETEC) Not Detected (NotDetected); Giardia lamblia PCR Not Detected (NotDetected); Norovirus GI/GII PCR Not Detected (NotDetected); Plesiomonas shigelloides PCR Not Detected (NotDetected); Rotavirus A PCR Not Detected (NotDetected); Salmonella PCR Not Detected (NotDetected); Sapovirus PCR Not Detected (NotDetected); Shiga-like Toxin E.coli (STEC) Not Detected (NotDetected); Shigella/Enteroinvasive E.coli Not Detected (NotDetected); Vibrio cholerae PCR Not Detected (NotDetected); Vibrio species PCR Not Detected (NotDetected); Yersinia enterocolitica PCR Not Detected (NotDetected)
[2024-01-07 15:26] LABS: Enteropathogenic E.coli (EPEC) DETECTED (NotDetected)
--- NOTE | 2024-01-07 17:48 | Hospitalist Progress Note ---
Date of Service January 07, 2024 Assessment & Plan (1) Diverticulitis: (2) Watery diarrhea: Plan Gabe Emerson is a 58y/o M with PMHx significant for DM type II, dyslipidemia, chronic sinusitis, deviated nasal septum, ISABELA on BiPAP, nonobstructive CAD, hypercoagulable state [heterozygous prothrombin gene mutation plus recurrent PE/DVT on Coumadin], NAFLD, diverticulosis of colon, GERD, Shelton's esophagus, restless legs syndrome, right kidney cancer s/p ablation, chronic back pain and anxiety/mood disorder who presented to the ED on 01/03/2024 with abdominal pain secondary to sigmoid diverticulitis. Patient had previously been seen in the ED on 01/01/2024 and was diagnosed with acute sigmoid diverticulitis at that time. He was subsequently discharged home on a course of oral ciprofloxacin/Flagyl with no improvement in his symptoms. Acute Sigmoid Diverticulitis Failed Outpatient Antibiotic Treatment: GI consulted on admission --> Recommended continuing IV ciprofloxacin/Flagyl however patient continued to have no improvement of his symptoms. General surgery was therefore consulted and he was transitioned from IV ciprofloxacin/Flagyl to IV Zosyn on 01/05/2024. His symptoms are improving significantly and he is now on a low fiber diet which he is tolerating well. Per general surgery --> "Would recommend another day of IV Zosyn and transition to oral Augmentin." He will most likely need to be on a full 10 to 14-day course of antibiotic (including IV + po) therapy per GI's recommendation. He will ultimately need close follow-up with GI and it is recommended that he has a follow-up colonoscopy approximately 1 month after completing his antibiotics. Watery Diarrhea, Positive for Enteropathogenic Escherichia coli (EPEC): Patient reports that he has been having watery diarrhea for the past couple of weeks. Denies any hematochezia or melena. Stool PCR today positive for EPEC. C diff testing negative. Isolation precautions onboard. Set to complete a 3-day course of po azithromycin. Left Scrotal Pain - RESOLVED: Patient was reporting tenderness/redness of his left testicle yesterday. Scrotal ultrasound was unremarkable. His left scrotal pain has resolved today. DM Type II: Hold home Ozempic, SSI regimen while inpatient. BSG checks ACHS. Hgb A1c 6.1% this admission. Hypercoagulable State History of Multiple DVT/PE: INR 3.1 today, will continue home warfarin dosing. Recheck PT/INR tomorrow AM. He was previously having some hematuria this admission however that has since resolved. Other Chronic Medical Conditions: HTN, RLS --> Can continue home medications for these specific conditions. DVT Prophylaxis: On warfarin [employer] - continue. Code Status: DNR/DNI - As per previous provider discussion with the patient. PCP: Rubi Kaufman, Disposition: Admitted in Med/Surg - Could possibly be discharged home tomorrow if his symptoms continue to improve and he continues to tolerate a diet. Patient seen in collaboration with Dr. Christy. Please see addendum. I spent a total of 50 minutes coordinating, documenting, and providing care for this patient excluding time spent in the performance of separately billed services. This included personally reviewing all current laboratories and imaging studies, medical reconciliation, outpatient chart review and discussion with specialists. This chart was completed in part utilizing Speech Voice Recognition Software. Grammatical errors, random word insertions, pronoun errors, and incomplete sentences are an occasional consequence of this system due to software limitations, ambient noise, and hardware issues. Any formal questions or concerns about the content, text, or information contained within the body of this dictation should be directly addressed to the provider for clarification. Admission and Anticipated Discharge Date Admission Date: January 05, 2024 Supervising Physician Co-Signing Physician Notes Patient seen and examined at bedside. He reports significant improvement in abdominal pain and is able to tolerate regular diet Stool PCR showed EPEC E. coli for which he is started on azithromycin Will DC in a.m. Needs follow-up with PCP and colonoscopy in 6 to 8 weeks I have reviewed the advanced practitioner's documentation, and I agree with, and take responsibility for the plan of care I spent a total of 20 minutes coordinating, documenting, and providing care for this patient excluding time spent in the performance of separately billed services. All of the aforementioned completed while collaborating with the assigned advanced practitioner for a full treatment plan Subjective Patient is feeling significantly better today. Notes abdominal pain is improving with the IV Zosyn. Diet was changed to clear liquids yesterday but surgery was okay with changing his diet to low fiber today. He has been tolerating a low fiber diet quite well thus far. Denies any chest pain/SOB/nausea/vomiting. He does endorse that he has been experiencing some watery diarrhea for the past couple of weeks. He has not been previously seen for this issue. Denies any blood in his stool. Reports that his left scrotal pain has completely resolved. He was informed of the scrotal ultrasound findings once again this morning. Review of Systems Review of Systems: At least ten systems reviewed and negative, except as noted in the subjective section. Physical Exam Physical Exam: General: WD/WN, vitals as above, NAD, sitting up in bed, very pleasant, conversing appropriately. A+Ox3, euthymic affect. HEENT: Normocephalic, atraumatic. Conjunctivae normal, anicteric sclerae. External ear and nose normal, oropharynx normal. Respiratory: Normal respiratory effort, lungs clear to auscultation, no wheeze, rales, rhonchi. No accessory muscle use. Cardiovascular: Regular rate, rhythm, no murmur, normal peripheral pulses, no BLE edema. Vessels: No JVD. Abdomen/GI: Active bowel sounds, midline laparotomy scar visualized, mild tenderness in the left mid to lower abdomen, soft. Extremities/Musculoskeletal: No cyanosis or clubbing, extremities motor strength intact, moves all extremities. Neurologic: No focal deficits, CN's II-XI not formally tested but appear grossly intact bilaterally. Skin: No rashes, normal color, warm/dry. Results & Data Results & Data Vital Signs (Past 12 Hours) Vital Signs Temp Pulse Resp BP Pulse Ox O2 Del Method 01/07/24 14:23 37.0 C 80 16 125/82 97 Room Air 01/07/24 07:29 Room Air 01/07/24 07:09 36.6 C 62 16 133/79 94 Room Air Laboratory Results Short CBC 01/07/24 Range/Units 07:20 WBC 4.43 L (4.8-10.8) K/ul Hgb 14.7 (14.0-18.0) g/dl Hct 43.6 (42.0-52.0) % Plt Count 252 (130-400) K/uL BMP 01/07/24 07:20 Sodium 136 Potassium 3.9 Chloride 101 Carbon Dioxide 29 BUN 7 Creatinine 1.04 Glucose 110 H Calcium 8.9 Liver Function 01/07/24 Range/Units 07:20 Total Bilirubin 0.5 (0.2-1.0) mg/dl AST 24 (13-39) U/L ALT 23 (7-52) U/L Alkaline Phosphatase 61 (34-104) U/L Albumin 3.6 (3.4-5.0) gm/dl Urine 01/06/24 Range/Units 17:50 Urine Color Yellow Urine Appearance Clear (Clear) Urine pH 6.5 (4.5-7.5) Ur Specific [place] 1.012 (1.000-1.030) Urine Protein Negative (Negative) Urine Glucose (UA) Negative (Negative)
[2024-01-07] MEDS: AZITHROMYCIN 250 MG TAB PO SCH (17:52)
[2024-01-07 21:12] VITALS: PULSE 75; O2SAT 94
[2024-01-08 07:19] VITALS: BP 120/82; RESP 16; TEMP 97.7
[2024-01-08 07:27] LABS: Hematocrit (blood only) 43.4 % (42.0-52.0); Hemoglobin 14.4 g/dl (14.0-18.0); Mean Corpuscular Hemoglobin 29.6 pg (25.0-34.0); Mean Corpuscular Hgb Conc 33.2 g/dL (32.0-36.0); Mean Corpuscular Volume 89.3 fL (80.0-100.0); Mean Platelet Volume 8.6 fL (9.4-12.4); Platelet Count 271 K/uL (130-400); RDW Coefficient of Variation 12.3 % (11.5-14.5); RDW Standard Deviation 40.7 fL (36.4-46.3); Red Blood Count 4.86 M/uL (4.70-6.10); White Blood Count 4.58 K/ul (4.8-10.8)
[2024-01-08 07:46] LABS: BUN Creatinine Ratio 10.3 (10-20); Creatinine Clr Calc Pharmacy 99.8 ml/min; Magnesium 2.1 mg/dl (1.7-2.4); Phosphorus 3.1 mg/dl (2.5-4.9); Potassium 3.9 mmol/L (3.5-5.1)
[2024-01-08 07:48] LABS: INR 3.3 (0.9-1.1)
--- NOTE | 2024-01-08 12:17 | Discharge Summary ---
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 Patient had previously been seen in the ED on 01/01/2024 and was diagnosed with acute sigmoid diverticulitis at that time. He was subsequently discharged home on a course of oral ciprofloxacin/Flagyl with no improvement in his symptoms. Acute Sigmoid Diverticulitis Failed Outpatient Antibiotic Treatment: GI consulted on admission --> Recommended continuing IV ciprofloxacin/Flagyl however patient continued to have no improvement of his symptoms. General surgery was therefore consulted and he was transitioned from IV ciprofloxacin/Flagyl to IV Zosyn on 01/05/2024. His symptoms continued to improve significantly and he was transitioned to a low fiber diet without issue. He is being discharged home on a 5-day course of oral Augmentin. It is recommended that he has a follow-up colonoscopy approximately 1 month after completing his antibiotics which can be arranged at his PCP follow-up appointment. Watery Diarrhea, Positive for Enteropathogenic Escherichia coli (EPEC): Patient was c/o watery diarrhea for multiple weeks. Stool PCR was positive for EPEC, C diff negative. He is set to complete a 3-day course of oral azithromycin. Left Scrotal Pain - RESOLVED: Patient was reporting tenderness/redness of his left testicle. Scrotal ultrasound was unremarkable. His left scrotal pain resolved entirely on 01/07/2024. DM Type II: Hgb A1c 6.1% this admission, he can resume his Ozempic at time of discharge. Hypercoagulable State History of Multiple DVT/PE: INR 3.3 this morning therefore his warfarin dose was held for today. He can resume taking his warfarin tomorrow morning as previously prescribed. Other Chronic Medical Conditions: HTN/RLS --> Can continue home medications for these specific conditions at time of discharge. PCP: Rubi Kaufman, Disposition: Patient is being discharged home in stable condition on oral antibiotics with close PCP/GI follow-up. Patient seen in collaboration with Dr. Christy. Please see addendum. I spent a total of 55 minutes coordinating, documenting, and providing care for this patient excluding time spent in the performance of separately billed services. This included personally reviewing all current laboratories and imaging studies, medical reconciliation, outpatient chart review and discussion with specialists. This chart was completed in part utilizing Speech Voice Recognition Software. Grammatical errors, random word insertions, pronoun errors, and incomplete sentences are an occasional consequence of this system due to software limitations, ambient noise, and hardware issues. Any formal questions or concerns about the content, text, or information contained within the body of this dictation should be directly addressed to the provider for clarification. Notes For Next Care Provider Patient will need a routine follow-up colonoscopy in approximately 6 to 8 weeks following completion of oral antibiotics. Medication Changes From Visit There were no medication changes made during this admission. Admission HPI Per Admitting Provider 58M pmh nonobstructive CAD, hypercoagulable state (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 Patient presented to the ED with abd pain 4d ago found to have diverticulitis and was d/c with cipro and flagyl. Represented today with continued abdominal pain without improvement. Given morphine IV in the ED which improved his symptoms. On my evaluation patient continues to endorse L flank pain as well as bilateral lower abdominal pain, approximately 4/10 in intensity. Also endorses nausea, has not been able to keep any food down. No other symptoms. Admission Exam Per Admitting Provider Constitutional: WD/WN, vitals as above Gastrointestinal (Abdomen): as above, some guarding in the L flank and bilateral lower abdomen. tender to palpation. Psychiatric: A+Ox3, euthymic affect Discharge Exam General: WD/WN, vitals as above, NAD, sitting up in bed, very pleasant, conversing appropriately. at bedside. A+Ox3, euthymic affect. Respiratory: Normal respiratory effort, lungs clear to auscultation, no wheeze, rales, rhonchi. No accessory muscle use. Cardiovascular: Regular rate, rhythm, no murmur, normal peripheral pulses, no BLE edema. Vessels: No JVD. Abdomen/GI: Active bowel sounds, midline laparotomy scar visualized, very mild tenderness in the left mid to lower abdomen, soft. Extremities/Musculoskeletal: No cyanosis or clubbing, extremities motor strength intact, moves all extremities. Neurologic: No focal deficits, CN's II-XI not formally tested but appear grossly intact bilaterally. Skin: No rashes, normal color, warm/dry. Updated Medication List Medication Instructions Recorded Confirmed Type lisinopril 20 mg tablet 20 mg PO QAM 10/02/22 01/03/24 History pramipexole 1 mg tablet 1 mg PO QPM 04/16/23 01/03/24 History semaglutide 0.25 mg or 0.5 mg (2 0.5 mg subcut WK 04/16/23 01/03/24 History mg/3 mL) subcutaneous pen injector (Ozempic) warfarin 5 mg tablet See Rx Instructions .Route .COMPLEX 04/16/23 01/03/24 History acetaminophen 500 mg capsule 1,000 mg PO Q6H PRN Fever Or Pain 10/14/23 01/03/24 History Lactobacillus acidophilus 10 100 mmu cells (0.01 x 10 billion 01/08/24 Rx billion cell capsule (Probiotic) cell) PO DAILY #14 caps amoxicillin 875 mg-potassium 1 tab PO BID 5 days #10 tabs 01/08/24 Rx clavulanate 125 mg tablet azithromycin 500 mg tablet 500 mg PO DAILY #1 tab 01/08/24 Rx Hospital Stay Data Consultations 01/03/24 12:31 ED Decision to Admit Stat 01/04/24 09:26 Consult Gastroenterology Routine 01/06/24 08:48 Consult General Surgery Routine Diagnostic Imagining Performed 01/03/24 09:35 CT abd pelvis wo con Stat 01/06/24 08:47 US scrotum/testicle Routine Pending Results Patient Have Any Pending Studies at Discharge: No Discharge Instructions Given to Patient (Per Discharging Provider) Mr. Emerson, Femi were admitted to the hospital after being found to have acute sigmoid diverticulitis on CT imaging of your abdomen and pelvis. You were subsequently treated with IV antibiotics and your symptoms improved. You are being discharged home on a 5-day course of oral AUGMENTIN. Please take this antibiotic as prescribed starting tomorrow morning. You were incidentally found to have Enteropathogenic Escherichia coli (EPEC) in your stool while you were admitted. EPEC is a type of E. coli bacteria that can make you sick with diarrhea. We therefore started you on a course of oral azithromycin as well. You are being discharged home with 1 more day of oral AZITHROMYCIN to take tomorrow morning. We are also sending you home with an oral probiotic to take while on antibiotics. Please complete both courses of antib iotics in their entirety! You will need a routine colonoscopy approximately 6-8 weeks following completion of the oral Augmentin course. This can be arranged at your primary care hospital discharge follow-up appointment with Dr. Kaufman as outlined below. You will be contacted soon to schedule a routine follow-up appointment with Jayy BRUMFIELD. You can continue to advance your diet slowly as tolerated. MEDICATION UPDATES/CHANGES: 1. We held your warfarin dose for today as your INR was 3.3 this morning. * Please resume taking your warfarin TOMORROW as originally prescribed! You can continue taking all of your other home medications as previously prescribed. UPCOMING APPOINTMENT Date & Time: 01/13/2024 @ 3:00PM Provider: Rubi Kaufman DO Department: [facility] @ [facility] Seek medical attention if you have: * temperature above 101F * chest pain or trouble breathing * abdominal pain, nausea, vomiting * diarrhea, dark stools or bloody stools * any unanswered questions or concerns Call 911 if symptoms are severe. Please take good care of yourself! It has been a pleasure taking care of you. If you have any questions regarding your recent hospitalization please contact [facility] and request Jayy Peñalozaist @ [phone]. Total Time Total Time Spent Total Time Spent (In Minutes): 55 Supervising Physician Co-Signing Physician Notes Patient seen and examined at bedside. Reports that he is feeling much better; abdomen pain has resolved and he is tolerating diet. Patient wants to go home; discharged on oral antibiotics with instruction to follow-up with PCP. Discussed about colonoscopy in 6 to 8 weeks time. I have reviewed the advanced practitioner's documentation, and I agree with, and take responsibility for the plan of care I spent a total of 20 minutes coordinating, documenting, and providing care for this patient excluding time spent in the performance of separately billed services. All of the aforementioned completed while collaborating with the assigned advanced practitioner for a full treatment plan
== END 2024-01-08 13:55 | disposition home or self-care (01) | DRG 392 ==
LOC: ED 09:13 → 3N 09:13 → SUATTDRO 13:03 → 3N 14:30 → SUATTDRO 01-05 14:00